=== PATIENT | female | born 2000 | race Caucasian/White ===

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

== ENCOUNTER 2020-07-05 21:58 | Outpatient (REF) | payer MEDICAID, SELFPAY ==
[2020-07-07 15:51] LABS: Chlamydia Result Negative (Negative); GC Result Negative (Negative)
== END 2020-07-05 22:18 ==
LOC: NCHCN 21:58
PROVIDERS: PCP Internal Medicine; Visit Provider Nurse Practitioner Family
DX: Z11.3 Encounter for screening for infections with a predominantly sexual mode of transmission (principal)
CPT/HCPCS: 87491; 87591

== ENCOUNTER 2021-10-17 09:52 | Outpatient (REF) | payer MEDICAID, SELFPAY ==
--- NOTE | 2021-10-17 09:00 | PAPFT_PTH ---
PATIENT: Liudmila Kiser LOC: [facility] U#:[id number] AGE/SX: 21/F ROOM: RE10/17/[address]: Grace Mendoza : 2000 BED: DIS: 10/17/2021 SPEC #: [id number] RECD: 10/18/21 12:53 STATUS: LUZ KENT #: [id number] PRESLEY: 10/17/21 09:[address]: Grace Raya [facility] Cytology RECD BY: Gail Ingram Tissues: 1 - CX/ENDOCX FOR PAP SMEARS Procedures: PAP THIN PREP/UVM Screening Comments: [id number]
[2021-10-17 15:00] LABS: Hemoglobin A1C 5.2 % (<5.7)
[2021-10-17 15:24] LABS: Calculated LDL 97 mg/dL (<100); Cholesterol 187 mg/dL (<200); HDL Cholesterol 76 mg/dL (40-60); TSH 1.97 uIU/mL (0.36-3.74); Triglyceride 71 mg/dL (<150)
== END 2021-10-17 09:53 | disposition home or self-care (01) ==
LOC: NCHCN 09:52
PROVIDERS: PCP Nurse Practitioner Family; Visit Provider Nurse Practitioner Family
DX: Z13.220 Encounter for screening for lipoid disorders (principal); E66.3 Overweight; Z13.1 Encounter for screening for diabetes mellitus; Z00.00 Encounter for general adult medical examination without abnormal findings; Z12.4 Encounter for screening for malignant neoplasm of cervix
CPT/HCPCS: 80061; 88142; 83036; 84443

== ENCOUNTER 2022-07-04 15:42 | Outpatient (REF) | payer MEDICAID, SELFPAY ==
[2022-07-06 15:25] LABS: Chlamydia Result Negative (Negative); GC Result Negative (Negative)
== END 2022-07-04 15:43 | disposition home or self-care (01) ==
LOC: NCHCN 15:42
PROVIDERS: PCP Nurse Practitioner Family; Visit Provider Nurse Practitioner Family
DX: R10.2 Pelvic and perineal pain (principal); R30.0 Dysuria
CPT/HCPCS: 87491; 87591

== ENCOUNTER 2024-10-26 18:51 | Outpatient (REF) | payer MEDICAID, SELFPAY ==
--- NOTE | 2024-10-26 14:30 | PAPFT_PTH ---
PATIENT: Liudmila Kiser LOC: [facility] U#:[id number] AGE/SX: 24/F ROOM: RE10/26/[address]: Grace Mendoza : 2000 BED: DIS: 10/26/2024 SPEC #: [id number] RECD: 10/27/24 12:47 STATUS: LUZ REQ #: [id number] PRESLEY: 10/26/24 14:[address]: Grace Raya DEPT: [facility] Cytology RECD BY: Gail Ingram Tissues: 1 - CX/ENDOCX FOR PAP SMEARS Procedures: PAP THIN PREP/UVM Screening HPV DNA PROBE Comments: [id number] (HPV 16 & 18/45)
--- OUTSIDE RECORDS SUMMARY | 2024-10-26 18:53 | XMS_ITS | Encounter Summary ---
Author Organization [facility] Address [address] [place] [address] Care Team Providers Care Teenage Babysitter Name Role Phone Grace Raya EARTHMOVING LABOURER Primary Care Provider [phone] Reason for Visit * Reason Onset Date Comments Medications Refill 10/14/2024 Encounter Details Date Type Department Care Team ([facility] Contact Info) Description 10/14/2024 Refill [facility] Rheumatology [address], [place] [id number] Dena Stephenson MD [address] [facility] [address] [place] [address] Medications Refill Social History Tobacco Use Types Packs/Day Years Used Date Smoking Tobacco: Never Smokeless Tobacco: Current Comments:Vape Alcohol Use Standard Drinks/Week Comments Yes 0 (1 standard drink = 0.6 oz pur e alcohol) rarely Humiliation, Afraid, Rape, and Kick questionnair e Answer Date Recorded Within the last year, have y ou been afraid of your partner or ex-partner? No 09/05/2020 Within the last year, have y ou been humiliated or emotionally abused in other ways by your partner or ex-partner? No Within the last year, have y ou been kicked, hit, slapped, or otherwise physically hurt by your partner or ex-partner? No 09/05/2020 Within the last year, have y ou been raped or forced to have any kind of sexual activity by your partner or ex-partner? No 09/05/2020 PHQ-2 Answer Date Recorded PHQ-2 SUBTOTAL 2 04/29/2024 Interpersonal Safety Answer Date Record ed Physically Hurt Never 06/12/2020 Verbally Threaten Not on file 06/12/2020 Comments Unknown Sex and Gender Information Value Date Recorded Sex Assigned at Not on file Legal Sex Female 18:34 EST Gender Identity Female 02/07/2020 8:04 EDT Sexual Orientation Not on file documented as of this encounter Functional Status * Are you deaf or do you have serious difficulty hearing? Answer Date of Assessment Author No 09/21/2022 9:26 EST Marlene Matson RN * Because of a physical, mental, or emotional condition, does this person have difficulty doing errands alone such as visiting a doctor's office or shopping? Answer Date of Assessment Author No 04/21/2024 10:55 EDT documented as of this encounter Mental Status * Because of a physical, mental, or emotional condition, does this person have serious difficulty concentrating, remembering, or making decisions? 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
--- OUTSIDE RECORDS SUMMARY | 2024-10-26 18:53 | XMS_ITS | Encounter Summary ---
Author Organization [facility] Address [address] [place] [address] Care Team Providers Care Electronic Warfare Officer Name Role Phone Grace Raya MUSICAL INSTRUMENT MECHANIC Primary Care Provider [phone] Reason for Referral * Radiology Services (Routine/Next Available) - Authorization Not Required Specialty Diagnoses / Procedures [facility] Referred To Contact Radiology Diagnoses Chronic right-sided low back pain with right-sided sciatica Procedures MR SI JOINTS WO CONTRAST MR PELVIS WO CONTRAST Dena Stephenson MD Phone: tel: fax: [facility] Referral ID Status Reason Start Date Expiration Date Visits Requested Visits Authorized [id number] Authorization Not Required 3 1 1 Reason for Visit * Reason Comments Follow-up Review test results Encounter Details Date Type Department Care Team (Late st Contact Info) Description 08/14/2023 14:30 EDT Telemedicine [facility] Rheumatology [address] [place] [address] Dena Stephenson MD [address] [facility] [place] [address] Chronic right-sided low back pain with right-sided sciatica (Primary Dx); Hypermobility arthralgia Social History Tobacco Use Types Packs/Day Years Used Date Smoking Tobacco: Never Smokeless Tobacco: Never Alcohol Use Standard Drinks/Week Comments Yes 0 (1 standard drink = 0.6 oz pur e alcohol) 5 drinks on weekends Humiliation, Afraid, Rape, and Kick questionnair e [...] by your partner or ex-partner? No 09/05/2020 Interpersonal Safety Answer Date Record ed Physically [...] or shopping? Answer Date of Assessment Author Yes 02/21/2021 9:47 EDT documented as of this encounter Mental Status * Because of a physical, mental, or emotional condition, does this person have serious difficulty concentrating, remembering, or making decisions? Answer Entry Date Author No 09/05/2020 15:32 EDT documented in this encounter Patient Instructions * Patient Instructions* Dena Stephenson MD - 08/14/2023 14:30 EDT Ordered blood test (HLA-B27 antigen test) Order non-contrast MRI pelvis Will be in touch with results and discuss next steps documented in this encounter Progress Notes * Dena Stephenson MD - 08/14/2023 1430 EDT [facility] Video Visit Today's visit was provided through telemedicine video conferencing: The location of the patient: Home The location of the provider: Home office Verbal consent: The concept of ???Telemedicine?? has been described to the patient.Patient has been informed of the anticipated benefits and possible risks. Patient understands the information provided regarding telemedicine, has had the opportunity to ask questions about this information, and all questions have been answered to patient???s satisfaction. Patient consents for the use of telemedicine in his/her medical care and authorizes the transmission of any relevant medical information to providers and their staff involved in patient???s medical or mental health care. Verbal consent obtained by myself or auxiliary staff: yes. Subjective: Chief Complaint(s): Follow-up (Review test results) HPI: Chronic right-sided low back pain with radicular features. Not classically responsive to NSAIDS. Equivocal inflammatory features. Hypermobility. Past xrays of the lumbar spine read as unremarkable interms of the spine itself and question of sclerotic changes involving the LEFT SI joint -- Iris is symptomatic on the right, moreso than left. Iris has a h/o vitiligo, alopecia areata, and eczema -- these autoimmune conditions are commonly associated. MRI in 2019 with asymmetric sacroiliitis on theright, predominantly iliac side of SI joint. EL 160, homogeneous pattern; specific antibodies for SLE, Sjogren's, etc are negative. No response to right SI joint injection in mid-2019, done at [facility] (in fact, steroid injection increased pain). INTERVAL HISTORY: Liudmila returns for follow up to review recent tests. Xrays of the SI joints from 08/02/23, were read as having mild degenerative changes and question of mild erosions of both joints. In my review, the erosions are not a definitive finding. Today, Liudmila reports no changes since the prior visit about two weeks ago. Liudmila is taking gabapentin, up to 300 mg per day, and occasional APAP. Has a stomach ulcer, so had to stop meloxicam, which had questionable benefit. I have reviewed patient's tobacco history: reports that she has never smoked. She has never used smokeless tobacco. I have reviewed current problem list and current medications. ROS: No new issues since visit two weeks ago. Objective: Examination: Home Vitals: There were no vitals taken for this visit. Pertinent exam findings: appears well, non-labored breathing and mood and affect appropriate Data reviewed with patient: most recent labs reviewed: see HPI and most recent imaging reviewed: see HPI Phlebotomy Only on 07/30/2023 Component Date Value Ref Range Status ? ? C-Reactive Protein 07/30/2023 <7.0 <10.0 mg/L Final ??? WBC 07/30/2023 9.16 4.00 - 12.40 K/cmm Final ??? RBC 07/30/2023 4.23 3.86 - 5.04 M/cmm Final ??? Hemoglobin 07/30/2023 12.6 11.6 - 15.2 g/dL Final ??? HCT 07/30/2023 37.1 34.9 - 44.4 % Final ??? MCV 07/30/2023 88 81 - 98 fL Final ??? MCH 07/30/2023 29.8 26.7 - 33.3 pg Final ??? MCHC 07/30/2023 34.0 32.1 - 35.9 g/dL Final ? ? RDW-CV 07/30/2023 12.2 <14.7 % Final ? ? RDW-SD 07/30/2023 39.3 <50.4 fl Final ??? PLT 07/30/2023 340 141 - 377 K/cmm Final ??? MPV 07/30/2023 10.2 9.5 - 12.7 fL Final ??? % Neutrophils 07/30/2023 60.4 % Final ??? % Lymphocytes 07/30/2023 26.5 % Final ??? % Monocytes 07/30/2023 7.6 % Final ??? % Eosinophils 07/30/2023 3.7 % Final ??? % Basophils 07/30/2023 0.9 % Final ??? % Immature Grans 07/30/2023 0.9 % Final ??? Absolute Neutrophils 07/30/2023 5.53 2.20 - 8.85 K/cmm Final ??? Absolute Lymphocytes 07/30/2023 2.43 1.09 - 3.30 K/cmm Final ??? Absolute Monocytes 07/30/2023 0.70 0.10 - 0.80 K/cmm Final ??? Absolute Eosinophils 07/30/2023 0.34 0.03 - 0.61 K/cmm Final ??? ABS Basophils 07/30/2023 0.08 0.01 - 0.11 K/cmm Final ??? Absolute Immature Grans 07/30/2023 0.08 (H) 0.00 - 0.06 K/cmm Final ??? Type of Differential: 07/30/2023 Auto Final ??? Sodium 07/30/2023 138 136 - 145 mmol/L Final ??? Potassium 07/30/2023 4.1 3.5 - 5.0 mmol/L Final ??? Chloride 07/30/2023 102 96 - 110 mmol/L Final ??? CO2 Total 07/30/2023 25 22 - 32 mmol/L Final ??? Glucose 07/30/2023 92 70 - 99 mg/dl Final ??? BUN 07/30/2023 10 10 - 26 mg/dL Final ??? Creatinine 07/30/2023 0.53 0.52 - 1.04 mg/dL Final ? ? eGFR 07/30/2023 133 >60 mL/min/1.73m2 Final ??? Total Protein 07/30/2023 8.4 (H) 6.3 - 8.2 g/dL Final ??? Albumin 07/30/2023 4.4 3.4 - 4.9 g/dL Final ??? Alkaline Phosphatase 07/30/2023 54 38 - 126 U/L Final ??? AST 07/30/2023 25 15 - 46 U/L Final ? ? ALT 07/30/2023 19 <35 U/L Final ? ? Bilirubin, Total 07/30/2023 0.5 <1.4 mg/dL Final ??? Calcium 07/30/2023 9.5 8.5 - 10.5 mg/dL Final ??? Albumin/Globulin Ratio 07/30/2023 1.1 1.0 - 2.5 g/dL Final ??? Anion Gap 07/30/2023 11 5 - 14 mmol/L Final Assessment & Plan: 1. Chronic right-sided low back pain with right-sided sciatica History of mostly unilateral (right sided) low back pain with equivocal inflammatory symptoms and equivocal response to NSAIDs; no response to steroid SI joint injection. Recent XR SI joints indicating mild erosions and more pronounced finding left side. Discussed with Iris that I need more information before confirming a diagnosis of autoimmune sacroiliitis vs. Hypermobility myalgia/arthralgiawith fibromyalgia features. Unilateral symptoms and normal C- reactive protein, as well as no definitive response to NSAIDs or SI joint injection favors the latter diagnosis. However, prior to concluding this, additional testing is warranted. - HLA B27 SCREEN, DNA; Future - MR PELVIS WO CONTRAST; Future 2. Hypermobility arthralgia As above. Follow up pending results. The following individuals and their role did participate in today's encounter visit: Provider: Dena Stephenson MD Patient Dena Stephenson MD 08/14/2023 15:12 documented in this encounter Plan of Treatment Upcoming Encounters Date Type Department Care Team (Late st Contact Info) Description 01/28/2025 8:30 EDT Office Visit [facility] Rheumatology [address] [place] [address] Dena Stephenson MD [address] [facility] [place] [address] documented as of this encounter Results * MR SI JOINTS WO CONTRAST (04/13/2024 17:08 EDT) Anatomical Region Laterality Modality Spine Magnetic Resonan ce 04/14/2024 14:0 9 EDT Impressions 04/14/2024 14:09 EDT * ??Bilateral SI joint changes as described above suggestive of prior sacroiliitis. * ??There are few foci of edema as described above which could suggest an active component, more conspicuous on the right. [id number] Narrative 04/14/2024 14:09 EDT Exam: MR SI JOINTS WO CONTRAST ??04/13/2024 4:28 PM Technique: MR SI JOINTS WO CONTRAST ?? Signs and Symptoms/Comments: Chronic SI joint pain, primarily right-sided, with mention of erosions seen on XR; clinically not definitive for autoimmune sacroiliitis; need more information to guide treatment; Chronic SI joint pain, primarily right-sided, with mention of erosions seen on XR; clinically not definitive for autoimmune sacroiliitis; need more information to guide treatment;M54.41:Chronic right-sided low back pain ?? Comparison: None. FINDINGS: BONE MARROW: No concerning lesions or significant signal abnormality. SACROILIAC JOINTS: Sacral and Iliac Bone: Subchondral sclerosis is present bilaterally within the mid, superior, and inferior SI joints. Scattered regions of subchondral edema within the right iliac side of the SI joint along its mid and superior levels. A few foci of subchondral edema within the left iliac side of the SI joint are also present along its mid aspect. Joint Effusion: None. Erosive Changes: Bilateral osseous irregularity along the subchondral iliac side of the mid SI joints consistent with osseous erosions. Osteophytes: None. VISIBLE LUMBAR SPINE: Unremarkable. VISIBLE EXTRASPINAL SOFT TISSUES: Unremarkable. Resulting Agency Comment [id number] Procedure Note Jese Turcios MD - 04/14/2024 Exam: MR SI JOINTS WO CONTRAST 04/13/2024 4:28 PM Technique: MR SI JOINTS WO CONTRAST Signs and Symptoms/Comments: Chronic SI joint pain, primarily right-sided,with mention of erosions seen on XR; clinically not definitive forautoimmune sacroiliitis; need more information to guide treatment; ChronicSI joint pain, primarily right-sided, with mention of erosions seen on XR;clinically not definitive for autoimmune sacroiliitis; need moreinformation to guide treatment;M54.41:Chronic right-sided low back pain Comparison: None. FINDINGS: BONE MARROW: No concerning lesions or significant signal abnormality. SACROILIAC JOINTS: Sacral and Iliac Bone: Subchondral sclerosis is present bilaterally withinthe mid, superior, and inferior SI joints. Scattered regions ofsubchondral edema within the right iliac side of the SI joint along itsmid and superior levels. A few foci of subchondral edema within the leftiliac side of the SI joint are also present along its mid aspect. Joint Effusion: None. Erosive Changes: Bilateral osseous irregularity along the subchondraliliac side of the mid SI joints consistent with osseous erosions. Osteophytes: None. VISIBLE LUMBAR SPINE: Unremarkable. VISIBLE EXTRASPINAL SOFT TISSUES: Unremarkable. IMPRESSION * Bilateral SI joint changes as described above suggestive of priorsacroiliitis. * There are few foci of edema as described above which could suggest anactive component, more conspicuous on the right. [id number] Dena Stephenson MD IMG MRI ORDERABLES Final Result * HLA B27 SCREEN, DNA (08/17/2023 11:21 EDT) HLAB-B27 Result Positive Not Applicable 08/22/2023 15:12 EDT [facility] Interpretation SEE NOTE 08/22/2023 15:12 EDT [facility] Comment: HLA-B27 antigen was detected. Approximately 8% of the normal population carries the HLA-B27 antigen. HLA-B27 is present in approximately 89% of patients with ankylosing spondylitis, 79% of patients with Catherine's syndrome and 42% of patients with juvenile rheumatoid arthritis. However, lacking other data, it is not diagnostic for these disorders. This test does not differentiate B27 alleles. i.e. B*27:05, B*27:06, etc. ADDITIONAL INFORMATION Method: Flow Cytometry CLIA: [id number] ??CLIA Filer Repairer: ABDULKADIR MCPHERSON MD,PhD Test Performed by: [address] [address] Filer Repairer: Abdulkadir Mcpherson M.D. Ph.D.; CLIA# [id number] Blood VENOUS BLOOD / Unknown Venipuncture / Unknown 08/17/2023 11:21 EDT 08/17/2023 11:40 EDT Dena Stephenson MD TISSUE TYPING ORDERABLES Final Result [address] [address] documented in this encounter Visit Diagnoses Diagnosis Chronic right-sided low back pain with right-sided sciatica- Primary Hypermobility arthralgia Pain in joint, site unspecified Chronic right-sided low back pain with right-sided sciatica documented in this encounter Discontinued Medications Medication Sig Discontinue Reason Start Date End Da te triamcinolone (KENALOG) 0.1 % cream Apply topically 2 times daily. Alternate therapy 08/14/2023 documented as of this encounter Care Teams Electronic Warfare Officer Relationship Specialty Start Date End Date Grace Raya, MUSICAL INSTRUMENT MECHANIC [address] [place] [address] PCP - General 05/19/20 documented as of this encounter
--- OUTSIDE RECORDS SUMMARY | 2024-10-26 18:53 | XMS_ITS | Encounter Summary ---
Author Organization [facility] Address [address] [place] [address] Care Team Providers Care Armature Winder Name Role Phone Grace Raya SCIENTIFIC LINGUIST Primary Care Provider [phone] Reason for Referral * Radiology Services (Routine/Next Available) - Authorization Not Required Specialty Diagnoses / Procedures Referred By Contac t Referred To Contact Radiology Diagnoses Chronic right-sided low back pain with right-sided sciatica Procedures MR SI JOINTS WO CONTRAST MR PELVIS WO CONTRAST Dena Stephenson MD Phone: tel: fax: [facility] Referral ID Status Reason Start Date Expiration Date Visits Requested Visits Authorized [id number] Authorization Not Required 3 1 1 Reason for Visit * Radiology Services (Routine/Next Available) - Authorization Not Required Specialty Diagnoses / Procedures Referred By Contac t Referred To Contact Radiology Diagnoses Chronic right-sided low back pain with right-sided sciatica Procedures MR SI JOINTS WO CONTRAST MR PELVIS WO CONTRAST Dena Stephenson MD Phone: tel: fax: [facility] Referral ID Status Reason Start Date Expiration Date Visits Requested Visits Authorized [id number] Authorization Not Required 3 1 1 Encounter Details Date Type Department Care Team (Latest Contact Info) Description 04/13/2024 16:15 EDT - 04/13/2024 23:59 EDT Hospital Encounter [facility] [address] [place] [id number] Chronic right-sided low back pain with right-sided sciatica Discharge Disposition: Home or Self Care Social History Tobacco Use Types Packs/Day Years [...] 09/05/2020 15:32 EDT documented in this encounter Medications at Time of Discharge albuterol 90 mcg/actuation inhaler busPIRone (BUSPAR) 5 mg tablet Take 1 Tablet by mouth 2 times daily. 07/09/2023 citalopram (CELEXA) 20 mg tablet TAKE 1.5 TABLETS BY MOUTH EVERY DAY 12/17/2019 ondansetron (ZOFRAN) 4 mg tablet Take 1 Tablet by mouth every 8 hours as needed for Nausea. 10 Tablet 09/21/2022 rizatriptan benzoate (RIZATRIPTAN ORAL) Take by mouth if needed (PRN for migraine). triamcinolone (ARISTOCORT) 0.5 % cream Apply topically 2 times daily. use thin layer, as needed gabapentin (NEURONTIN) 100 mg capsule Take 3 Capsules by mouth daily. 3-4 times weekly 12/17/2019 prochlorperazine (COMPAZINE) 10 mg tablet Take 1 Tablet by mouth every 6 hours as needed for Nausea. 10 Tablet 09/19/2022 4 documented as of this encounter Discharge Disposition Disposition Code Departure Means Destination Home or Self Care documented in this encounter Plan of Treatment Upcoming Encounters Date Type Department Care Team (Late st Contact Info) Description 01/28/2025 8:30 EDT Office Visit [facility] Rheumatology [address] [place] [address] Dena Stephenson MD [address] [facility] [place] [phone] documented as of this encounter Procedures Procedure Name Priority Date/Time Associated Diagnosis Comments MR SI JOINTS WO CONTRAST Routine 04/13/2024 17:08 EDT Chronic right-sided low back pain with right-sided sciatica documented in this encounter Results * MR SI JOINTS WO CONTRAST (04/13/2024 17:08 EDT) Anatomical Region Laterality Modality Spine Magnetic Resonan ce 04/14/2024 14:0 9 EDT Impressions 04/14/2024 14:09 EDT * ??Bilateral SI joint changes as described above suggestive of prior sacroiliitis. * ??There are few foci of edema as described above which could suggest an active component, more conspicuous on the right. [id number] Narrative 04/14/2024 14:09 EDT Exam: MR SI [...] EXTRASPINAL SOFT TISSUES: Unremarkable. Resulting Agency Comment [id number] Procedure Note Jese Turcios MD - 04/14/2024 [...] anactive component, more conspicuous on the right. [id number] us Dena Stephenson MD IMG MRI ORDERABLES Final Result documented in this encounter Visit Diagnoses Diagnosis Chronic right-sided low back pain with right-sided sciatica documented in this encounter Care Teams Armature Winder Relationship Specialty Start Date End Date Grace Raya, BRUCE [address] [place] [address] PCP - General 05/19/20 documented as of this encounter
--- OUTSIDE RECORDS SUMMARY | 2024-10-26 18:53 | XMS_ITS | Encounter Summary ---
Author Organization [facility] Address [address] [place] [address] Care Team Providers Care Aquatics Director Name Role Phone Grace Raya SPIN TABLE OPERATOR Primary Care Provider [phone] Encounter Details Date Type Department Care Team ([facility] Contact Info) Description 11/29/2022 Orders Only [facility] Radiology - [facility] [address] [place] [address] Alex Parrish MD [address] [place] [address] Social History Tobacco Use Types Packs/Day Years [...] Info) Description 01/28/2025 8:30 EDT Office Visit [facility] Rheumatology [address] [place] [id number] Dena Stephenson MD [address] [facility] [address] [place] [phone] documented as of this encounter Visit Diagnoses Not on filedocumented in this encounter Care Teams Aquatics Director Relationship Specialty Start Date End Date Grace Raya NP [address] [place] [address] PCP - General 05/19/20 documented as of this encounter
--- OUTSIDE RECORDS SUMMARY | 2024-10-26 18:53 | XMS_ITS | Encounter Summary ---
Author Organization [facility] Address [address] [place] [address] Care Team Providers Care Mechanical Reliability Engineer Name Role Phone Grace Raya DEVELOPMENT REPRESENTATIVE Primary Care Provider Reason for Referral * Radiology Services (Routine/Next Available) - Authorization Not Required Specialty Diagnoses / Procedures Referred By Navdeep olvera Referred To Contact Diagnoses Chronic right-sided low back pain with right-sided sciatica Procedures XR SACROILIAC JOINTS 3 OR MORE VIEWS Dena Stephenson MD Phone: tel: fax: [facility] Referral ID Status Reason Start Date Expiration Date Visits Requested Visits Authorized [id number] Authorization Not Required 07/30/2023 1 1 Reason for Visit * Reason Comments Follow-up Chronic right-sided low back pain: Past 2 weeks she has been having a lot of pain and can't get out of bed. The pain has been radiating from the right to the left. Pain in neck and shoulder as well. Encounter Details Date Type Department Care Team (Late Contact Info) Description 07/30/2023 11:30 EDT Office Visit [facility] Rheumatology [address] [place] [address] Dena Stephenson MD [address] [place] [address] [address] [place] [address] Chronic right-sided low back pain with right-sided sciatica (Primary Dx); Myalgia; Hypermobility arthralgia Social History Tobacco Use Types [...] on file documented as of this encounter Last Filed Vital Signs Vital Sign Reading Time Taken Comments Blood Pressure 118/76 07/30/2023 1126 EDT Pulse 76 07/30/2023 1126 EDT Temperature 36.3 ??C (97.4 ??F) 07/30/2023 1126 EDT Respiratory Rate - - Oxygen Saturation - - Inhaled Oxygen Concentration - - Weight 71.7 kg (158 lb) 07/30/2023 1126 EDT Height - - Body Mass Index 28.9 07/01/2022 2254 EDT documented in this encounter Functional Status * Are you [...] * Patient Instructions* Dena Stephenson MD - 07/30/2023 11:30 EDT Labs and xrays today Will send you results on [facility] [place] [facility] documented in this encounter Progress Notes * Dena Stephenson MD - 07/30/2023 1130 EDT [facility] Rheumatology Chief Complaint Patient presents with ??? Follow-up Chronic right-sided low back pain: Past 2 weeks she has been having a lot of pain and can't get outof bed. The pain has been radiating from the right to the left. Pain in neck and shoulder as well. HPI: Chronic right-sided low back pain with radicular features. Past xrays of the lumbar spine read as unremarkable in terms of the spine itself and question of sclerotic changes involving the LEFT SI joint -- Iris is symptomatic on the right. Iris has a h/o vitiligo, alopecia areata, and eczema -- these autoimmune conditions are commonly associated. MRI with asymmetric sacroiliitis on the right, predominantly iliac side of SI joint. EL 160, homogeneous pattern; specific antibodies for SLE, Sjogren's, etc are negative. No response to right SI joint injection in mid-2019, done at [facility] (in fact, increased pain). INTERVAL HISTORY: Liudmila returns for follow up. Last follow up was almost 3 years ago. Liudmila has a h/o chronic right sided low back pain, involving the SI joint. Not classically responsive to NSAIDS. Equivocal inflammatory features. Hypermobility. 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 I ordered a right SI joint cortisone injection at the last visit. Per review of the chart, Liudmila also had an evaluation at [facility] in 02/2021, and no definitive diagnosis was given; another rheumatology consult was recommended. Today, Liudmila says she has had difficulty over the past two weeks with a lot of pain and not wanting to get out of bed due to pain. Says lying still helps. Regarding the right SI joint injection that she had in 2019, she says the injection hurt a lot and says she passed out on the table as well. Liudmila says the injection didn't help as well. Says she gave up on going to appointments for her back because nothing was helping. Says pain is still on the right side, but she has occasional similar symptoms on the left as well. Liudmila also mentions that the right side of her neck hurts, into the rightshoulder blade. Says sternum pops when she actively pushes her chest forward. Low back hurts more in the morning, but says it's hard to say if pain improves with movement. Liudmila says she is using tiger balm, massage, exercising, stretching. She is taking gabapentin, up to300 mg per day, and occasional APAP. Has a stomach ulcer, so had to stop meloxicam, which had questionable benefit. Outpatient Encounter Medications as of 07/30/2023 Medication Sig ??? albuterol 90 mcg/actuation inhaler 2 puff(s) inhaled every 6 hours prn ??? citalopram (CELEXA) 20 mg tablet TAKE 1.5 TABLETS BY MOUTH EVERY DAY ??? gabapentin (NEURONTIN) 100 mg capsule Take 3 Capsules by mouth daily. ??? inhalational spacing device (AEROCHAMBER MV) Inhale as directed. (Patient not taking: Reported on 06/12/2021) ??? levonorgestrel (MARIAN INTRAUTERINE) by intrauterine route. Put in 3 days ago. (Patient not taking: Reported on 07/30/2023) ??? ondansetron (ZOFRAN) 4 mg tablet Take 1 Tablet by mouth every 8 hours as needed for Nausea. ??? prochlorperazine (COMPAZINE) 10 mg tablet Take 1 Tablet by mouth every 6 hours as needed for Nausea. ??? rizatriptan benzoate (RIZATRIPTAN ORAL) Take by mouth if needed (PRN for migraine). ??? triamcinolone (ARISTOCORT) 0.5 % cream Apply topically 2 times daily. use thin layer ??? triamcinolone (KENALOG) 0.1 % cream Apply topically 2 times daily. (Patient not taking: Reported on 06/12/2021) No facility-administered encounter medications on file as of 07/30/2023. Allergies include: Fluconazole and Prednisone Patient Active Problem List Diagnosis ??? Exercise-induced asthma ??? Chronic right-sided low back pain with right-sided sciatica ??? Chronic gingivitis ??? Alcohol abuse ??? Alopecia ??? Sacroiliitis (HCC-CMS) ??? Lichen simplex chronicus ??? Bacterial vaginosis ??? Vaginal candidiasis ??? Right lumbar radiculopathy ??? Perianal dermatitis ??? Depression with anxiety ??? Fear of flying ??? History of varicella ??? Learning difficulty ??? Mild intermittent asthma ??? Classical migraine ??? IUD contraception ??? Pes planus ??? Overweight ??? Eczema ??? 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 Lives in [place]. Review of Systems: No reports of shortness of breath. Has eczema, treated with topical steroid. Physical Examination: BP 118/76 (BP Cuff Location: Right arm, BP Patient Position: Sitting) Pulse 76 Temp 36.3 ??C (97.4 ??F) (Temporal) Wt 71.7 kg (158 lb) BMI 28.90 kg/m?? EYES: Conjunctivae not injected. NECK: Normal extension and lateral rotation without pain, with discomfort right trap muscles, radiating to right shoulder blade, rhomboid muscle group, which is tender. JOINT EXAM: No synovitis of the joints of the hands, wrists. Full painless ROM of shoulders, elbows, wrists, hips, knees and ankles. Elbows and knees are hypermobile. Tender points in all 4 quadrants. Pes planus. BACK: Tender at right and left SI joint and across lower back. Negative JOHNNA bilaterally. Can flexforward and touch floor. SKIN: No rash on arms, legs. No nail pitting. Hypopigmentation on forehead. Labs: Phlebotomy Only on 07/30/2023 Component Date Value [...] 07/30/2023 11 5 - 14 mmol/L Final Xrays lumbar spine, 08/12/19, Josefina, indicated increased sclerosis of the left SI joint, and unremarkable lumbar spine. Xrays reviewed. I agree with this assesment. MRI pelvis, 07/01/20: Findings of asymmetric sacroiliitis, right greater than left, most concerning for inflammatory arthropathy. Of note, sclerosis is predominantly iliac side of the SI joint. Assessment and Plan: 1. Chronic right-sided low back pain with right-sided sciatica Chronic right sided low back pain, involving the SI joint. Not classically responsive to NSAIDS. Equivocal inflammatory features. Did not improve with cortisone injection. Liudmila has hypermobility and fibromyalgia features. Labs with C-reactive protein are within normal limits. At this time, I have astrong suspicious that her symptoms are due to fibromyalgia and hypermobility. I'm not convinced that this is early ankylosing spondylitis or other inflammatory spondyloarthropathy. Another consideration is osteitis condensans ilii due to mechanical cause. Will update image to assess for any progression. - XR SACROILIAC JOINTS 3 OR MORE VIEWS; Future 2. Myalgia - C REACTIVE PROTEIN; Future - COMPLETE BLOOD COUNT AND DIFFERENTIAL; Future - COMPREHENSIVE METABOLIC PANEL (CMP); Future 3. Hypermobility arthralgia I discussed with Liudmila that if test results are indicative of non-inflammatory cause, then treatmentshould be focused on chronic pain and fibromyalgia, following up with her PCP. Follow up pending results. I spent a total of 45 minutes on the date of this encounter meeting with the patient and reviewing documentation/coordinating care as described in the above note. No procedures were performed at the time of the visit. Dena Stephenson MD 07/30/2023 11:36 documented in this encounter Plan of Treatment Upcoming Encounters Date Type Department Care Team (Late st Contact Info) Description 01/28/2025 8:30 EDT Office Visit [facility] Rheumatology [address] [place] [address] Dena Stephenson MD [address] [place] [address] [place] [phone] documented as of this encounter Results * XR SACROILIAC JOINTS 3 OR MORE VIEWS (08/02/2023 16:15 EDT) Anatomical Region Laterality Modality Spine Computed Radiogr aphy 08/02/2023 15:5 1 EDT Impressions 08/03/2023 14:22 EDT Mild degenerative changes of the sacroiliac joints with evidence of mild erosions which is suggestive of a sacroiliitis. THIS DOCUMENT HAS BEEN ELECTRONICALLY SIGNED BY WENDY LOVING MD FOR ANY QUESTIONS OR CONCERNS REGARDING THIS REPORT PLEASE CALL [facility] AT [phone] Narrative 08/03/2023 14:22 EDT PROCEDURE INFORMATION: Exam: XR Bilateral Sacroiliac Joints Exam date and time: 08/02/2023 3:51 PM Age: 23 years old Clinical indication: Other chronic pain; Lumbago with sciatica, right side; Other: Progressive low back pain; Assess for sacroiliitis TECHNIQUE: Imaging protocol: XR bilateral XR of the sacroiliac joints. Views: 3 or more views. COMPARISON: MR PELVIS WITHOUT CONTRAST 06/30/2020 5:31 PM FINDINGS: Bones/joints: There are mild degenerative changes of the sacroiliac joints, left greater than right. There is a nonspecific sclerotic lesion within the left femoral neck which likely represents a bone island. Small erosions are seen about the sacroiliac joints. ??No acute fracture. ??No dislocation. Soft tissues: ??No radiopaque foreign body. Procedure Note Wendy Loving MD - 08/03/2023 PROCEDURE INFORMATION: Exam: XR Bilateral Sacroiliac Joints Exam date and time: 08/02/2023 3:51 PM Age: 23 years old Clinical indication: Other chronic pain; Lumbago with sciatica, right side; Other: Progressive low back pain; Assess for sacroiliitis TECHNIQUE: Imaging protocol: XR bilateral XR of the sacroiliac joints. Views: 3 or more views. COMPARISON: MR PELVIS WITHOUT CONTRAST 06/30/2020 5:31 PM FINDINGS: Bones/joints: There are mild degenerative changes of the sacroiliac joints, left greater than right. There is a nonspecific sclerotic lesion within the left femoral neck which likely represents a bone island. Small erosions are seen about the sacroiliac joints. No acute fracture. No dislocation. Soft tissues: No radiopaque foreign body. IMPRESSION Mild degenerative changes of the sacroiliac joints with evidence of mild erosions which is suggestive of a sacroiliitis. THIS DOCUMENT HAS BEEN ELECTRONICALLY SIGNED BY WENDY LOVING MD FOR ANY QUESTIONS OR CONCERNS REGARDING THIS REPORT PLEASE CALL [facility] [phone] us Dena Stephenson MD IMG DIAGNOSTIC IMAGING ORDERABL ES Final Result * (ABNORMAL) COMPREHENSIVE METABOLIC PANEL (CMP) (07/30/2023 12:22 EDT) Sodium 138 136 - 145 mmol/L 07/30/2023 13:08 [facility] Potassium 4.1 3.5 - 5.0 mmol/L 07/30/2023 13:08 [facility] Chloride 102 96 - 110 mmol/L 07/30/2023 13:08 [facility] CO2 Total 25 22 - 32 mmol/L 07/30/2023 13:08 [facility] Glucose 92 70 - 99 mg/dl 07/30/2023 13:08 [facility] BUN 10 10 - 26 mg/dL 07/30/2023 13:08 [facility] Creatinine 0.53 0.52 - 1.04 mg/dL 07/30/2023 13:08 [facility] eGFR 133 >60 mL/min/1.7 3m2 07/30/2023 13:08 [facility] Total Protein 8.4(H) 6.3 - 8.2 g/dL 07/30/2023 13:08 [facility] Albumin 4.4 3.4 - 4.9 g/dL 07/30/2023 13:08 [facility] Alkaline Phosphatase 54 38 - 126 U/L 07/30/2023 13:08 [facility] AST 25 15 - 46 U/L 07/30/2023 13:08 [facility] ALT 19 <35 U/L 07/30/2023 13:08 [facility] Bilirubin, Total 0.5 <1.4 mg/dL 07/30/20 13:08 [facility] Calcium 9.5 8.5 - 10.5 mg/dL 07/30/2023 13:08 [facility] Albumin/Globulin Ratio 1.1 1.0 - 2.5 g/dL 07/30/2023 13:08 [facility] Anion Gap 11 5 - 14 mmol/L 07/30/2023 13:08 [facility] Blood VENOUS BLOOD / Unknown Venipuncture / Unknown 07/30/2023 12:22 EDT 07/30/2023 12:34 EDT us Dena Stephenson MD CHEMISTRY & BLOOD GAS ORDERABLE S Final Result [facility] [address] [place] [address] * (ABNORMAL) COMPLETE BLOOD COUNT AND DIFFERENTIAL (07/30/2023 12:22 EDT) WBC 9.16 4.00 - 12.40 K/cmm 07/30/2023 12:46 [facility] RBC 4.23 3.86 - 5.04 M/cmm 07/30/2023 12:46 [facility] Hemoglobin 12.6 11.6 - 15.2 g/dL 07/30/2023 12:46 [facility] HCT 37.1 34.9 - 44.4 % 07/30/2023 12:46 [facility] MCV 88 81 - 98 fL 07/30/2023 12:46 [facility] MCH 29.8 26.7 - 33.3 pg 07/30/2023 12:46 [facility] MCHC 34.0 32.1 - 35.9 g/dL 07/30/2023 12:46 [facility] RDW-CV 12.2 <14.7 % 07/30/2023 12:46 [facility] RDW-SD 39.3 <50.4 fl 07/30/2023 12:46 [facility] PLT 340 141 - 377 K/cmm 07/30/2023 12:46 [facility] MPV 10.2 9.5 - 12.7 fL 07/30/2023 12:46 [facility] % Neutrophils 60.4 % 07/30/2023 12:46 [facility] % Lymphocytes 26.5 % 07/30/2023 12:46 [facility] % Monocytes 7.6 % 07/30/2023 12:46 [facility] % Eosinophils 3.7 % 07/30/2023 12:46 [facility] % Basophils 0.9 % 07/30/2023 12:46 [facility] % Immature Grans 0.9 % 07/30/20 12:46 [facility] Absolute Neutrophils 5.53 2.20 - 8.85 K/cmm 07/30/2023 12:46 [facility] Absolute Lymphocytes 2.43 1.09 - 3.30 K/cmm 07/30/2023 12:46 [facility] Absolute Monocytes 0.70 0.10 - 0.80 K/cmm 07/30/2023 12:46 [facility] Absolute Eosinophils 0.34 0.03 - 0.61 K/cmm 07/30/2023 12:46 [facility] ABS Basophils 0.08 0.01 - 0.11 K/cmm 07/30/2023 12:46 [facility] Absolute Immature Grans 0.08(H) 0.00 - 0.06 K/cmm 07/30/2023 12:46 [facility] Type of Differential: Auto 07/30/2023 12:46 [facility] Blood VENOUS BLOOD / Unknown Venipuncture / Unknown 07/30/2023 12:22 EDT 07/30/2023 12:33 EDT us Dena Stephenson MD PACKAGES & DNA PROBE ORDERABLES Final Result [facility] [address] [place] [address] * C REACTIVE PROTEIN (07/30/2023 12:22 EDT) C-Reactive Protein <7.0 <10.0 mg/L 07/30/2023 13:08 EDT [facility] Blood VENOUS BLOOD / Unknown Venipuncture / Unknown 07/30/2023 12:22 EDT 07/30/2023 12:34 EDT us Dena Stephenson MD CHEMISTRY & BLOOD GAS ORDERABLE S Final Result [facility] [address] [place] [address] documented in this encounter Visit Diagnoses Diagnosis Chronic right-sided low back pain with right-sided sciatica- Primary Myalgia Mylagia and myositis, unspecified Hypermobility arthralgia Pain in joint, site unspecified Chronic right-sided low back pain with right-sided sciatica documented in this encounter Discontinued Medications Medication Sig Discontinue Reason Start Date End Da te levonorgestrel (MARIAN INTRAUTERINE) by intrauterine route. Put in 3 days ago. Therapy completed 07/30/2023 inhalational spacing device (AEROCHAMBER MV)Indications:use with proaire HFA Inhale as directed. Therapy completed 3 documented as of this encounter Historical Medications * This list may reflect changes made after this encounter. busPIRone (BUSPAR) 5 mg tablet Take 1 Tablet by mouth 2 times daily. 07/09/2023 added in this encounter Care Teams Mechanical Reliability Engineer Relationship Specialty Start Date End Date Grace Raya DEVELOPMENT REPRESENTATIVE [address] [place] [address] PCP - General 05/19/20 documented as of this encounter
--- OUTSIDE RECORDS SUMMARY | 2024-10-26 18:53 | XMS_ITS | Encounter Summary ---
Author Organization [facility] Address [address] [place] [address] Care Team Providers Care Brake Shoe Rebuilder Name Role Phone Grace Raya PROCEDURES TECH Primary Care Provider [phone] Encounter Details Date Type Department Care Team (Latest Contact Info) Description 09/09/2024 13:10 EDT Phlebotomy Only [facility] Laboratory Services - [address] [address] Need for hepatitis B screening test; Need for hepatitis C screening test; Screening for tuberculosis Social History Tobacco Use Types Packs/Day Years [...] 09/05/2020 15:32 EDT documented in this encounter Miscellaneous Notes * Result Encounter Note - Dena Stephenson MD - 09/09/2024 1310 EDT Proceeding with approval of [facility] documented in this encounter Plan of Treatment Upcoming Encounters Date Type Department Care Team (Late st Contact Info) Description 01/28/2025 8:30 EDT Office Visit [facility] Rheumatology [address] [place] [address] Dena Stephenson MD [address] [place] [address] [place] [phone] documented as of this encounter Procedures Procedure Name Priority Date/Time Associated Diagnosis Comments QUANTIFERON MITOGEN (PERFORMABLE) Routine 09/09/2024 13:08 EDT Screening for tuberculosis QUANTIFERON TB2 (PERFORMABLE) Routine 09/09/2024 13:08 EDT Screening for tuberculosis QUANTIFERON TB1 (PERFORMABLE) Routine 09/09/2024 13:08 EDT Screening for tuberculosis QUANTIFERON NIL (PERFORMABLE) Routine 09/09/2024 13:08 EDT Screening for tuberculosis QUANTIFERON INTERPRETATION (PERFORMABLE) Today 09/09/2024 13:08 EDT Screening for tuberculosis QUANTIFERON TB GOLD PLUS Routine 09/09/2024 13:08 EDT Screening for tuberculosis HEPATITIS C AB W REFLEX TO HCV RNA BY PCR Routine 09/09/2024 13:08 EDT Need for hepatitis C screening test HEPATITIS B SURFACE ANTIGEN Routine 09/09/2024 13:08 EDT Need for hepatitis B screening test documented in this encounter Results * QUANTIFERON INTERPRETATION (PERFORMABLE) (09/09/2024 13:08 EDT) Pathologist [facility] Quantiferon Interpretation Negative Negative 09/10/2024 13:00 EDT [facility] Comment:No interferon-gamma response to M. tuberculosis antigens was detected. ??Infection with M. tuberculosis is unlikely. A single negative result does not exclude infection with M. tuberculosis. ??In patients at high risk for M. tuberculosis infection, a second test should be considered. TB1 Ag minus Nil 0.00 IU/mL 09/10/20 13:00 EDT [facility] TB2 Ag minus Nil 0.00 IU/mL 09/10/20 13:00 EDT [facility] Blood VENOUS BLOOD / Unknown Venipuncture / Unknown 09/09/2024 13:08 EDT 09/10/2024 12:47 EDT us Dena Stephenson MD IMMUNOLOGY AND SEROLOGY ORDERAB LES Final Result [facility] [address] [place] [address] * QUANTIFERON MITOGEN (PERFORMABLE) (09/09/2024 13:08 EDT) Blood VENOUS BLOOD / Unknown Venipuncture / Unknown 09/09/2024 13:08 EDT 09/09/2024 13:10 EDT us Dena Stephenson MD IMMUNOLOGY AND SEROLOGY ORDERAB LES Final Result Performing Organization Address [facility] Co de Phone Number [facility] [address] [place] [address] * QUANTIFERON TB2 (PERFORMABLE) (09/09/2024 13:08 EDT) Blood VENOUS BLOOD / Unknown Venipuncture / Unknown 09/09/2024 13:08 EDT 09/09/2024 13:10 EDT us Denastef Stephenson MD IMMUNOLOGY AND SEROLOGY ORDERAB LES Final Result Performing Organization Address [facility] Co de Phone Number [facility] [address] [place] [address] * QUANTIFERON TB1 (PERFORMABLE) (09/09/2024 13:08 EDT) Blood VENOUS BLOOD / Unknown Venipuncture / Unknown 09/09/2024 13:08 EDT 09/09/2024 13:10 EDT us Denastef Stephenson MD IMMUNOLOGY AND SEROLOGY ORDERAB LES Final Result Performing Organization Address [facility] Co de Phone Number [facility] [address] [place] [id number] * QUANTIFERON NIL (PERFORMABLE) (09/09/2024 13:08 EDT) Blood VENOUS BLOOD / Unknown Venipuncture / Unknown 09/09/2024 13:08 EDT 09/09/2024 13:10 EDT us Denastef Stephenson MD IMMUNOLOGY AND SEROLOGY ORDERAB LES Final Result Performing Organization Address [facility]/ZIP Co de Phone Number [facility] [address] [place] [phone] * HEPATITIS C AB W REFLEX TO HCV RNA BY PCR (09/09/2024 13:08 EDT) Hep C Antibody Negative Negative 09/10/2024 15:36 EDT [facility] Blood VENOUS BLOOD / Unknown Venipuncture / Unknown 09/09/2024 13:08 EDT 09/09/2024 13:10 EDT Dena Stephenson MD CHEMISTRY & BLOOD GAS ORDERABLE S Final Result [facility] [address] [place], [place] [phone] * HEPATITIS B SURFACE ANTIGEN (09/09/2024 13:08 EDT) Hep B Surface Ag Negative Negative 09/10/2024 14:42 EDT [facility] Blood VENOUS BLOOD / Unknown Venipuncture / Unknown 09/09/2024 13:08 EDT 09/09/2024 13:10 EDT Dena Stephenson MD CHEMISTRY & BLOOD GAS ORDERABLE S Final Result [facility] [address] [place], [place] [address] documented in this encounter Visit Diagnoses Diagnosis Need for hepatitis B screening test Need for hepatitis C screening test Special screening examination for other specified viral diseases Screening for tuberculosis Screening examination for pulmonary tuberculosis documented in this encounter Care Teams Brake Shoe Rebuilder Relationship Specialty Start Date End Date Grace Raya NP [address] [place] [address] PCP - General 05/19/20 documented as of this encounter
--- OUTSIDE RECORDS SUMMARY | 2024-10-26 18:53 | XMS_ITS | Encounter Summary ---
Author Organization [facility] Address [address] [place] [address] Care Team Providers Care Steel Division Supervisor Name Role Phone Elver Grace Still SALES CONTRACT ADMINISTRATOR Primary Care Provider [phone] Reason for Visit * Reason Comments Back Pain Ankylosing spondylit is flare up since Saturday, unable to control pain with home remedies. Followed by trust and estates attorney. Encounter Details Date Type Department Care Team (Latest Contact Info) Description 04/29/2024 16:47 EDT - 04/29/2024 16:48 EDT Hospital Encounter [facility] - [address] [address] Discharge Disposition: Left without being seen Social History Tobacco Use Types Packs/Day Years [...] Sign Reading Time Taken Comments Blood Pressure 145/80 04/29/2024 1617 EDT Pulse 87 04/29/2024 1617 EDT Temperature 37.2 ??C (99 ??F) 04/29/2024 1617 EDT Respiratory Rate 24 04/29/2024 1617 EDT Oxygen Saturation 98% 04/29/2024 1617 EDT Inhaled Oxygen Concentration - - Weight - - Height - - Body Mass Index - - documented in this encounter Functional Status * [...] 1.5 TABLETS BY MOUTH EVERY DAY 12/17/2019 clobetasoL (TEMOVATE) 0.05 % external solutionIndicati ons:Psoriasis Apply topically 2 times daily. 50 mL 2 04/21/2024 ondansetron (ZOFRAN) 4 mg tablet Take 1 Tablet by mouth every 8 hours as needed for Nausea. 10 Tablet 09/21/2022 rizatriptan benzoate (RIZATRIPTAN ORAL) Take by mouth if needed (PRN for migraine). triamcinolone (ARISTOCORT) 0.5 % cream Apply topically 2 times daily. use thin layer, as needed UNKNOWN TO PATIENT control gabapentin (NEURONTIN) 100 mg capsule Take 3 Capsules by mouth daily. 3-4 times weekly 12/17/2019 4 documented as of this encounter Discharge Disposition Disposition Code Departure Means Destination Comment s Left without being seen documented in this encounter Plan of Treatment Upcoming Encounters Date Type Department Care Team (Late st Contact Info) Description 01/28/2025 8:30 EDT Office Visit [facility] Rheumatology [address] [place] [address] Dena Stephenson MD [address] [facility] [address] [place] [phone] documented as of this encounter Visit Diagnoses Not on filedocumented in this encounter Historical Medications * This list may reflect changes made after this encounter. UNKNOWN TO PATIENT control added in this encounter Care Teams Steel Division Supervisor Relationship Specialty Start Date End Date Grace Raya NP [address] [place] [address] PCP - General 05/19/20 documented as of this encounter
--- OUTSIDE RECORDS SUMMARY | 2024-10-26 18:53 | XMS_ITS | Encounter Summary ---
Author Organization [facility] Address [address] [place] [address] Care Team Providers Care Utility Manager Name Role Phone Grace Raya CORNER CUTTER Primary Care Provider [phone] Encounter Details Date Type Department Care Team ([facility] Contact Info) Description 07/30/2023 12:[address] [facility] - Outpatient Phlebotomy Drawing [address] [place] [address] Lab, [facility] Phlebotomy Myalgia Social History Tobacco Use Types Packs/Day Years [...] Info) Description 01/28/2025 8:30 EDT Office Visit [facility] Rheumatology [address] [place] [address] Dena Stephenson MD [address] [facility] [address] [place] [address] documented as of this encounter Procedures Procedure Name Priority Date/Time Associated Diagnosis Comments COMPLETE BLOOD COUNT AND DIFFERENTIAL Routine 07/30/2023 12:22 EDT Myalgia C REACTIVE PROTEIN Routine 07/30/2023 12 :22 EDT Myalgia COMPREHENSIVE METABOLIC PANEL (CMP) Routine 07/30/2023 12:22 EDT Myalgia documented in this encounter Results * (ABNORMAL) COMPREHENSIVE METABOLIC PANEL (CMP) (07/30/2023 12:22 EDT) Sodium 138 136 - 145 mmol/L 07/30/2023 13:08 EDT [facility] Potassium 4.1 3.5 - 5.0 mmol/L 07/30/2023 13:08 EDT [facility] Chloride 102 96 - 110 mmol/L 07/30/2023 13:08 [facility] CO2 Total 25 22 - 32 mmol/L 07/30/2023 13:08 [facility] Glucose 92 70 - 99 mg/dl 07/30/2023 13:08 [facility] BUN 10 10 - 26 mg/dL 07/30/2023 13:08 [facility] Creatinine 0.53 0.52 - 1.04 mg/dL 07/30/2023 13:08 [facility] eGFR 133 >60 mL/min/1.7 3m2 07/30/2023 13:08 [facility] Total Protein 8.4(H) 6.3 - 8.2 g/dL 07/30/2023 13:08 [facility] Albumin 4.4 3.4 - 4.9 g/dL 07/30/2023 13:08 [facility] Alkaline Phosphatase 54 38 - 126 U/L 07/30/2023 13:08 [facility] AST 25 15 - 46 U/L 07/30/2023 13:08 [facility] ALT 19 <35 U/L 07/30/2023 13:08 [facility] Bilirubin, Total 0.5 <1.4 mg/dL 07/30/20 13:08 [facility] Calcium 9.5 8.5 - 10.5 mg/dL 07/30/2023 13:08 [facility] Albumin/Globulin Ratio 1.1 1.0 - 2.5 g/dL 07/30/2023 13:08 [facility] Anion Gap 11 5 - 14 mmol/L 07/30/2023 13:08 [facility] Blood VENOUS BLOOD / Unknown Venipuncture / Unknown 07/30/2023 12:22 EDT 07/30/2023 12:34 EDT us Dena Stephenson MD CHEMISTRY & BLOOD GAS ORDERABLE S Final Result [facility] [address] [place] [address] * (ABNORMAL) COMPLETE BLOOD COUNT AND DIFFERENTIAL (07/30/2023 12:22 EDT) WBC 9.16 4.00 - 12.40 K/cmm 07/30/2023 12:46 [facility] RBC 4.23 3.86 - 5.04 M/cmm 07/30/2023 12:46 [facility] Hemoglobin 12.6 11.6 - 15.2 g/dL 07/30/2023 12:46 [facility] HCT 37.1 34.9 - 44.4 % 07/30/2023 12:46 [facility] MCV 88 81 - 98 fL 07/30/2023 12:46 [facility] MCH 29.8 26.7 - 33.3 pg 07/30/2023 12:46 [facility] MCHC 34.0 32.1 - 35.9 g/dL 07/30/2023 12:46 [facility] RDW-CV 12.2 <14.7 % 07/30/2023 12:46 [facility] RDW-SD 39.3 <50.4 fl 07/30/2023 12:46 [facility] PLT 340 141 - 377 K/cmm 07/30/2023 12:46 [facility] MPV 10.2 9.5 - 12.7 fL 07/30/2023 12:46 [facility] % Neutrophils 60.4 % 07/30/2023 12:46 [facility] % Lymphocytes 26.5 % 07/30/2023 12:46 [facility] % Monocytes 7.6 % 07/30/2023 12:46 [facility] % Eosinophils 3.7 % 07/30/2023 12:46 [facility] % Basophils 0.9 % 07/30/2023 12:46 [facility] % Immature Grans 0.9 % 07/30/20 12:46 [facility] Absolute Neutrophils 5.53 2.20 - 8.85 K/cmm 07/30/2023 12:46 [facility] Absolute Lymphocytes 2.43 1.09 - 3.30 K/cmm 07/30/2023 12:46 [facility] Absolute Monocytes 0.70 0.10 - 0.80 K/cmm 07/30/2023 12:46 [facility] Absolute Eosinophils 0.34 0.03 - 0.61 K/cmm 07/30/2023 12:46 [facility] ABS Basophils 0.08 0.01 - 0.11 K/cmm 07/30/2023 12:46 [facility] Absolute Immature Grans 0.08(H) 0.00 - 0.06 K/cmm 07/30/2023 12:46 [facility] Type of Differential: Auto 07/30/2023 12:46 [facility] Blood VENOUS BLOOD / Unknown Venipuncture / Unknown 07/30/2023 12:22 EDT 07/30/2023 12:33 EDT us Dena Stephenson MD PACKAGES & DNA PROBE ORDERABLES Final Result Performing Organization Address [facility] Co de Phone Number [facility] [address] [place] [address] * C REACTIVE PROTEIN (07/30/2023 12:22 EDT) C-Reactive Protein <7.0 <10.0 mg/L 07/30/2023 13:08 EDT [facility] Blood VENOUS BLOOD / Unknown Venipuncture / Unknown 07/30/2023 12:22 EDT 07/30/2023 12:34 EDT us Dena Stephenson MD CHEMISTRY & BLOOD GAS ORDERABLE S Final Result Performing Organization Address City/[facility]/ZIP Co de Phone Number [facility] [address] [place] [phone] documented in this encounter Visit Diagnoses Diagnosis Myalgia Mylagia and myositis, unspecified documented in this encounter Care Teams Utility Manager Relationship Specialty Start Date End Date Grace Raya NP [address] [place] [address] PCP - General 05/19/20 documented as of this encounter
--- OUTSIDE RECORDS SUMMARY | 2024-10-26 18:53 | XMS_ITS | Encounter Summary ---
Author Organization [facility] Address [address] [place] [address] Care Team Providers Care Pipe Machine Operator Name Role Phone Grace Raya ASSEMBLER KNIFE Primary Care Provider [phone] Encounter Details Date Type Department Care Team (Latest Contact Info) Description 09/22/[address] [facility] [address] [place], [place] [phone] Jese Becker [facility] Set up initial fill for Spondyloarthritis, Patient Education for Spondyloarthritis, Prospective Review for Spondyloarthritis Social History Tobacco Use Types Packs/Day Years [...] 09/05/2020 15:32 EDT documented in this encounter Progress Notes * Claudia Diaz - 09/22/2024 0829 EST New Start Outreach 09/22/2024 Medication Name: Humira Pen 40mg/0.4ml Copay/Day Supply: 0/28ds Copay Assistance: No Copay Assistance Type: N/A Notes: [facility] Training: Transfer to [facility] for Med Ed (new starts, therapy changes & dose changes) PCC Initials: CLS * Jese Becker [facility] - 09/22/2024 0829 EST [facility] Telephone Encounter 09/23/24 Contact: Outgoing Spoke with: Patient Reason: NS Humira Patient declining injection training. [facility] contacting patient to attempt to provide med ed for NS Nehalria. Assessment & Plan: LM - can call back to clinic or [facility] to ask to speak with [facility] for med ed. Method of Communication: Telephonic Jese Becker PharmD (he/him) Ambulatory Pharmacist Clinician Rheumatology 09/23/2024 * Sheila Reza [facility] - 09/22/2024 0829 EST [facility] Telephone Encounter 09/24/24 Method of Communication: Telephonic Spoke with: Left message for patient Reason: Med education for Humira Patient declined injection training. [facility] contacting patient to attempt to provide med ed for NS Humria. Assessment & Plan: LM - patient can call back to clinic or [facility] to speak with [facility] for med ed. Also sent op5t message. Sheila Reza, PharmD OP Ambulatory Pharmacist Clinician Penny 09/24/2024 * Sheila Reza [facility] - 09/22/2024 0829 EST [facility] Rheumatology/Immunology Clinic Clinical Pharmacist Note Medication Therapy Initiation Liudmila Kiser is a 24 y.o. female being started on Humira (adalimumab) for SpA. I performed a complete review of the patient???s medical record, including medications, immunizations, and allergies. Dose & Frequency: Humira (adalimumab) 40mg/0.4mL PEN 40 mg SQ every 14 days Planned Start Date: 09/25/24 Pharmacy: [facility] Potential barriers to therapy: None Method of Education: Telephone Prior Therapies: ibuprofen, meloxicam - minimal benefit Pre-Screening Labs: Lab Results Component Value Date WBC 9.16 07/30/2023 RBC 4.23 07/30/2023 HGB 12.6 07/30/2023 HCT 37.1 07/30/2023 MCV 88 07/30/2023 MCHC 34.0 07/30/2023 RDW 12.5 05/19/2020 PLT 340 07/30/2023 Lab Results Component Value Date NA 138 07/30/2023 K 4.1 07/30/2023 CL 102 07/30/2023 CO2 25 07/30/2023 BUN 10 07/30/2023 CREATININE 0.53 07/30/2023 Lab Results Component Value Date AST 25 07/30/2023 ALT 19 07/30/2023 ALKPHOS 54 07/30/2023 TBIL 0.5 07/30/2023 LABALBU 4.4 07/30/2023 TP 8.4 (H) 07/30/2023 No results found for: HIVRAPID, HIVP, [id number] Hep B Screening: no evidence of past or current infection Lab Results Component Value Date HBSAG Negative 09/09/2024 Lab Results Component Value Date Hep B Surface Ab, Qualitative Negative 05/12/2020 Lab Results Component Value Date Hepatitis B Core Ab, Total Negative 05/12/2020 TB Screening: Lab Results Component Value Date Quantiferon Interpretation Negative 09/09/2024 Hep C Screening: Lab Results Component Value Date XHCSCR2 Negative 09/09/2024 Medications: Outpatient Encounter Medications as of 09/22/2024 Medication Sig adalimumab (HUMIRA,CF, PEN) 40 mg/0.4 mL pen Inject 0.4 mL into the skin every 14 days. albuterol 90 mcg/actuation inhaler (Patient not taking: Reported on 04/29/2024) busPIRone (BUSPAR) 5 mg tablet Take 1 Tablet by mouth 2 times daily. citalopram (CELEXA) 20 mg tablet TAKE 1.5 TABLETS BY MOUTH EVERY DAY clobetasoL (TEMOVATE) 0.05 % external solution Apply topically 2 times daily. cyclobenzaprine (FLEXERIL) 5 mg tablet Take 1 Tablet by mouth at bedtime. gabapentin (NEURONTIN) 300 mg capsule Take 1 Capsule by mouth 3 times daily. ondansetron (ZOFRAN) 4 mg tablet Take 1 Tablet by mouth every 8 hours as needed for Nausea. (Patient not taking: Reported on 04/29/2024) rizatriptan benzoate (RIZATRIPTAN ORAL) Take by mouth if needed (PRN for migraine). (Patient not taking: Reported on 04/29/2024) triamcinolone (ARISTOCORT) 0.5 % cream Apply topically 2 times daily. use thin layer, as needed UNKNOWN TO PATIENT control No facility-administered encounter medications on file as of 09/22/2024. Drug Interactions: none Allergies Allergen Reactions Fluconazole Anaphylaxis Prednisone Hives and Palpitations Assessment & Plan Indication, effectiveness, safety and adherence of specialty medications were reviewed today. Patient was educated on the Humira labeled black box warnings regarding the risk of serious infections including tuberculosis and malignancies. Discussed other precautions with Humira including anaphylaxis/hypersensitivity and hepatitis B reactivation. Patient denies personal history of demyelinating disease or heart failure and was made aware of these precautions as well. Patient was educated on the importance of infection prevention including best practices for hand hygiene and the annual fluvaccine. Discussed the need to avoid live vaccines during treatment. Dose hold parameters were reviewed including suspected/known infection, prescribed antibiotic therapy, or scheduled surgery. Patient agrees to contact the clinic to review dose hold in these settings. Educated patient on the potential side effects of Humira including injection site reaction, headache, rash, and infections such as URTI/sinusitis. Discussed with patient that it may take 3-4 months to experience the full benefit of Humira. A review of dosing, storage, and administration was completed. Patient was educated on the dosing schedule, 40 mg subcutaneous every 14 days. Patient was made aware that Humira must be stored in the refrigerator and remains stable at room temperature for 14 days. Patient was advised on proper site rotation, site sterilization, and allowing the medication to reach room temperature prior to injection. Patient was encouraged to schedule an injection teaching appointment if they prefer to have first injection completed with medical oversight and was directed to view additional online video resources if needed. Patient will be provided with a sharps container or patient will purchase one and disposal of Humira was discussed. Patient questions/concerns: none reported Recommended immunizations: COVID-19. ok to get whenever she is ready and does not need to be timed with humira Counseled the patient on the following: -Therapeutic rationale / Goals of therapy discussed - reduce inflammation and joint pain -Onset of action: 4-12 weeks -Dosage and administration discussed - 40mg subQ once every other week -Safe handling, storage, and disposal - reviewed one time use and sharp container -Therapy contraindications discussed - none -Possible adverse effects and management - infection, headache, inj site rxn as well as black boxedwarning -Possible drug and prescription drug interactions - none -Adherence and missed doses discussed -Adherence tools reviewed: Calendar, Cell phone Outcomes of Education: Independent Follow up: - Phone call: 6 week follow up with pharmacist at next fill - Follow-up Labs: CBC/CMP every 3-4 months - Clinic Appointment: Follow up with Dena Stephenson. SHEILA REZA RPH Ambulatory Pharmacist Clinician - Rheumatology 09/25/2024 documented in this encounter Plan of Treatment Upcoming Encounters Date Type Department Care Team (Late st Contact Info) Description 01/28/2025 8:30 EDT Office Visit [facility] Rheumatology [address] [place] [address] Dena Stephenson MD [address] [facility] [address] [place] [address] documented as of this encounter Visit Diagnoses Not on filedocumented in this encounter Care Teams Pipe Machine Operator Relationship Specialty Start Date End Date Grace Raya NP [address] [place] [address] PCP - General 05/19/20 documented as of this encounter
--- OUTSIDE RECORDS SUMMARY | 2024-10-26 18:53 | XMS_ITS | Encounter Summary ---
Author Organization [facility] Address [address] [place] [address] Care Team Providers Care Lease Administration Analyst Name Role Phone Grace Raya WEB PAGE DEVELOPER Primary Care Provider [phone] Reason for Visit * Reason Onset Date Comments Medications Refill 09/22/2024 Encounter Details Date Type Department Care Team ([facility] Contact Info) Description 09/22/2024 Refill [facility] Rheumatology [address] [place], [place] [phone] Dena Stephenson MD [address] [facility] [address] [place] [address] Medications Refill Social History Tobacco [...] Info) Description 01/28/2025 8:30 EDT Office Visit [facility] Rheumatology [address] [place], [place] [phone] Dena Stephenson MD [address] [facility] [address] [place] [phone] documented as of this encounter Visit Diagnoses Diagnosis 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
--- OUTSIDE RECORDS SUMMARY | 2024-10-26 18:53 | XMS_ITS | Referral Summary ---
Author Organization [facility] Address [address] [place] [address] Care Team Providers Care Sql Server Architect Name Role Phone ElverGrace Tessy PUPPET MAKER Primary Care Provider [phone] Encounters Date Type Department Care Team Description 10/15/2024 Specialty Pharmacy [facility] [address] [place] [address] [phone] Jese Becker RPH Initial Clinical Follow-up (by 6 weeks) for Spondyloarthritis, Refill Coordination Outreach for Spondyloarthritis 10/14/2024 Refill [facility] Rheumatology [address] [place] [address] Dena Stephenson MD Medications Refill 10/11/2024 Refill [facility] Rheumatology [address] [place], [place] [address] Dena Stephenson MD Medications Refill 09/22/2024 Refill [facility] Rheumatology [address] [place] [address] [phone] Dena Stephenson MD Medications Refill 09/22/2024 Specialty Pharmacy [facility] [address] [place] [phone] Jese Becker RPH Set up initial fill for Spondyloarthritis, Patient Education for Spondyloarthritis, Prospective Review for Spondyloarthritis 09/18/2024 Telephone [facility] Rheumatology [address] [place] [address] Dena Stephenson MD Prior Auth, Medication (Humira) 09/09/2024 Telephone [facility] Rhe[facility] [address] [place], [place] [address] Dena Stephenson MD Appointment Related 09/09/2024 13:10 EDT Phlebotomy Only [facility] Services - [facility] ([facility] [address] [place] [address] [phone] Need for hepatitis B screening test; Need for hepatitis C screening test; Screening for tuberculosis from Last 3 Months Allergies Active Allergy Reactions Criticality Noted Date Comments Fluconazole Anaphylaxis High 07/01/2022 Prednisone Hives,Palpitations 02/07/2020 Medications citalopram (CELEXA) 20 mg tablet TAKE 1.5 TABLETS BY MOUTH EVERY DAY Active albuterol 90 mcg/actuation inhaler Active rizatriptan benzoate (RIZATRIPTAN ORAL) Take by mouth if needed (PRN for migraine). Active triamcinolone (ARISTOCORT) 0.5 % cream Apply topically 2 times daily. use thin layer, as needed Active ondansetron (ZOFRAN) 4 mg tablet Take 1 Tablet by mouth every 8 hours as needed for Nausea. 10 Tablet 022 Active Additional Information Patient not taking.Reported on 04/29/2024 busPIRone (BUSPAR) 5 mg tablet Take 1 Tablet by mouth 2 times daily. 023 Active clobetasoL (TEMOVATE) 0.05 % external solutionIndications:Ps oriasis Apply topically 2 times daily. 50 mL 2 Active UNKNOWN TO PATIENT control Active gabapentin (NEURONTIN) 300 mg capsule Take 1 Capsule by mouth 3 times daily. 90 Capsule 1 Active adalimumab (HUMIRA,CF, PEN) 40 mg/0.4 mL penIndications:Seroneg ative spondyloarthropathy Inject 0.4 mL into the skin every 14 days. 2 Each 5 Active cyclobenzaprine (FLEXERIL) 5 mg tablet Take 1 Tablet by mouth at bedtime. 30 Tablet 024 Active cyclobenzaprine (FLEXERIL) 5 mg tablet Take 1 Tablet by mouth at bedtime. 30 Tablet 024 2023 Disconti nued(August galvan) Active Problems Patient Care Coordination No te Formatting of this note migh t be different from the original. 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 Bacterial vaginosis 03/22/2021 Vaginal candidiasis 03/22/2021 Perianal dermatitis 03/22/2021 Depression with anxiety 03/22/2021 Fear of flying 03/22/2021 History of varicella 03/22/2021 Learning difficulty 03/22/2021 Mild intermittent asthma 03/22/2021 Classical migraine 03/22/2021 IUD contraception 03/22/2021 Pes planus 03/22/2021 Overweight 03/22/2021 Eczema 03/22/2021 Vitiligo 03/22/2021 Chronic gingivitis 07/21/2020 Alcohol abuse 07/21/2020 Chronic right-sided low back pain with right-slade ed sciatica 05/19/2020 Immunizations Name Administration Dates Next Due Covid-19 mRNA Vaccine (MODER NA COVID-19) PF 0.5 ml IM (12 yrs+) 12/08/2020,11/09/2020 Hepatitis A 02/25/2018,07/18/2017 Hepatitis A Vaccine Adult (HAVRIX/VAQTA) IM 07/18/2017 Hepatitis A Vaccine Ped-Adol (HAVRIX/VAQTA) 2 Dose IM 02/25/2018 Hepatitis B 08/15/2010,02/15/2010,11/01/2009 Hib 10/14/2010,08/21/2001,05/13/2001 Historical DTaP Vaccine, Unspecified ,08/21/2001,05/13/2001,12/09,2000 Historical H Influenzae Type B Conj Vaccine, Unspecified 2000 Historical HPV Vaccine, Unspecified 02/26/2014,1 ,06/25/2013 Historical Influenza Vaccine , Unspecified 09/17/2012 Historical Meningococcal ACW Y Vaccine, Unspecified 07/12/2011 Historical Pneumococcal Conj ugate Vaccine, Unspecified 08/21/2001,05/13/2001,2000,10/14 Historical Polio Vaccine, Unspecified ,07/25/2005,05/13/2001,12/09 Influenza Vaccine Quad (AFLU JOHNNY) PF 0.5 ml IM (3 yrs+) 08/12/2019,10/10/2018,08/20/2017 MMR Vaccine SQ 07/18/2004,08/21/2001 Meningococcal Conjugate (MCV 4) Vaccine (MENACTRA) 4-Valent IM 07/18/2017 Tdap Vaccine =>7YO IM 07/12/2011 Social History Tobacco Use Types Packs/Day Years Used Date Smoking Tobacco: Never Smokeless Tobacco: Current Tobacco Cessation:Ready to Q uit: Not Asked; Counseling Given: Not Answered Comments:Vape Alcohol Use Standard Drinks/Week Comments Yes [...] 8:04 EDT Sexual Orientation Not on file Last Filed Vital Signs Vital Sign Reading Time Taken Comments Blood Pressure 134/82 05/20/2024 0808 EDT Pulse 70 05/20/2024 0808 EDT Temperature 36.7 ??C (98.1 ??F) 05/20/2024 0808 EDT Respiratory Rate 18 05/20/2024 0808 EDT Oxygen Saturation 99% 05/20/2024 0808 EDT Inhaled Oxygen Concentration - - Weight 74.8 kg (165 lb) 04/21/2024 1051 EDT Height 157.5 cm (5' 2) 07/01/2022 2254 EDT Body Mass Index 30.18 07/01/2022 2254 EDT Functional Status * Are you deaf or do you have serious difficulty hearing? Answer Date of Assessment Author No 09/21/2022 9:26 Marlene Laura RN * Because of a physical, mental, or emotional condition, does this person have difficulty doing errands alone such as visiting a doctor's office or shopping? Answer Date of Assessment Author No 04/21/2024 10:55 EDT Mental Status * Because of a physical, mental, or emotional condition, does this person have serious difficulty concentrating, remembering, or making decisions? Answer Entry Date Author No 09/05/2020 15:32 EDT Plan of Treatment Upcoming Encounters Date Type Department Care Team (Late st Contact Info) Description 01/28/2025 8:30 EDT Office Visit [facility] Rheumatology [address] [place] [address] [id number] Dena Stephenson MD [address] [place] [address] [address] [place] [phone] Procedures Procedure Name Priority Date/Time Associated Diagnosis Comments QUANTIFERON INTERPRETATION (PERFORMABLE) Today 09/09/2024 13:08 EDT Screening for tuberculosis QUANTIFERON MITOGEN (PERFORMABLE) Routine 09/09/2024 13:08 EDT [...] EDT Need for hepatitis B screening test from Last 3 Months Results * QUANTIFERON MITOGEN (PERFORMABLE) (09/09/2024 13:08 EDT) Blood VENOUS BLOOD / Unknown Venipuncture / Unknown 09/09/2024 13:08 EDT 09/09/2024 13:10 EDT Dena Stephenson MD IMMUNOLOGY AND SEROLOGY ORDERAB LES Final Result Performing Organization Address City/[facility]/ZIP Co de Phone Number [facility] [address] [place] [address] * QUANTIFERON TB2 (PERFORMABLE) (09/09/2024 13:08 EDT) Blood VENOUS BLOOD / Unknown Venipuncture / Unknown 09/09/2024 13:08 EDT 09/09/2024 13:10 EDT Dena Stephenson MD IMMUNOLOGY AND SEROLOGY ORDERAB LES Final Result Performing Organization Address City/[facility] Co de Phone Number [facility] [address] [place] [address] * QUANTIFERON TB1 (PERFORMABLE) (09/09/2024 13:08 EDT) Blood VENOUS BLOOD / Unknown Venipuncture / Unknown 09/09/2024 13:08 EDT 09/09/2024 13:10 EDT Dena Stephenson MD IMMUNOLOGY AND SEROLOGY ORDERAB LES Final Result [facility] [address] [place] [address] * QUANTIFERON NIL (PERFORMABLE) (09/09/2024 13:08 EDT) Blood VENOUS BLOOD / Unknown Venipuncture / Unknown 09/09/2024 13:08 EDT 09/09/2024 13:10 EDT us Dena Stephenson MD IMMUNOLOGY AND SEROLOGY ORDERAB LES Final Result Performing Organization Address City/[facility] Co de Phone Number [facility] [address] [place] [address] * QUANTIFERON INTERPRETATION (PERFORMABLE) (09/09/2024 13:08 EDT) [facility] Quantiferon Interpretation Negative Negative 09/10/2024 13:00 EDT [facility] Comment:No interferon-gamma response to M. tuberculosis antigens was detected. ??Infection with M. tuberculosis is unlikely. A single negative result does not exclude infection with M. tuberculosis. ??In patients at high risk for M. tuberculosis infection, a second test should be considered. TB1 Ag minus Nil 0.00 IU/mL 09/10/20 13:00 EDT [facility] TB2 Ag minus Nil 0.00 IU/mL 09/10/20 13:00 EDT [facility] Blood VENOUS BLOOD / Unknown Venipuncture / Unknown 09/09/2024 13:08 EDT 09/10/2024 12:47 EDT Dena Stephenson MD IMMUNOLOGY AND SEROLOGY ORDERAB LES Final Result Performing Organization Address City/[facility]/ZIP Co de Phone Number [facility] [address] [place], [place] [phone] * HEPATITIS C AB W REFLEX TO HCV RNA BY PCR (09/09/2024 13:08 EDT) Hep C Antibody Negative Negative 09/10/2024 15:36 EDT [facility] Blood VENOUS BLOOD / Unknown Venipuncture / Unknown 09/09/2024 13:08 EDT 09/09/2024 13:10 EDT Dena Stephenson MD CHEMISTRY & BLOOD GAS ORDERABLE S Final Result [facility] [address] [place] [address] * HEPATITIS B SURFACE ANTIGEN (09/09/2024 13:08 EDT) Hep B Surface Ag Negative Negative 09/10/2024 14:42 EDT [facility] Blood VENOUS BLOOD / Unknown Venipuncture / Unknown 09/09/2024 13:08 EDT 09/09/2024 13:10 EDT Dena Stephenson MD CHEMISTRY & BLOOD GAS ORDERABLE S Final Result [facility] [address] [place] [address] from Last 3 Months Insurance MEDICAID [facility] MEDICAID [place] Care Teams Sql Server Architect Relationship Specialty Start Date End Date Grace Raya NP [address] [place] [address] PCP - General 05/19/20
--- OUTSIDE RECORDS SUMMARY | 2024-10-26 18:53 | XMS_ITS | Encounter Summary ---
Author Organization [facility] Address [address] [place] [address] Care Team Providers Care Loader Malt House Name Role Phone Grace Raya .NET ARCHITECT Primary Care Provider [phone] Reason for Visit * Reason Onset Date Comments Medication Problem 05/20/2024 Encounter Details Date Type Department Care Team ([facility] Contact Info) Description 05/20/2024 Telephone [facility] Ur[facility] Care - [address] [address] Gill Blake MD [address] [place] [address] Medication Problem Social History Tobacco Use Types Packs/Day Years [...] documented in this encounter Miscellaneous Notes * Telephone Encounter - Mayra Wells RN - 05/20/2024 0902 EDT Insurance won't cover ciprodex per pharmacy they will cover Cipro HC ear drops 3 drops BID. Please advise. documented in this encounter Plan of Treatment Upcoming Encounters Date Type Department Care Team (Late st Contact Info) Description 01/28/2025 8:30 EDT Office Visit [facility] Rheumatology [address] [place], [place] [phone] Dena Stephenson MD [address] [facility] [address] [place] [address] documented as of this encounter Visit Diagnoses Not on filedocumented in this encounter Care Teams Loader Malt House Relationship Specialty Start Date End Date Grace Raya, .NET ARCHITECT [address] [place] [address] PCP - General 05/19/20 documented as of this encounter
--- OUTSIDE RECORDS SUMMARY | 2024-10-26 18:53 | XMS_ITS | Encounter Summary ---
Author Organization [facility] Address [address] [place] [address] Care Team Providers Care Tax Examining Technician Name Role Phone Julian Rayai Tessy PIPE CLEANER Primary Care Provider [phone] Encounter Details Date Type Department Care Team (Latest Contact Info) Description 09/19/2022 Travel Social History Tobacco Use Types Packs/Day Years [...] 8:04 EDT Sexual Orientation Not on file COVID-19 Exposure Response Date Recorded In the last 10 days, have kenneth gunter been in contact with someone who was confirmed or suspected to have Coronavirus/COVID-19? No / Unsure 09/19/2022 8:33 EST documented as of this encounter Functional Status * Are you deaf or do you have serious difficulty hearing? Answer Date of Assessment Author No 09/19/2022 8:30 EST Son Santana RN * Because of a physical, mental, [...] Info) Description 01/28/2025 8:30 EDT Office Visit [facility] Rheumatology [address] [place] [address] [phone] Dena Stephenson MD [address] [facility] [address] [place] [address] documented as of this encounter Visit Diagnoses Not on filedocumented in this encounter Care Teams Tax Examining Technician Relationship Specialty Start Date End Date Grace Raya NP [address] [place], [place] [address] PCP - General 05/19/20 documented as of this encounter
--- OUTSIDE RECORDS SUMMARY | 2024-10-26 18:53 | XMS_ITS | Encounter Summary ---
Author Organization [facility] Address [address] [place] [address] Care Team Providers Care Corrosion Prevention Metal Sprayer Name Role Phone ElverGrace Tessy ORBITREAD OPERATOR Primary Care Provider [phone] Reason for Visit * Reason Comments Otalgia Left ear pain and lo ss of hearing w/ discharge x 1 month. Reccurent ear infections. Denies fever. Encounter Details Date Type Department Care Team (Latest Contact Info) Description 05/20/2024 8:11 EDT - 05/20/2024 9:07 EDT Hospital Encounter [facility] - [address] [address] Newton Aguirre MD [address] [place] [address] Otitis externa of left ear, unspecified chronicity, unspecified type (Primary Dx) Discharge Disposition: Home or Self Care Social [...] 09/05/2020 15:32 EDT documented in this encounter Discharge Instructions * Discharge Instructions* Newton Aguirre MD - 05/20/2024 9:03 EDT Ibuprofen up to 400-600 mg every 6 hours as needed. Better tolerated with food. Tylenol up to 1000 mg every 8 hours as needed. * Attachments The following attachments cannot be sent through Care Everywhere. * Otitis Externa (Vietnamese) documented in this encounter Medications at Time of Discharge albuterol 90 mcg/actuation inhaler busPIRone (BUSPAR) 5 mg tablet Take 1 Tablet by mouth 2 times daily. 07/09/2023 citalopram (CELEXA) 20 mg tablet TAKE 1.5 TABLETS BY MOUTH EVERY DAY 12/17/2019 clobetasoL (TEMOVATE) 0.05 % external solutionIndicati ons:Psoriasis Apply topically 2 times daily. 50 mL 2 04/21/2024 gabapentin (NEURONTIN) 300 mg capsule Take 1 Capsule by mouth 3 times daily. 90 Capsule 1 04/30/2024 ondansetron (ZOFRAN) 4 mg tablet Take 1 Tablet by mouth every 8 hours as needed for Nausea. 10 Tablet 09/21/2022 rizatriptan benzoate (RIZATRIPTAN ORAL) Take by mouth if needed (PRN for migraine). triamcinolone (ARISTOCORT) 0.5 % cream Apply topically 2 times daily. use thin layer, as needed UNKNOWN TO PATIENT control cyclobenzaprine (FLEXERIL) 5 mg tablet Take 1 Tablet by mouth at bedtime. 30 Tablet 04/30/2024 documented as of this encounter Ordered Prescriptions Prescription Sig Dispense Quantity Refills Last Filled Start Date End Date ciprofloxacin-hydro cortisone (CIPRO HC OTIC) otic suspension Place 3 Drops into both ears every 12 hours for 7 days. 10 mL 05/20/2024 05/27/2024 ciprofloxacin-dexam ethasone (CIPRODEX) otic suspension Place 4 Drops into the left ear 2 times daily for 7 days. 7.5 mL 05/20/2024 05/20/2024 documented in this encounter Discharge Disposition Disposition Code Departure Means Destination Comment s Home or Self Correction documented in this encounter ED Notes * Aldo Del Cid, RN - 05/20/2024 0907 EDT Pt discharged to Home, Reviewed AVS with pt, verbalized understanding of antibiotic use and side effects to monitor for, pain management, follow up with pcp, and s/sx to return to ED for. Left unit ambulatory without issue. * Newton Aguirre MD - 05/20/2024 0746 EDT DOS: 05/20/2024 Chief Complaint: Chief Complaint Patient presents with Otalgia Left ear pain and loss of hearing w/ discharge x 1 month. Reccurent ear infections. Denies fever. Assessment and Plan OE left acute on chronic, ciprodex for acute issue, she will be starting Humira for the underlying issue of psoriasis F/u acutely if any worsening Reviewed symptomatic treatment and indications for follow up. See discharge instructions. Final diagnoses: Otitis externa of left ear, unspecified chronicity, unspecified type Procedures No results found for this visit on 05/20/24. Radiology orders: None Consult orders: None Imaging Results None No orders to display The patient is a 23 y.o. female who presents today with Otalgia (Left ear pain and loss of hearing w/ discharge x 1 month. Reccurent ear infections. Denies fever. ) Chief complaint left ear pain and drainage The patient has a history of recurrent otitis externa on the left side with underlying psoriasis. When she has had flares she has been treated with antibiotics. She was last treated in January with Ciprodex and had good response to the treatment. She has seen rheumatology and there is a plan to start Humira.. Her current symptoms of pain and increased discharge, greenish began 3 to 4 days ago. Review of Systems Constitutional: Negative for chills and fever. HENT: Negative for congestion, rhinorrhea, sinus pressure and sinus pain. Respiratory: Negative for cough. Gastrointestinal: Negative for nausea and vomiting. No current facility-administered medications for this encounter. Current Outpatient Medications Medication Sig Dispense Refill albuterol 90 mcg/actuation inhaler (Patient not taking: Reported on 04/29/2024) busPIRone (BUSPAR) 5 mg tablet Take 1 Tablet by mouth 2 times daily. ciprofloxacin-dexamethasone (CIPRODEX) otic suspension Place 4 Drops into the left ear 2 times daily for 7 days. 7.5 mL 0 citalopram (CELEXA) 20 mg tablet TAKE 1.5 TABLETS BY MOUTH EVERY DAY clobetasoL (TEMOVATE) 0.05 % external solution Apply topically 2 times daily. 50 mL 2 cyclobenzaprine (FLEXERIL) 5 mg tablet Take 1 Tablet by mouth at bedtime. 30 Tablet 0 gabapentin (NEURONTIN) 300 mg capsule Take 1 Capsule by mouth 3 times daily. 90 Capsule 1 ondansetron (ZOFRAN) 4 mg tablet Take 1 Tablet by mouth every 8 hours as needed for Nausea. (Patient not taking: Reported on 04/29/2024) 10 Tablet 0 rizatriptan benzoate (RIZATRIPTAN ORAL) Take by mouth if needed (PRN for migraine). (Patient not taking: Reported on 04/29/2024) triamcinolone (ARISTOCORT) 0.5 % cream Apply topically 2 times daily. 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 Bacterial vaginosis 03/22/2021 Vaginal candidiasis 03/22/2021 Perianal dermatitis 03/22/2021 Depression with anxiety 03/22/2021 Fear of flying 03/22/2021 History of varicella 03/22/2021 Learning difficulty 03/22/2021 Mild intermittent asthma 03/22/2021 Classical migraine 03/22/2021 IUD contraception 03/22/2021 Pes planus 03/22/2021 Overweight 03/22/2021 Eczema 03/22/2021 Vitiligo 03/22/2021 Chronic gingivitis 07/21/2020 Alcohol abuse 07/21/2020 Chronic right-sided low back pain with right-sided sciatica 05/19/2020 Past Medical History: Diagnosis Date Alopecia areata Social History Tobacco Use Smoking status: Never Smokeless tobacco: Current Tobacco comments: Vape Substance Use Topics Alcohol use: Yes Comment: rarely Drug use: Yes Types: Marijuana Comment: occ History reviewed. No pertinent family history. BP 134/82 Pulse 70 Temp 98.1 ??F (36.7 ??C) Resp 18 SpO2 99% Physical Exam Vitals and nursing note reviewed. Constitutional: General: She is not in acute distress. Appearance: Normal appearance. She is well-developed. She is not diaphoretic. HENT: Head: Normocephalic and atraumatic. Right Ear: Tympanic membrane, ear canal and external ear normal. Left Ear: External ear normal. Ears: Comments: The left canal has edema and debris in the canal/yellowish. . The canal is open several mm. TM not visible. Mouth/Throat: Mouth: Mucous membranes are moist. Pharynx: Uvula midline. No uvula swelling. Eyes: Conjunctiva/sclera: Conjunctivae normal. Pulmonary: Effort: Pulmonary effort is normal. No respiratory distress. Breath sounds: Normal breath sounds. No stridor. No wheezing, rhonchi or rales. Musculoskeletal: General: No tenderness. Cervical back: Normal range of motion and neck supple. Right lower leg: No edema. Left lower leg: No edema. Lymphadenopathy: Cervical: No cervical adenopathy. Skin: General: Skin is warm and dry. Neurological: Mental Status: She is alert and oriented to person, place, and time. Psychiatric: Behavior: Behavior normal. PCP: [facility] Course A medical screening exam was performed. DISPOSITION: Discharged The patient's pain was managed to an adequate level weighing risk vs. benefit of further medications. Upon departure from [facility], the patient's pain was 8 on a zero to ten scale. Any further pain treatment will be at the discretion of the provider following up with the patient based on their clinical assessment . Condition at departure from the [facility] : Stable MDM 05/20/2024 9:11 documented in this encounter Plan of Treatment Upcoming Encounters Date Type Department Care Team (Late st Contact Info) Description 01/28/2025 8:30 EDT Office Visit [facility] Rheumatology [address] [place], [place] [phone] Dena Stephenson MD [address] [facility] [address] [place] [phone] documented as of this encounter Visit Diagnoses Diagnosis Otitis externa of left ear, unspecified chronicity, unspecified type- Primary documented in this encounter Discontinued Medications Medication Sig Discontinue Reason Start Date End Da te ciprofloxacin-dexamethaso ne (CIPRODEX) otic suspension Place 4 Drops into the left ear 2 times daily for 7 days. 05/20/2024 05/20/2024 documented as of this encounter Care Teams Corrosion Prevention Metal Sprayer Relationship Specialty Start Date End Date Grace Raya, ORBITREAD OPERATOR [address] [place] [address] PCP - General 05/19/20 documented as of this encounter
--- OUTSIDE RECORDS SUMMARY | 2024-10-26 18:53 | XMS_ITS | Encounter Summary ---
Author Organization [facility] Address [address] [place] [address] Care Team Providers Care Flying I Instructor Name Role Phone ElverGrace Tessy NURSE OUTREACH CASE MANAGER Primary Care Provider [phone] Reason for Visit * Reason Comments Rash Approx 7 months of L ear rash at ear opening w/malodorous yellow/green discharge Encounter Details Date Type Department Care Team (Latest Contact Info) Description 01/27/2024 9:12 EDT - 01/27/2024 10:13 EDT Hospital Encounter [facility] - [address] [address] Gina Anne MD [address] [place] [address] [phone] Newton Aguirre MD [address] [place] [address] [phone] Acute otitis externa of left ear, unspecified type (Primary Dx) Discharge Disposition: Home [...] Sign Reading Time Taken Comments Blood Pressure 138/79 01/27/2024 0926 EDT Pulse 88 01/27/2024 0926 EDT Temperature 36.5 ??C (97.7 ??F) 01/27/2024 0926 EDT Respiratory Rate 16 01/27/2024 0926 EDT Oxygen Saturation 98% 01/27/2024 0926 EDT Inhaled Oxygen Concentration - - Weight [...] this encounter Discharge Instructions * Discharge Instructions* Gina Anne MD - 01/27/2024 10:12 EDT Your ear symptoms are most likely due to a bacterial infection of the ear canal. Use the eardrops as directed. You may use them for 7-10 days total (try to use them for a couple days after your symptoms are resolved.) Try to keep the ears dry. Avoid swimming, or use good ear plugs to avoid water getting in ears. You may use ibuprofen and/or acetaminophen, per package instructions for pain. If you develop new or worsening symptoms, including fevers, chills or worsening or new pain you should be seen. * Attachments The following attachments cannot be sent through Care Everywhere. * Otitis Externa (Cymro) * Ears: Keeping Dry Instruction (Cymro) documented in this encounter Medications at Time [...] mouth daily. 3-4 times weekly 12/17/2019 4 prochlorperazine (COMPAZINE) 10 mg tablet Take 1 Tablet by mouth every 6 hours as needed for Nausea. 10 Tablet 09/19/2022 4 documented as of this encounter Ordered Prescriptions Prescription Sig Dispense Quantity Refills Last Filled Start Date End Date ciprofloxacin-dexam ethasone (CIPRODEX) otic suspension Place 4 Drops into the left ear 2 times daily for 10 days. 7.5 mL 01/27/2024 02/06/2024 documented in this encounter Discharge Disposition Disposition Code Departure Means Destination Comment s Home or Self [facility] documented in this encounter ED Notes * Gina Anne MD - 01/27/2024 0901 EDT DOS: 01/27/2024 Chief Complaint: Chief Complaint Patient presents with Rash Approx 7 months of L ear rash at ear opening w/malodorous yellow/green discharge Assessment and Plan The patient is a 23-year-old female here for evaluation of ear pain. She has had a rash of her leftear that has been chronic. More recently she has had pain and green malodorous discharge. She also has itching. Exam is most consistent with otitis externa. This seems more bacterial than fungal. She was given a prescription for Cipro eardrops. 3 drops twice daily for 7 to 10 days. She is to follow-up with her PCP. If symptoms do not improve she should see ENT. Final diagnoses: Acute otitis externa of left ear, unspecified type Procedures No results found for this visit on 01/27/24. Radiology orders: None Consult orders: None Imaging Results None No orders to display The patient is a 23 y.o. female who presents today with Rash (Approx 7 months of L ear rash at ear opening w/malodorous yellow/green discharge ) The patient is a 23-year-old female here for evaluation of ear pain. She has had a rash of her leftear that is likely psoriasis. She has chronic itching. She was treated by her PCP with an antifungal as well as medicines for psoriasis. This is gotten significantly worse in the last week. Rash Review of Systems Skin: Positive for rash. No current facility-administered medications for this encounter. Current Outpatient Medications Medication Sig Dispense Refill albuterol 90 mcg/actuation inhaler 2 puff(s) inhaled every 6 hours prn (Patient not taking: Reported on 01/27/2024) busPIRone (BUSPAR) 5 mg tablet Take 1 Tablet by mouth 2 times daily. ciprofloxacin-dexamethasone (CIPRODEX) otic suspension Place 4 Drops into the left ear 2 times daily for 10 days. 7.5 mL 0 citalopram (CELEXA) 20 mg tablet TAKE 1.5 TABLETS BY MOUTH EVERY DAY gabapentin (NEURONTIN) 100 mg capsule Take 3 Capsules by mouth daily. ondansetron (ZOFRAN) 4 mg tablet Take 1 Tablet by mouth every 8 hours as needed for Nausea. (Patient not taking: Reported on 01/27/2024) 10 Tablet 0 prochlorperazine (COMPAZINE) 10 mg tablet Take 1 Tablet by mouth every 6 hours as needed for Nausea. (Patient not taking: Reported on 01/27/2024) 10 Tablet 0 rizatriptan benzoate (RIZATRIPTAN ORAL) Take by mouth if needed (PRN for migraine). (Patient not taking: Reported on 01/27/2024) triamcinolone (ARISTOCORT) 0.5 % cream Apply topically 2 times daily. use thin layer Allergies Allergen Reactions Fluconazole Anaphylaxis Prednisone Hives and Palpitations Patient Active Problem List Diagnosis Date Noted Alopecia 03/22/2021 Sacroiliitis ([facility]) 03/22/2021 Lichen simplex chronicus 03/22/2021 [...] Substance Use Topics Alcohol use: Yes Comment: 5 drinks on weekends Drug use: Not Currently Types: Marijuana History reviewed. No pertinent family history. BP 138/79 Pulse 88 Temp 97.7 ??F (36.5 ??C) (Temporal) Resp 16 SpO2 98% Physical Exam Vitals and nursing note reviewed. Constitutional: General: She is not in acute distress. HENT: Head: Atraumatic. Left Ear: Tympanic membrane normal. Ears: Comments: There is erythema, swelling, crusting and fissuring of the left canal and opening to the ear. It is tender. Pulmonary: Effort: Pulmonary effort is normal. No respiratory distress. Skin: General: Skin is dry. Neurological: Mental Status: She is alert and oriented to person, place, and time. PCP: [facility] A medical screening exam was performed. DISPOSITION: Discharged The patient's pain was managed to an adequate level weighing risk vs. benefit of further medications. Upon departure from [facility], the patient's pain was 8 on a zero to ten scale. Any further pain treatment will be at the discretion of the provider following up with the patient based on their clinical assessment . Condition at departure from the [facility] : Good MDM 01/27/2024 21:02 documented in this encounter Plan of Treatment Upcoming Encounters Date Type Department Care Team (Late st Contact Info) Description 01/28/2025 8:30 EDT Office Visit [facility] Rheumatology [address] [place], [place] [address] Dena Stephenson MD [address] [facility] [address] [place] [phone] documented as of this encounter Visit Diagnoses Diagnosis Acute otitis externa of left ear, unspecified type- Primary documented in this encounter Care Teams Flying I Instructor Relationship Specialty Start Date End Date Grace Raya, NURSE OUTREACH CASE MANAGER [address] [place] [address] PCP - General 05/19/20 documented as of this encounter
--- OUTSIDE RECORDS SUMMARY | 2024-10-26 18:53 | XMS_ITS | Encounter Summary ---
Author Organization [facility] Address [address] [place] [address] Care Team Providers Care Dry Chain Puller Name Role Phone ElverGrace Tessy CAR RACER Primary Care Provider [phone] Encounter Details Date Type Department Care Team ([facility] Contact Info) Description 09/21/2022 9:14 EST - 09/21/2022 20:22 EST Emergency [facility] Emergency Department - [address] [id number] Malorie Mistry MD [address] [place] [phone] Newton Celis MD [address] [place] [phone] Nausea (Primary Dx) Discharge Disposition: Home or Self [...] Recorded In the last 10 days, have yo u been in contact with someone who was confirmed or suspected to have Coronavirus/COVID-19? No / Unsure 09/19/2022 8:33 EST documented as of this encounter Last Filed Vital Signs Vital Sign Reading Time Taken Comments Blood Pressure 101/53 09/21/20221999 EST Pulse 66 09/21/2022 1836 EST Temperature 36.3 ??C (97.3 ??F) 09/21/20221999 EST Respiratory Rate 18 09/21/20221999 EST Oxygen Saturation 100% 09/21/20221999 EST Inhaled Oxygen Concentration - - Weight 68 kg (150 lb) 09/21/2022 0928 EST Height - - Body Mass Index 27.44 07/01/2022 2254 EDT documented in this encounter [...] encounter Discharge Instructions * Discharge Instructions* Newton Celis MD - 09/21/2022 14:47 EST You were seen today for nausea and vomiting. On CT imaging, an area was seen in your liver that maybe due to fatty infiltration. Follow-up MRI is recommended. Please schedule follow-up with your primary care physician, Grace Raya, who will be able to refer you for MRI. I hope you feel better soon, Iris. Return to the Emergency Department (ED) if your condition worsens, does not improve as expected, orother new concerns arise. Specifically return if you have new or uncontrolled pain, high fever, difficulty breathing, vomiting and unable to keep down fluids or medications, or any other concerns. documented in this encounter Medications at Time of Discharge albuterol 90 mcg/actuation inhaler citalopram (CELEXA) 20 mg tablet TAKE 1.5 [...] mouth daily. 3-4 times weekly 12/17/2019 4 inhalational spacing device (AEROCHAMBER MV)Indications:u se with proaire HFA Inhale as directed. 3 levonorgestrel (MARIAN INTRAUTERINE) by intrauterine route. Put in 3 days ago. 3 prochlorperazine (COMPAZINE) 10 mg tablet Take 1 Tablet by mouth every 6 hours as needed for Nausea. 10 Tablet 09/19/2022 4 triamcinolone (KENALOG) 0.1 % cream Apply topically 2 times daily. 3 documented as of this encounter Ordered Prescriptions Prescription Sig Dispense Quantity Refills Last Filled Start Date End Date ondansetron (ZOFRAN) 4 mg tablet Take 1 Tablet by mouth every 8 hours as needed for Nausea. 10 Tablet 09/21/2022 documented in this encounter Discharge Disposition Disposition Code Departure Means Destination Home or Self Detention documented in this encounter ED Notes * Newton Celis MD - 09/21/2022 2014 EST I, Janes Alarcon, am scribing for Newton Celis MD while he is personally performing the service. Janes Alarcon 09/21/2022 20:14 Andie Lyman is a 22 y.o. female who presents to the ED with emesis. The patient presented to the ED for emesis that began approximately 3 days ago. The patient endorsed RUQ pain. Care and work-up prior to sign out includes haldol, ativan, and droperidol. I assumed care of patient from Dr. Mistry with reevaluation pending. After I assumed care the patient had: 2008: The patient woke and ambulated to the bathroom without difficulty. She is cleared for discharge at this time. The patient was given a trial of ambulation in the Emergency Department. The patient was able to ambulate about the Emergency Department without difficulty at baseline. Prior to discharge usual and customary precautions were reviewed with the patient and/or family including follow-up instructions and reasons to return to the Emergency Department if condition worsens, does not improve as expected, or other new concerns arise. Condition at departure from the Emergency Department: Good Disposition decisions were made weighing risks and benefits of hospitalization vs. outpatient treatment, the risk for further decompensation, and the patient???s wishes. Discharged. The patient was stable, improved, or requested discharge. Prior to discharge my usual and customary return precautions were reviewed with the patient and/or family. This included follow-up instructions and reasons to return to the Emergency Department if condition worsens, does not improve as expected, or other new concerns arise. Final diagnoses: Nausea This documentation is recorded by Janes Alarcon acting as Scribe under the direction and presenceof Newton Celis MD. Newton Celis MD: I personally performed the services recorded by the scribe in my presence. I confirm the scribe's documentation has been reviewed by me to accurately and completely record my work, treatment, procedures, and medical decision making. * Radha Dowling RN - 09/21/2022 1615 EST Patient appears to be sleeping at this time, no apparent distress. Even, unlabored respirations noted. * Fanny Michelle - 09/21/2022 0936 EST Emergency Department Visit Assessment and ED Course Andie Lyman is a 22 y.o. female with a history of cannabinoid hyperemesis who presents to the ED for continued nausea and vomiting. States that nausea has been worsening over past 3 days. Differential diagnosis: cannabinoid hyperemesis syndrome, biliary disease, pancreatitis, UTI, pyelonephritis, appendicitis Benign abdominal exam. CMP: CO2 14, AG 24, total protein 9.2, albumin 5.2, ALT 37. CBC w diff: platelets 380, otherwise unremarkable. EKG nonischemic, QTc 430. Pt received droperidol 1.25 mg, 1 L LR, haloperidol 2 mg, lorazepam 1 mg. RUQ ultrasound demonstrated a 2.8 cm geographic region of increased echogenicity is seen in the left lobe the liver adjacent to the falciform ligament. This most likely represents a region of focal fat, but MR is recommended on a nonurgent outpatient basis for confirmation that this represents focal fat. Pt sleeping at time of shift change. Droperidol, haloperidol, lorazepam are likely contributing to her sedation. Once pt's sedation abates, pt likely appropriate for discharge home. Recommended to follow up with PCP for MRI of liver. Pt signed out to night team. Final diagnoses: Nausea Disposition: No disposition on file Chief complaint: nausea and vomiting HPI Andie Lyman is a 22 y.o. female with a history of cannabinoid hyperemesis who presents to the ED for continued nausea and vomiting. States that nausea has been worsening over past 3 days. Endorses decreased appetite, frequent vomiting, nausea, loose stools. Describes worse pain in right upper quadrant that radiates towards diaphragm. States that food is undigested in emesis 12 hours after last eating. UDS positive for cannabinoids, cocaine. Denies melena, BRBPR, shortness of breath, constipation. History was provided by: pt, pt's sister Patient's pertinent PMH, FH, SH were reviewed and edited as necessary. ROS A 10-point review of systems was performed. The patient answered negative to all questions with theexceptions of those explicitly detailed as positives in the HPI. Pertinent negatives are also explicitly stated. Physical Exam BP (!) 117/102 (BP Cuff Location: Right arm, BP Patient Position: Sitting) Pulse 75 Temp 36.1 ??C (97 ??F) (Axillary) Resp 22 Wt 68 kg (150 lb) SpO2 99% BMI 27.44 kg/m?? A medical screening exam was performed. Physical Exam Constitutional: General: She is in acute distress. Appearance: She is well-developed and well-nourished. She is not diaphoretic. HENT: Nose: Nose normal. Eyes: Extraocular Movements: EOM normal. Conjunctiva/sclera: Conjunctivae normal. Cardiovascular: Rate and Rhythm: Normal rate and regular rhythm. Heart sounds: Normal heart sounds. Pulmonary: Effort: Pulmonary effort is normal. Breath sounds: Normal breath sounds. Abdominal: General: Bowel sounds are normal. Palpations: Abdomen is soft. Musculoskeletal: Cervical back: Normal range of motion. Skin: General: Skin is warm and dry. Neurological: Mental Status: She is alert and oriented to person, place, and time. An EKG was obtained and independently interpreted. Imaging obtained was reviewed and independently interpreted. Laboratory data was reviewed and independently interpreted. Procedures Procedures Cosigned by Malorie Mistry MD at 09/24/2022 17:00 EST Associated attestation - Malorie Mistry MD - 09/24/2022 1700 EST I performed a history and exam of Andie Lyman and discussed the case with the resident. I reviewedthis individual's note and I concur with the documented findings and plan of care. Andie comes in for intractable vomiting with upper abdominal pain. She does use cannabis and has hadsimilar visits in the past. Given her upper abdominal pain and her mild AST elevation she had an ultrasound to check for bilious origin to her pain. Her gallbladder was benign. She was signed our pending re-evaluation after symptomatic treatment. * Rehana Matson, RN - 09/21/2022 0926 EST Pt arrived via ems with retching. She reports not eating for 3 days. States she is having abdominalpain in the lower abdomin. She has been here severely times for the same. Has IUD. documented in this encounter Plan of Treatment Upcoming Encounters Date Type Department Care Team (Late st Contact Info) Description 01/28/2025 8:30 EDT Office Visit [facility] Rheumatology [address], [place] [phone] Dena Stephenson MD [address] [place] [phone] documented as of this encounter Procedures Procedure Name Priority Date/Time Associated Diagnosis Comments ECG REPORT - SCANNED 11/13/2022 7:48 EST US ABDOMEN LIMITED STAT 09/21/2022 12 :38 EST EKG 12-LEAD STAT 09/21/2022 9:48 EST HOLD SST Routine 09/21/2022 9:41 EST HOLD LAVENDER TOP Routine 09/21/2022 9:4 1 EST HOLD GREEN TOP Routine 09/21/2022 9:41 EST COMPLETE BLOOD COUNT AND DIFFERENTIAL STAT Add-on 09/21/2022 9:41 EST HEPATIC FUNCTION PANEL (ALB,ALK PHOS,ALT,AST,DBIL,TO T SHADY,TOT PROT) STAT Add-on 09/21/2022 9:41 EST BASIC METABOLIC PANEL (BMP) STAT Add-on 09/21/2022 9:41 EST documented in this encounter Results * ECG REPORT - SCANNED (11/13/2022 7:48 EST) 11/13/2022 7:48 EST us Scan 2 Resource Protection Specialist PROCEDURE/MINOR SURGICAL OR DERABLES Final Result * US ABDOMEN LIMITED (09/21/2022 12:38 EST) Anatomical Region Laterality Modality Abdomen, Body Ultrasound 09/21/2022 12:5 2 EST Impressions 09/21/2022 12:52 EST 1. No evidence of cholelithiasis 2. A 2.8 cm geographic region of increased echogenicity is seen in the left lobe the liver adjacent to the falciform ligament. This most likely represents a region of focal fat, but MR is recommended on a nonurgent outpatient basis for confirmation that this represents focal fat. Narrative 09/21/2022 12:52 EST US ABDOMEN LIMITED ??09/21/2022 12:05 PM SIGNS AND SYMPTOMS/COMMENTS: hyperemesis, pain in RUQ TECHNIQUE: Grayscale and Doppler ultrasound evaluation of the right upper quadrant of the abdomen was performed. Comparison: None Findings: Pancreas: The visible portions of the pancreatic head and proximal body are unremarkable. Liver: ?? Normal echogenicity. There is a geographic region of increased echogenicity within the left lobe of the liver, adjacent to the falciform ligament measuring approximately 2.8 cm. Bile Ducts: No ductal dilatation. Gallbladder: ??Normal. Right Kidney: The right kidney is normal in size and demonstrates no evidence of hydronephrosis or stones. Vessels: The visualized portions of the proximal abdominal aorta and IVC are unremarkable. Procedure Note Linsey Otero MD - 09/21/2022 US ABDOMEN LIMITED 09/21/2022 12:05 PM SIGNS AND SYMPTOMS/COMMENTS: hyperemesis, pain in RUQ TECHNIQUE: Grayscale and Doppler ultrasound evaluation of the right upperquadrant of the abdomen was performed. Comparison: None Findings: Pancreas: The visible portions of the pancreatic head and proximal bodyare unremarkable. Liver: Normal echogenicity. There is a geographic region of increasedechogenicity within the left lobe of the liver, adjacent to the falciformligament measuring approximately 2.8 cm. Bile Ducts: No ductal dilatation. Gallbladder: Normal. Right Kidney: The right kidney is normal in size and demonstrates noevidence of hydronephrosis or stones. Vessels: The visualized portions of the proximal abdominal aorta and IVCare unremarkable. IMPRESSION 1. No evidence of cholelithiasis 2. A 2.8 cm geographic region of increased echogenicity is seen in theleft lobe the liver adjacent to the falciform ligament. This most likelyrepresents a region of focal fat, but MR is recommended on a nonurgentoutpatient basis for confirmation that this represents focal fat. Fanny Michelle [facility] Final Result * EKG 12-LEAD (09/21/2022 9:48 EST) 09/21/2022 9:48 EST Narrative [facility] EKG - 11/13/2022 7:45 EST ?[facility] Emergency ? Test Date: ?2022-09-21 Pat Name: ? ANDIE LYMAN ? Department: ?? ED ? Room: ? GT35 Gender: ? Female ? Respiratory Technician: ?? [id number] : ?2000 ? Requested By: NANCIE FRANCES Order Number: [id number] ? Reading MD: ?? JOSE ALBERTO GOLDMANATING MD ? Measurements Intervals ?Commodore ? Rate: ? 74 ? P: ?47 AZ: ? 100 ?QRS: ?80 QRSD: ? 83 ? T: ?10 QT: ? 402 ? QTc: ?449 ? Interpretive Statements SINUS RHYTHM WITH SINUS ARRHYTHMIA WITH SHORT AZ INTERVAL Compared to ECG 09/19/2022 09:40:56 No significant changes I reviewed the tracing and have either agreed or edited the findings in this report. Electronically Signed On 11-13-2022 7:45:07 EST by JOSE ALBERTO DONALDSON MD. Procedure Note Jose Alberto Donaldson MD - 11/13/2022 [facility] Emergency Test Date: 2022-09-21 Pat Name: ANDIE LYMAN Department: ED Room: [facility] Gender: Female Respiratory Technician: [id number] : 2000 Requested By: NANCIE FRANCES Order Number: [id number] Reading MD: JOSE ALBERTO FORMAN Measurements Intervals Commodore Rate: 74 P: 47 AZ: 100 QRS: 80 QRSD: 83 T: 10 QT: 402 QTc: 449 Interpretive Statements SINUS RHYTHM WITH SINUS ARRHYTHMIA WITH SHORT AZ INTERVAL Compared to ECG 09/19/2022 09:40:56 No significant changes I reviewed the tracing and have either agreed or edited the findings inthis report. Electronically Signed On 11-13-2022 7:45:07 EST by CHELI LINCOLN. Desmond Verma MD CARDIAC ECG ORDERABLES Final Res ult [facility] EKG * (ABNORMAL) HEPATIC FUNCTION PANEL (ALB,ALK PHOS,ALT,AST,DBIL,TOT SHADY,TOT PROT) (09/21/2022 9:41 EST) Total Protein 9.2(H) 6.3 - 8.2 g/dL 09/21/2022 10:51 [facility] Comment:Slight hemolysis alec ntified, interpret with caution as results may be affected due to hemolysis. Albumin 5.2(H) 3.4 - 4.9 g/dL 09/21/2022 10:51 [facility] Comment:Slight hemolysis alec ntified, interpret with caution as results may be affected due to hemolysis. Bilirubin, Total 0.7 <1.4 mg/dL 09/21/20 10:51 [facility] Conjugated Bilirubin 0.0 <=0.3 mg/dL 09/21/2022 10:51 [facility] Unconjugated Bilirubin 0.3 <=1.1 mg/dL 09/21/2022 10:51 [facility] Alkaline Phosphatase 61 38 - 126 U/L 09/21/2022 10:51 [facility] Comment:Slight hemolysis alec ntified, hemolysis will decrease ALKP result. Interpret with caution as results may be affected due to hemolysis. ALT 37(H) <35 U/L 09/21/2022 10:51 [facility] AST 35 15 - 46 U/L 09/21/2022 10:51 [facility] Comment:Slight hemolysis alec ntified, interpret with caution as results may be affected due to hemolysis. Calculated Total Bilirubin 0.3 <1.4 mg/dL 09/21/2022 10:51 [facility] Blood VENOUS BLOOD / Unknown Venipuncture / Unknown 09/21/2022 9:41 EST 09/21/2022 9:46 EST Fanny Michelle CHEMISTRY & BLOOD GAS ORDERABLES Final Result Performing Organization Address City/State/[facility] Co de Phone Number [facility] [address] [place] [address] * (ABNORMAL) BASIC METABOLIC PANEL (BMP) (09/21/2022 9:41 EST) Sodium 140 136 - 145 mmol/L 09/21/2022 10:21 [facility] Potassium 3.7 3.5 - 5.0 mmol/L 09/21/2022 10:21 [facility] Comment:Slight hemolysis alec ntified, interpret with caution as hemolysis will elevate potassium result. Chloride 102 96 - 110 mmol/L 09/21/2022 10:21 [facility] CO2 Total 14(L) 22 - 32 mmol/L 09/21/2022 10:21 [facility] Anion Gap 24(H) 5 - 14 09/21/2022 10:21 [facility] Glucose 124(H) 70 - 100 mg/dL 09/21/2022 10:21 [facility] Calcium 10.2 8.5 - 10.5 mg/dL 09/21/2022 10:21 [facility] BUN 9(L) 10 - 26 mg/dL 09/21/2022 10:21 [facility] Comment: Slight hemolysis identified, interpret with caution as results may be affected due to hemolysis. Creatinine 0.62 0.52 - 1.04 mg/dL 09/21/2022 10:21 [facility] eGFR 129 >60 mL/min/1.7 3m2 09/21/2022 10:21 [facility] Blood VENOUS BLOOD / Unknown Venipuncture / Unknown 09/21/2022 9:41 EST 09/21/2022 9:46 EST us Desmond Verma MD CHEMISTRY & BLOOD GAS ORDERABLES Final Result Performing Organization Address City/State/[facility] Co de Phone Number [facility] [address] [place] [address] * (ABNORMAL) COMPLETE BLOOD COUNT AND DIFFERENTIAL (09/21/2022 9:41 EST) WBC 11.40 4.00 - 12.40 K/cmm 09/21/2022 10:05 [facility] RBC 5.08(H) 3.86 - 5.04 M/cmm 09/21/2022 10:05 [facility] Hemoglobin 15.3(H) 11.6 - 15.2 gm/dL 09/21/2022 10:05 [facility] HCT 44.0 34.9 - 44.4 % 09/21/2022 10:05 [facility] MCV 87 81 - 98 fl 09/21/2022 10:05 [facility] MCH 30.1 26.7 - 33.3 pg 09/21/2022 10:05 [facility] MCHC 34.8 32.1 - 35.9 gm/dL 09/21/2022 10:05 [facility] RDW-CV 13.0 <14.7 % 09/21/2022 10:05 [facility] RDW-SD 40.3 <50.4 fl 09/21/2022 10:05 [facility] PLT 380(H) 141 - 377 K/cmm 09/21/2022 10:05 [facility] MPV 10.9 9.5 - 12.7 fl 09/21/2022 10:05 [facility] % Neutrophils 62.2 % 09/21/2022 10:05 [facility] % Lymphocytes 28.2 % 09/21/2022 10:05 [facility] % Monocytes 7.1 % 09/21/2022 10:05 [facility] % Eosinophils 0.9 % 09/21/2022 10:05 [facility] % Basophils 0.9 % 09/21/2022 10:05 [facility] % Immature Grans 0.7 % 09/21/20 10:05 [facility] Absolute Neutrophils 7.10 2.20 - 8.85 K/cmm 09/21/2022 10:05 [facility] Absolute Lymphocytes 3.21 1.09 - 3.30 K/cmm 09/21/2022 10:05 [facility] Absolute Monocytes 0.81(H) 0.10 - 0.80 K/cmm 09/21/2022 10:05 [facility] Absolute Eosinophils 0.10 0.03 - 0.61 K/cmm 09/21/2022 10:05 [facility] ABS Basophils 0.10 0.01 - 0.11 K/cmm 09/21/2022 10:05 [facility] Absolute Immature Grans 0.08(H) 0.00 - 0.06 K/cmm 09/21/2022 10:05 [facility] Type of Differential: Auto 09/21/2022 10:05 [facility] Blood VENOUS BLOOD / Unknown Venipuncture / Unknown 09/21/2022 9:41 EST 09/21/2022 9:46 EST us Desmond Verma MD PACKAGES & DNA PROBE ORDERABLES Final Result [facility] [address] [place] [address] * HOLD LAVENDER TOP (09/21/2022 9:41 EST) Hold Hold 09/21/2022 11:01 EST [facility] Blood VENOUS BLOOD / Unknown Venipuncture / Unknown 09/21/2022 9:41 EST 09/21/2022 9:46 EST us Desmond Verma MD LAB INFO SERVICE AND SUPPORT & P MAYA RESULT Final Result [facility] [address] [place] [address] * HOLD GREEN TOP (09/21/2022 9:41 EST) Hold Hold 09/21/2022 11:01 EST [facility] Blood VENOUS BLOOD / Unknown Venipuncture / Unknown 09/21/2022 9:41 EST 09/21/2022 9:46 EST us Desmond Verma MD LAB INFO SERVICE AND SUPPORT & P MAYA RESULT Final Result Performing Organization Address City/[facility]/ZIP Co de Phone Number [facility] [address] [place] [address] * HOLD [facility] (09/21/2022 9:41 EST) Hold Hold 09/21/2022 11:01 EST [facility] Blood VENOUS BLOOD / Unknown Venipuncture / Unknown 09/21/2022 9:41 EST 09/21/2022 9:46 EST us Desmond Verma MD LAB INFO SERVICE AND SUPPORT & P MAYA RESULT Final Result Performing Organization Address City/[facility] Co de Phone Number [facility] [address] [place] [address] documented in this encounter Visit Diagnoses Diagnosis Nausea- Primary Nausea alone documented in this encounter Administered Medications Inactive Administered Medications - up to 3 most recent administrations Medication Order MAR Action Action Date Dose Rate Site droperidoL (INAPSINE) injection 1.25 mg 1.25 mg, intravenous, NOW X1, 1 dose, On Sat09/21/22 at 0945, STAT Given 09/21/2022 9:53 EST 1.25 mg haloperidol lactate (HALDOL) injection 2 mg 2 mg, intravenous, NOW X1, 1 dose, On Sat09/21/22 at 1215, STAT Given 09/21/2022 12:10 EST 2 mg lactated ringers BOLUS 1,000 mL 1,000 mL, intravenous, NOW X1, 1 dose, On Sat09/21/22 at 1000, STAT New Bag 09/21/2022 9:55 EST 1,000 mL LORazepam (ATIVAN) injection 1 mg 1 mg, intravenous, NOW X1, 1 dose, On Sat09/21/22 at 1215, STAT Given 09/21/2022 12:10 EST 1 mg ondansetron (ZOFRAN-ODT) disintegrating tablet 4 mg 4 mg, oral, NOW X1, 1 dose, On Sat09/21/22 at 1200, STAT Given 09/21/2022 11:58 EST 4 mg documented in this encounter Active and Recently Administered Medications Times are shown in EST. Scheduled Medication Order 09/19/2022 09/20/2022 09/21/2022 droperidoL (INAPSINE) injection 1.25 mg (COMPLETED) 1.25 mg, intravenous, NOW X1, 1 dose, On Sat09/21/22 at 0945, STAT 0953 (Given - Provid er: Rehana Matson RN) haloperidol lactate (HALDOL) injection 2 mg (COMPLETED) 2 mg, intravenous, NOW X1, 1 dose, On Sat09/21/22 at 1215, STAT 1210 (Given - Provid er: Rehana Matson RN) lactated ringers BOLUS 1,000 mL (COMPLETED) 1,000 mL, intravenous, NOW X1, 1 dose, On Sat09/21/22 at 1000, STAT 0955 (New Bag - Prov ider: Rehana Matson RN)1102 (Completed - Provider: Rehana Matson RN) LORazepam (ATIVAN) injection 1 mg (COMPLETED) 1 mg, intravenous, NOW X1, 1 dose, On Sat09/21/22 at 1215, STAT 1210 (Given - Provid er: Rehana Matson RN) ondansetron (ZOFRAN-ODT) disintegrating tablet 4 mg (COMPLETED) 4 mg, oral, NOW X1, 1 dose, On Sat09/21/22 at 1200, STAT 1158 (Given - Provid er: Rehana Matson RN) documented in this encounter Orders Medications Ordered That Speedy ht Not Have Been Administered Count Last Ordered Date First Ordered Date droperidoL (INAPSINE) injection 1.25 mg 1 1 11/21/2021 haloperidoL (HALDOL) tablet 2 mg 1 09/21/20 documented in this encounter Care Teams Dry Chain Puller Relationship Specialty Start Date End Date Grace Raya, CAR RACER [address] [place] [address] PCP - General 05/19/20 documented as of this encounter
--- OUTSIDE RECORDS SUMMARY | 2024-10-26 18:53 | XMS_ITS | Encounter Summary ---
Author Organization [facility] Address [address] [place] [address] Care Team Providers Care Die Keeper Name Role Phone Grace Raya SYSTEM TRAINER Primary Care Provider [phone] Reason for Visit * Reason Onset Date Comments Prior Auth, Medication 09/18/2024 Humira Encounter Details Date Type Department Care Team ([facility] Contact Info) Description 09/18/2024 Telephone [facility] Rheumatology [address] [place] [address] Dena Stephenson MD [address] [facility] [address] [place] [address] Prior Auth, Medication (Humira) Social History Tobacco Use Types Packs/Day Years [...] 09/05/2020 15:32 EDT documented in this encounter Ordered Prescriptions Prescription Sig Dispense Quantity Refills Last Filled Start Date End Date adalimumab (HUMIRA,CF, PEN) 40 mg/0.4 mL penIndications:Seronegat eron spondyloarthropathy Inject 0.4 mL into the skin every 14 days. 2 Each 5 09/21/2024 documented in this encounter Progress Notes * Larisa Reza RPH - 09/18/2024 1356 EST Okay to submit for Medication: Humira (adalimumab) 40mg/0.4mL pen 40 mg subcutaneous every 14 days Diagnosis: Seronegative spondyloarthropathy Labs: HepB negative, TB negative Hep B Screening: Lab Results Component Value Date HBSAG Negative 09/09/2024 Lab Results Component Value Date Hep B Surface Ab, Qualitative Negative 05/12/2020 Lab Results Component Value Date Hepatitis B Core Ab, Total Negative 05/12/2020 TB Screening: Lab Results Component Value Date Quantiferon Interpretation Negative 09/09/2024 Larisa Reza PharmD OP Ambulatory Pharmacist Clinician Penny 09/18/2024 documented in this encounter Miscellaneous Notes * Telephone Encounter - Claudia Diaz - 09/18/2024 1056 EST Prior Authorization Approval Medication: Humira 40 mg every 14 days Insurance Name:VTM Insurance Type: [place] Medicaid Approval Dates: 09/18/2024-12/19/2024 Authorization Number: [id number] Required Pharmacy: No requirement [facility] able to fill?: YES Route to [facility] (if applicable): Yes NS Additional Info/Other Notes: Approval uploaded in scans. Prior Authorization Submission Process - Routine New Medication: Humira 40mg every 14 days Insurance: VTM Insurance Type: [place] Medicaid [place] Request Received: 09/11/2024 PA Submission Date: 09/11/2024 Faxed: [phone] Fax @[phone] Notes: - Submitted by: AMBER Phone: [phone] documented in this encounter Plan of Treatment Upcoming Encounters Date Type Department Care Team (Late st Contact Info) Description 01/28/2025 8:30 EDT Office Visit [facility] Rheumatology [address] [place] [phone] Dena Stephenson MD [address] [facility] [address] [place] [phone] documented as of this encounter Visit Diagnoses Diagnosis Seronegative spondyloarthropathy- Primary Spondylosis of unspecified site without mention of myelopathy documented in this encounter Care Teams Die Keeper Relationship Specialty Start Date End Date Grace Raya NP [address] [place] [address] PCP - General 05/19/20 documented as of this encounter
--- OUTSIDE RECORDS SUMMARY | 2024-10-26 18:53 | XMS_ITS | Encounter Summary ---
Author Organization [facility] Address [address] [place] [address] Care Team Providers Care Forklift Driver Name Role Phone Grace Raya GLASS INSTALLER TECHNICIAN Primary Care Provider [phone] Encounter Details Date Type Department Care Team ([facility] Contact Info) Description 08/17/2023 11:30 EDT Phlebotomy Only [facility] ED Center 2 Phlebotomy [address] [place] [address] Lunch Counter Manager, Acc Phlebotomy Chronic right-sided low back pain with right-sided sciatica Social History Tobacco Use Types Packs/Day Years [...] Encounter Note - Dena Stephenson MD - 08/17/2023 1130 EDT I've reached out to Iris a few times regarding need to schedule MRI so that we may continue the work up for seroneg spondyloarthropathy and MRI not done as of 01/2024. documented in this encounter Plan of Treatment Upcoming Encounters Date Type Department Care Team (Late st Contact Info) Description 01/28/2025 8:[address] [facility] [place] [address] [place] [address] Dena Stephenson MD [address] [place] [address] [address] [place] [phone] documented as of this encounter Procedures Procedure Name Priority Date/Time Associated Diagnosis Comments HLA B27 SCREEN, DNA Routine 08/17/2023 1 1:21 EDT Chronic right-sided low back pain with right-sided sciatica documented in this encounter Results * HLA B27 SCREEN, DNA (08/17/2023 11:21 EDT) HLAB-B27 Result Positive Not Applicable 08/22/2023 15:12 EDT [facility] [employer] Interpretation SEE NOTE 08/22/2023 15:12 EDT [facility] Comment: HLA-B27 antigen was detected. Approximately 8% [...] etc. ADDITIONAL INFORMATION Method: Flow Cytometry CLIA: [id number] ??CLIA Mother Baby Rn: ABDULKADIR MCPHERSON MD,PhD Test Performed by: [address] [address] Mother Baby Rn: Abdulkadir Mcpherson M.D. Ph.D.; CLIA# [id number] Blood VENOUS BLOOD / Unknown Venipuncture / Unknown 08/17/2023 11:21 EDT 08/17/2023 11:40 EDT us Dena Stephenson MD TISSUE TYPING ORDERABLES Final Result [address] [address] documented in this encounter Visit Diagnoses Diagnosis Chronic right-sided low back pain with right-sided sciatica documented in this encounter Care Teams Forklift Driver Relationship Specialty Start Date End Date Grace Raya, BR[address] [place] [address] PCP - General 05/19/20 documented as of this encounter
--- OUTSIDE RECORDS SUMMARY | 2024-10-26 18:53 | XMS_ITS | Clinical Summary ---
Author Organization [facility] Address [address] [place] [address] Care Team Providers Care Offbearer Sewer Pipe Name Role Phone Elver Grace Still CASH OFFICE WORKER Primary Care Provider [phone] Allergies Active Allergy Reactions Criticality Noted Date Comments Fluconazole Anaphylaxis High 07/01/2022 Prednisone Hives,Palpitations 02/07/2020 Medications citalopram (CELEXA) 20 mg tablet TAKE 1.5 TABLETS BY MOUTH EVERY DAY 020 Active albuterol 90 mcg/actuation inhaler Active rizatriptan [...] topically 2 times daily. 50 mL 2 024 Active UNKNOWN TO PATIENT control Active gabapentin (NEURONTIN) 300 mg capsule Take 1 Capsule by mouth 3 times daily. 90 Capsule 1 024 Active adalimumab (HUMIRA,CF, PEN) 40 mg/0.4 mL penIndications:Seroneg ative spondyloarthropathy Inject 0.4 mL into the skin every 14 days. 2 Each 5 Active cyclobenzaprine (FLEXERIL) 5 mg tablet Take 1 Tablet by mouth at bedtime. 30 Tablet Active cyclobenzaprine (FLEXERIL) 5 mg tablet Take 1 Tablet by mouth at bedtime. 30 Tablet 024 2023 Disconti nued(Reo rder) Active Problems Patient Care Coordination No te Formatting of this note migh t be different from the original. 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 Bacterial vaginosis [...] back pain with right-slade ed sciatica 05/19/2020 Encounters Date Type Department Care Team Description 10/15/2024 Specialty Pharmacy [facility] [address] [place] [address] Jese Becker [facility] Initial Clinical Follow-up (by 6 weeks) for Spondyloarthritis, Refill Coordination Outreach for Spondyloarthritis 10/14/2024 Refill [facility] Rheumatology [address] [place] [address] Dena Stephenson MD Medications Refill 10/11/2024 Refill [facility] Rheumatology [address] [place] [address] Dena Stephenson MD Medications Refill 09/22/2024 Refill [facility] Rheumatology [address] [place], [place] [address] Dena Stephenson MD Medications Refill 09/22/2024 Specialty Pharmacy [facility] [address] [place], [place] [phone] Jese Becker, [facility] Set up initial fill for Spondyloarthritis, Patient Education for Spondyloarthritis, Prospective Review for Spondyloarthritis 09/18/2024 Telephone [facility] Rheumatology [address] [place], [place] [address] Dena Stephenson MD Prior Auth, Medication (Humira) 09/09/2024 13:10 EDT Phlebotomy Only [facility] - [facility] [address] [place] [address] Need for hepatitis B screening test; Need for hepatitis C screening test; Screening for tuberculosis 09/09/2024 Telephone [facility] Rheumatology [address] [place], [place] [address] Dena Stephenson MD Appointment Related from Last 3 Months Immunizations Name Administration Dates Next Due Covid-19 [...] IM 07/18/2017 Tdap Vaccine =>7YO IM 07/12/2011 Medical History Medical History Date Comments Alopecia areata Social History Tobacco Use Types Packs/Day Years [...] 8:04 EDT Sexual Orientation Not on file Obstetrics History Para Term AB IAB SAB Ectopic Multiple Livin g Live Births 0 Last Filed Vital Signs Vital Sign Reading [...] Body Mass Index 30.18 07/01/2022 2254 EDT Plan of Treatment Upcoming Encounters Date Type Department Care Team (Late st Contact Info) Description 01/28/2025 8:30 EDT Office Visit [facility] Rheumatology [address] [place] [address] Dena Stephenson MD [address] [place] [address] [address] [place] [address] Health Maintenance Due Date Last Done Comments Asthma Action Plan 2000 Lung Function Test (Spirometry) 2000 COVID-19 Vaccine (2023-2 5 season) 2024 12/08/2020, 11/09/2020 Hepatitis B Vaccine Completed 08/15/2010, 02/15/2010, 11/01/2009 Hepatitis C Screen Completed 09/09/2024 Procedures Procedure Name Priority Date/Time Associated Diagnosis [...] ORDERAB LES Final Result Performing Organization Address City/[facility]/ZIP Co de Phone Number [facility] [address] [place] [address] * QUANTIFERON TB2 (PERFORMABLE) (09/09/2024 13:08 EDT) Blood VENOUS BLOOD / Unknown Venipuncture / Unknown 09/09/2024 13:08 EDT 09/09/2024 13:10 EDT Dena Stephenson MD IMMUNOLOGY AND SEROLOGY ORDERAB LES Final Result Performing Organization Address City/[facility]/ZIP Co de Phone Number [facility] [address] [place] [address] * QUANTIFERON TB1 (PERFORMABLE) (09/09/2024 13:08 EDT) Blood VENOUS BLOOD / Unknown Venipuncture / Unknown 09/09/2024 13:08 EDT 09/09/2024 13:10 EDT Dena Stephenson MD IMMUNOLOGY AND SEROLOGY ORDERAB LES Final Result Performing Organization Address City/[facility]/ZIP Co de Phone Number [facility] [address] [place], [place] [phone] * QUANTIFERON NIL (PERFORMABLE) (09/09/2024 13:08 EDT) Blood VENOUS BLOOD / Unknown Venipuncture / Unknown 09/09/2024 13:08 EDT 09/09/2024 13:10 EDT us Dena Stephenson MD IMMUNOLOGY AND SEROLOGY ORDERAB LES Final Result Performing Organization Address [facility] Co de Phone Number [facility] [address] [place], [place] [phone] * QUANTIFERON INTERPRETATION (PERFORMABLE) (09/09/2024 13:08 EDT) Pathologist [facility] Quantiferon Interpretation Negative Negative 09/10/2024 13:00 EDT [facility] Comment:No interferon-gamma response to M. tuberculosis antigens was detected. ??Infection with M. tuberculosis is unlikely. A single negative result does not exclude infection with M. tuberculosis. ??In patients at high risk for M. tuberculosis infection, a second test should be considered. TB1 Ag minus Nil 0.00 IU/mL 09/10/20 24 13:00 EDT [facility] TB2 Ag minus Nil 0.00 IU/mL 09/10/20 13:00 EDT [facility] Blood VENOUS BLOOD / Unknown Venipuncture / Unknown 09/09/2024 13:08 EDT 09/10/2024 12:47 EDT Dena Stephenson MD IMMUNOLOGY AND SEROLOGY ORDERAB LES Final Result Performing Organization Address City/[facility] Co de Phone Number [facility] [address] [place], [place] [phone] * HEPATITIS C AB W REFLEX TO HCV RNA BY PCR (09/09/2024 13:08 EDT) Hep C Antibody Negative Negative 09/10/2024 15:36 EDT [facility] Blood VENOUS BLOOD / Unknown Venipuncture / Unknown 09/09/2024 13:08 EDT 09/09/2024 13:10 EDT us Dena Stephenson MD CHEMISTRY & BLOOD GAS ORDERABLE S Final Result [facility] [address] [place], [place] [phone] * HEPATITIS B SURFACE ANTIGEN (09/09/2024 13:08 EDT) Hep B Surface Ag Negative Negative 09/10/2024 14:42 EDT [facility] Blood VENOUS BLOOD / Unknown Venipuncture / Unknown 09/09/2024 13:08 EDT 09/09/2024 13:10 EDT us Dena Stephenson MD CHEMISTRY & BLOOD GAS ORDERABLE S Final Result [facility] [address] [place], [place] [phone] from Last 3 Months Insurance MEDICAID [facility] MEDICAID [place] Care Teams Offbearer Sewer Pipe Relationship Specialty Start Date End Date Grace Raya, [address] [place] [address] PCP - General 05/19/20
--- OUTSIDE RECORDS SUMMARY | 2024-10-26 18:53 | XMS_ITS | Encounter Summary ---
Author Organization [facility] Address [address] [place] [address] Care Team Providers Care Wall Scraper Name Role Phone Grace Raya DIESEL ENGINE MECHANIC Primary Care Provider [phone] Reason for Referral * Consult (Routine/Next Available) - Authorized Specialty Diagnoses / Procedures Referred By Navdeep olvera Referred To Contact Pharmacy Diagnoses Seronegative spondyloarthropathy Dena Stephenson MD [address] [facility] [address] [place] [address] Phone: tel: fax: [facility] [address] [place] [address] Phone: tel: fax: Referral ID Status Reason Start Date Expiration Date Visits Requested Visits Authorized [id number] Authorized Specialty Services Required 09/11/2024 1 1 Question Answer PA Type: New Medication to be Prior Authorized: Humira 40mg SQ every other week Comments The purpose of this request is to inform precertification staff that the requested service needs to be reviewed for prior-authorization. Reason for Visit * Reason Onset Date Comments Appointment Related 09/09/2024 Encounter Details Date Type Department Care Team ([facility] Contact Info) Description 09/09/2024 Telephone [facility] Rheumatology [address] [place] [address] Dena Stephenson MD [address] [place] [address] [address] [place] [phone] Appointment Related Social History Tobacco Use Types Packs/Day Years [...] encounter Miscellaneous Notes * Telephone Encounter - Kathi Weiner RN - 09/11/2024 1550 EDT Prior auth ordered for Humira. Labs are negative. Message left for patient that we are going to seeif her insurance will cover the Humira. We will be in touch with her regarding next steps. * Telephone Encounter - Kathi Weiner RN - 09/11/2024 1544 EDT Images from the original note were not included. Dena Stephenson MD P [facility] Rheumatology Nurse Yes, thank you. Let's proceed with prior auth for adalimumab (Humira) for seronegative spondyloarthritis, failed trials of NSAIDs. (Sacroiliitis on MR, inflammatory back pain, +HLA-B27) Patient will need teaching if approved. Thanks. * Telephone Encounter - Rosalee Mello RN - 09/11/2024 0944 EDT 09/09/2024 labs resulted. Quantiferon=Neg, hepatitis C AB=neg, hepatitis B surface antigen=Neg. To Dr Stephenson for review. Okay to continue with humira authorization? Please provide medication details. * Telephone Encounter - Zaina Antonio - 09/09/2024 1435 EDT Iris called to reschedule appt that she cancelled in August. She stated that she had her blood work done today 09/09 and is still interested in possibly starting Humira. Scheduled first available appt on January 28/2025, added to cancellation list. Please review to get in sooner if needed. documented in this encounter Plan of Treatment Upcoming Encounters Date Type Department Care Team (Late st Contact Info) Description 01/28/2025 8:30 EDT Office Visit [facility] Rheumatology [address] [place] [address] Dena Stephenson MD [address] [facility] [address] [place] [address] Scheduled Referrals Name Type Priority Associated Diagnoses Orde r Schedule AMB CONS/FOLLOW UP SPECIALTY PHARMACY Outpatient Referral Routine/Next Available Seronegative spondyloarthropathy Expected: 09/18/2024 (Approximate), Expires: 09/11/2025 documented as of this encounter Visit Diagnoses Diagnosis Seronegative spondyloarthropathy- Primary Spondylosis of unspecified site without mention of myelopathy documented in this encounter Care Teams Wall Scraper Relationship Specialty Start Date End Date Grace Raya, DIESEL ENGINE MECHANIC [address] [place] [address] PCP - General 05/19/20 documented as of this encounter
--- OUTSIDE RECORDS SUMMARY | 2024-10-26 18:53 | XMS_ITS | Encounter Summary ---
Author Organization [facility] Address [address] [place] [address] Care Team Providers Care Medicaid Specialist Name Role Phone Grace Raya IMPORT COORDINATOR Primary Care Provider [phone] Reason for Visit * Reason Onset Date Comments Medications Refill 10/11/2024 Encounter Details Date Type Department Care Team ([facility] Contact Info) Description 10/11/2024 Refill [facility] Rheumatology [address] [place], [place] [phone] Dena Stephenson MD [address] [facility] [address] [place] [address] Medications Refill Social History Tobacco [...] Refills Last Filled Start Date End Date cyclobenzaprine (FLEXERIL) 5 mg tablet Take 1 Tablet by mouth at bedtime. 30 Tablet 10/12/2024 documented in this encounter Plan of Treatment Upcoming Encounters Date Type Department Care Team (Late st Contact Info) Description 01/28/2025 8:30 EDT Office Visit [facility] Rheumatology [address] [place] [phone] Dena Stephenson MD [address] [place] [address] [place] [address] documented as of this encounter Visit Diagnoses Diagnosis Seronegative spondyloarthropathy- Primary Spondylosis of unspecified site without mention of myelopathy documented in this encounter Discontinued Medications Medication Sig Discontinue Reason Start Date End Da te cyclobenzaprine (FLEXERIL) 5 mg tablet Take 1 Tablet by mouth at bedtime. Reorder 04/30/2024 10/11/2024 documented as of this encounter Care Teams Medicaid Specialist Relationship Specialty Start Date End Date Grace Raya NP [address] [place] [address] PCP - General 05/19/20 documented as of this encounter
--- OUTSIDE RECORDS SUMMARY | 2024-10-26 18:53 | XMS_ITS | Encounter Summary ---
Author Organization [facility] Address [address] [place] [address] Care Team Providers Care Basin Finish Operator Tig Welder Name Role Phone Grace Raya TRAINING SYSTEMS OFFICER Primary Care Provider [phone] Encounter Details Date Type Department Care Team (Late Contact Info) Description 01/02/2023 Transcribe Orders OUTSIDE PROVIDER Grace Raya, TRAINING SYSTEMS OFFICER [address] [place] [phone] Abdominal pain, unspecified abdominal location (Primary Dx) Social History Tobacco Use Types Packs/Day Years [...] Info) Description 01/28/2025 8:30 EDT Office Visit [facility] Rheumatology [address] [place] [address] Dena Stephenson MD [address] [facility] [address] [place] [phone] Scheduled Orders Name Type Priority Associated Diagnoses Orde r Schedule H. PYLORI ANTIGEN Microbiology Routine Abdominal pain, unspecified abdominal location Expected: 01/02/2023 (Approximate), Expires: 04/01/2023 documented as of this encounter Visit Diagnoses Diagnosis Abdominal pain, unspecified abdominal location- Primary documented in this encounter Care Teams Basin Finish Operator Tig Welder Relationship Specialty Start Date End Date Grace Raya NP [address] [place] [address] PCP - General 05/19/20 documented as of this encounter
--- OUTSIDE RECORDS SUMMARY | 2024-10-26 18:53 | XMS_ITS | Encounter Summary ---
Author Organization [facility] Address [address] [place] [address] Care Team Providers Care Cupola Liner Helper Name Role Phone Grace Raya CASH MANAGEMENT OFFICER Primary Care Provider [phone] Encounter Details Date Type Department Care Team (Latest Contact Info) Description 10/15/2024 Specialty Pharmacy [facility] [address] [place], [place] [phone] Jese Becker RPH Initial Clinical Follow-up (by 6 weeks) for Spondyloarthritis, Refill Coordination Outreach for Spondyloarthritis Social History Tobacco Use Types [...] documented in this encounter Progress Notes * Vero Angelo RPH - 10/15/2024 1642 EST Called patient for 6 week Rust follow-up. Left a message asking for a callback. Method of Communication: telephone, amost Vero Angelo PharmD, BCPS Pharmacist Ambulatory Clinician 10/19/2024 documented in this encounter Plan of Treatment Upcoming Encounters Date Type Department Care Team (Late st Contact Info) Description 01/28/2025 8:30 EDT Office Visit [facility] Rheumatology [address] [place], [place] [address] Dena Stephenson MD 130 [facility] [address] [place] [address] documented as of this encounter Visit Diagnoses Not on filedocumented in this encounter Care Teams Cupola Liner Helper Relationship Specialty Start Date End Date Grace Raya NP [address] [place] [address] PCP - General 05/19/20 documented as of this encounter
--- OUTSIDE RECORDS SUMMARY | 2024-10-26 18:53 | XMS_ITS | Encounter Summary ---
Author Organization [facility] Address [address] [place] [address] Care Team Providers Care Production Corrugator Name Role Phone Grace Raya BOTTOM BRUSHER Primary Care Provider [phone] Encounter Details Date Type Department Care Team ([facility] Contact Info) Description 11/29/[address] [facility] Radiology - [facility] [address] [place] [address] Alex Parrish MD [address] [place] [address] Social History Tobacco Use Types [...] Info) Description 01/28/2025 8:30 EDT Office Visit [facility] Rheumatology [address] [place] [id number] Dena Stephenson MD [address] [facility] [address] [place] [phone] documented as of this encounter Visit Diagnoses Not on filedocumented in this encounter Care Teams Production Corrugator Relationship Specialty Start Date End Date Grace Raya NP [address] [place] [address] PCP - General 05/19/20 documented as of this encounter
--- OUTSIDE RECORDS SUMMARY | 2024-10-26 18:53 | XMS_ITS | Encounter Summary ---
Author Organization [facility] Address [address] [place] [address] Care Team Providers Care Zoo Keeper Name Role Phone Elver Grace Tessy PROSTHETIC ASSISTANT Primary Care Provider [phone] Reason for Visit * Reason Comments Hypermobility Follow-up Continuous right nec k pain, needs to crack neck frequently Encounter Details Date Type Department Care Team (Latest Contact Info) Description 04/21/2024 11:30 EDT Telemedicine [facility] Rheumatology [address] [place] [address] Dena Stephenson MD [address] [address] [place] [address] Seronegative spondyloarthropathy (Primary Dx); Other eczema; Need for hepatitis B screening test; Need for hepatitis C screening test; Screening for tuberculosis; Psoriasis Social History Tobacco Use Types Packs/Day Years [...] Sign Reading Time Taken Comments Blood Pressure - - Pulse - - Temperature - - Respiratory Rate - - Oxygen Saturation - - Inhaled Oxygen Concentration - - Weight 74.8 kg (165 lb) 04/21/2024 1051 EDT Height - - Body Mass Index 30.18 07/01/2022 2254 EDT documented in this encounter [...] * Patient Instructions* Dena Stephenson MD - 04/21/2024 11:30 EDT Check hepatitis B, C and TB screening labs Clobetasol solution for scalp and may use just inside ear canals Will pursue Humira pending screening labs documented in this encounter Ordered Prescriptions Prescription Sig Dispense Quantity Refills Last Filled Start Date End Date clobetasoL (TEMOVATE) 0.05 % external solutionIndication s:Psoriasis Apply topically 2 times daily. 50 mL 2 04/21/2024 documented in this encounter Progress Notes * Dena Stephenson MD - 04/21/2024 1130 EDT [facility] Video Visit Today's visit was provided through [...] or auxiliary staff: yes. Subjective: Chief Complaint(s): Hypermobility and Follow-up (Continuous right neck pain, needs to crack neck frequently) HPI: Chronic right-sided low back pain with radicular features. Not classically responsive to NSAIDS. Equivocal inflammatory features. Hypermobility. Past xrays of the lumbar spine read as unremarkable interms of the spine itself and question of sclerotic changes involving the LEFT SI joint -- Iris is symptomatic on the right, moreso than left. Iris has a h/o vitiligo, alopecia areata, and eczema (possibly psoriasis; father has psoriasis) -- these autoimmune conditions are commonly associated. MRI in 2019 with asymmetric sacroiliitis on the right, predominantly iliac side of SI joint. EL 160, homogeneous pattern; specific antibodies for SLE, Sjogren's, etc are negative. No response to right SIjoint injection in mid-2019, done at [facility] (in fact, steroid injection increased pain). Repeat MRI pelvis 04/13/24, indicated prior sacroiliitis, osseous erosions and a few foci of edema. HLA-B27 positive. INTERVAL HISTORY: Iris returns for follow up to review recent MRI results. Xrays of the SI joints from 08/02/23, were read as having mild degenerative changes and question of mild erosions of both joints. In my review,the erosions are not a definitive finding. MRI pelvis was done last week, and these indicated: * Bilateral SI joint changes as described above suggestive of prior sacroiliitis. * There are few foci of edema as described above which could suggest an active component, more conspicuous on the right. Today, Liudmila reports she has been more active, and has notices a reduction in lower back pain; stillhaving some hip pain (lateral hip) and pain in the butt cheek but not to the point of being immobile. Has reduced work to part-time and finds this has been helpful in terms of managing pain. Tryingto stay active through flare ups. Feels pretty stiff in the morning. Sometimes gets better when she gets going, sometimes not. At times wakes up at 1-3 am due back pain. Having neck pain, right side -- tightness feeling; can cause cramp when moves shoulder. Liudmila is taking gabapentin, when working due to radiating pain in her legs after being on her feet through a shift. Has a h/o stomach ulcer, so had to stop meloxicam/NSAIDs, which had questionable benefit. I have reviewed patient's tobacco history: reports that she has never smoked. She uses smokeless tobacco. I have reviewed current problem list and current medications. ROS: Biologic father with psoriasis. Liudmila says she was diagnosed with eczema, but thinks she may have psoriasis. Says she has an area of scaling and chunks of flakes/skin come off, behind the right ear,as well as in the left ear and labia area. Doesn't like to use topical triamcinolone due to greasiness and plugs her ear so difficult to hear. Objective: Examination: Home Vitals: Wt 74.8 kg (165 lb) BMI 30.18 kg/m?? Pertinent exam findings: appears well, non-labored breathing, mood and affect appropriate, and behind right ear are areas of erythematous plaques; also erythema in left ear canal Data reviewed with patient: most recent labs reviewed: see HPI and most recent imaging reviewed: see HPI No visits with results within 1 Month(s) from this visit. Latest known visit with results is: Phlebotomy Only on 08/17/2023 Component Date Value Ref Range Status HLAB-B27 Result 08/17/2023 Positive Not Applicable Final Interpretation 08/17/2023 SEE NOTE Final HLA-B27 antigen was detected. Approximately 8% of [...] etc. ADDITIONAL INFORMATION Method: Flow Cytometry CLIA: [id number] CLIA Ic Design Engineer: ABDULKADIR MCPHERSON MD,PhD Test Performed by: [place] [address] Ic Design Engineer: Abdulkadir Mcpherson M.D. Ph.D.; CLIA# [id number] Assessment & Plan: 1. Seronegative spondyloarthropathy 07/30/2023 11:31 08/14/2023 14:01 08/14/2023 14:39 RAPID3 SCORES AND INTERPRETATION Functional Status 4 2 3.3 Pain Tolerance 8.5 4 4 Global Estimate 8.5 4 4 RAPID3 21 10 11.3 Interpretation High Moderate Moderate History of mostly low back pain, right more than left, with equivocal inflammatory symptoms and equivocal response to NSAIDs; no response to steroid SI joint injection. Recent XR SI joints indicatingmild erosions and more pronounced finding left side. Repeat MRI 04/13/24, with findings of erosions, and focal areas of edema. HLA-B27 positive. Also, probably new diagnosis of psoriasis. All of these features support diagnosis of seroneg spondyloarthropathy. Discussed 6 month trial of biologic, likely adalimumab (Humira). Will screen for hep B (Iris is vaccinated), as well as repeat TB testing (last done in 2021, and negative, but has since traveled to [facility]). Once screening tests are done, and if negative, will request prior auth for Humira. 2. Other eczema Versus psoriasis. Presence on the scalp, behind the ears, is highly suspicious for psoriasis. Will treat with clobetasol solution. 3. Need for hepatitis B screening test - HEPATITIS B SURFACE ANTIGEN; Future 4. Need for hepatitis C screening test - HEPATITIS C AB W REFLEX TO HCV RNA BY PCR; Future 5. Screening for tuberculosis - QUANTIFERON TB GOLD PLUS; Future 6. Psoriasis See #2 above. - clobetasoL (TEMOVATE) 0.05 % external solution; Apply topically 2 times daily. Dispense: 50 mL; Refill: 2 Follow up 4 months. I spent a total of 50 minutes on the date of this encounter meeting with the patient and reviewing documentation/coordinating care as described in the above note. No procedures were performed at the time of the visit. The following individuals and their role did participate in today's encounter visit: Provider: Dena Stephenson MD Patient Dena Stephenson MD 04/21/2024 11:38 documented in this encounter Plan of Treatment Upcoming Encounters Date Type Department Care Team (Late st Contact Info) Description 01/28/2025 8:30 EDT Office Visit [facility] Rheumatology [address] [place] [address] Dena Stephenson MD [address] [place] [address] [place] [address] documented as of this encounter Results * HEPATITIS C AB W REFLEX TO HCV RNA BY PCR (09/09/2024 13:08 EDT) Hep C Antibody Negative Negative 09/10/2024 15:36 EDT [facility] Blood VENOUS BLOOD / Unknown Venipuncture / Unknown 09/09/2024 13:08 EDT 09/09/2024 13:10 EDT us Dena Stephenson MD CHEMISTRY & BLOOD GAS ORDERABLE S Final Result [facility] [address] [place] [address] * HEPATITIS B SURFACE ANTIGEN (09/09/2024 13:08 EDT) Hep B Surface Ag Negative Negative 09/10/2024 14:42 EDT [facility] Blood VENOUS BLOOD / Unknown Venipuncture / Unknown 09/09/2024 13:08 EDT 09/09/2024 13:10 EDT us Dena Stephenson MD CHEMISTRY & BLOOD GAS ORDERABLE S Final Result [facility] [address] [place] [address] documented in this encounter Visit Diagnoses Diagnosis Seronegative spondyloarthropathy- Primary Spondylosis of unspecified site without mention of myelopathy Other eczema Need for hepatitis B screening test Need for hepatitis C screening test Special screening examination for other specified viral diseases Screening for tuberculosis Screening examination for pulmonary tuberculosis Psoriasis Other psoriasis documented in this encounter Discontinued Medications Medication Sig Discontinue Reason Start Date End Da te prochlorperazine (COMPAZINE) 10 mg tablet Take 1 Tablet by mouth every 6 hours as needed for Nausea. 09/19/2022 04/21/2024 documented as of this encounter Care Teams Zoo Keeper Relationship Specialty Start Date End Date Grace Raya, PROSTHETIC ASSISTANT [address] [place] [address] PCP - General 05/19/20 documented as of this encounter
--- OUTSIDE RECORDS SUMMARY | 2024-10-26 18:53 | XMS_ITS | Encounter Summary ---
Author Organization [facility] Address [address] [place] [address] Care Team Providers Care Pharmacy Delivery Driver Name Role Phone Grace Raya LINK TRAINER OPERATOR Primary Care Provider [phone] Reason for Referral * Radiology Services (Routine/Next Available) - Authorization Not Required Specialty Diagnoses / Procedures Referred By Contac t Referred To Contact Diagnoses Chronic right-sided low back pain with right-sided sciatica Procedures XR SACROILIAC JOINTS 3 OR MORE VIEWS Dena Stephenson MD Phone: tel: fax: [facility] Referral ID Status Reason Start Date Expiration Date Visits Requested Visits Authorized [id number] Authorization Not Required 07/30/2023 1 1 Reason for Visit * Radiology Services (Routine/Next Available) - Authorization Not Required Specialty Diagnoses / Procedures Referred By Contac t Referred To Contact Diagnoses Chronic right-sided low back pain with right-sided sciatica Procedures XR SACROILIAC JOINTS 3 OR MORE VIEWS Dena Stephenson MD Phone: tel: fax: [facility] Referral ID Status Reason Start Date Expiration Date Visits Requested Visits Authorized [id number] Authorization Not Required 07/30/2023 1 1 Encounter Details Date Type Department Care Team (Latest Contact Info) Description 08/02/2023 15:58 EDT - 08/02/2023 23:59 EDT Hospital Encounter [facility] Xray [address] [place] [address] Chronic right-sided low back pain with right-sided [...] daily. 3 documented as of this encounter Discharge Disposition Disposition Code Departure Means Destination Home or Self Care documented in this encounter Plan of Treatment Upcoming Encounters Date Type Department Care Team (Late st Contact Info) Description 01/28/2025 8:30 EDT Office Visit [facility] Rheumatology [address] [place], [place] [address] eDna Stephenson MD [address] [facility] [address] [place] [phone] documented as of this encounter Procedures Procedure Name Priority Date/Time Associated Diagnosis Comments XR SACROILIAC JOINTS 3 OR MORE VIEWS Routine 08/02/2023 16:15 EDT Chronic right-sided low back pain with right-sided sciatica documented in this encounter Results * XR SACROILIAC JOINTS [...] REGARDING THIS REPORT PLEASE CALL [facility] AT [phone] Narrative 08/03/2023 14:22 EDT PROCEDURE INFORMATION: Exam: [...] CONCERNS REGARDING THIS REPORT PLEASE CALL [facility] [phone] us Dena Stephenson MD IMG DIAGNOSTIC IMAGING ORDERABL ES Final Result documented in this encounter Visit Diagnoses Diagnosis Chronic right-sided low back pain with right-sided sciatica documented in this encounter Care Teams Pharmacy Delivery Driver Relationship Specialty Start Date End Date Grace Raya, LINK TRAINER OPERATOR [address] [place] [address] PCP - General 05/19/20 documented as of this encounter
--- OUTSIDE RECORDS SUMMARY | 2024-10-26 18:54 | XMS_ITS | Encounter Summary ---
Author Organization [facility] Address [address] [place] [address] Care Team Providers Care Pe Teacher Name Role Phone Grace Raya BELT MOLDER Primary Care Provider [phone] Encounter Details Date Type Department Care Team (Latest Contact Info) Description 07/21/2020 Travel Social History Tobacco Use Types Packs/Day Years Used Date Smoking Tobacco: Never Smokeless Tobacco: Never Interpersonal Safety Answer Date Record ed Physically Hurt Never 06/12/2020 Verbally Threaten Not on file 06/12/2020 Comments Unknown Sex and Gender Information Value Date Recorded Sex Assigned at Not on file Legal Sex Female 18:34 EST Gender Identity Female 02/07/2020 8:04 EDT Sexual Orientation Not on file COVID-19 Exposure Response Date Recorded In the last month, have you been in contact with someone who was confirmed or suspected to have Coronavirus / COVID-19? No / Unsure 07/21/2020 8:37 EDT documented as of this encounter Plan of Treatment Upcoming Encounters Date Type Department Care Team (Late st Contact Info) Description 01/28/2025 8:30 EDT Office Visit [facility] Rheumatology [address] [place] [address] Dena Stephenson MD 130 [facility] [address] [place] [address] documented as of this encounter Visit Diagnoses Not on filedocumented in this encounter Care Teams Pe Teacher Relationship Specialty Start Date End Date Grace Raya NP [address] [place] [address] PCP - General 05/19/20 documented as of this encounter
--- OUTSIDE RECORDS SUMMARY | 2024-10-26 18:54 | XMS_ITS | Encounter Summary ---
Author Organization [facility] Address [address] [place] [address] Care Team Providers Care Mangle Roller Name Role Phone Grace Raya EVENT COORDINATOR MARKETING AND SALES Primary Care Provider [phone] Reason for Visit * Reason Onset Date Comments Appointment Related 10/24/2021 Encounter Details Date Type Department Care Team ([facility] Contact Info) Description 10/24/2021 Telephone [facility] Breast Imaging Mammography - [facility] [address] [place], [place] [id number] Jessie Almonte Appointment Related Social History Tobacco Use Types [...] as of this encounter Functional Status * Because of a physical, mental, [...] encounter Miscellaneous Notes * Telephone Encounter - Jessie Almonte - 10/24/2021 1513 EST Patient called in and rescheduled her breast imaging from 10/24/21 to 10/30/21 documented in this encounter Plan of Treatment Upcoming Encounters Date Type Department Care Team (Late st Contact Info) Description 01/28/2025 8:30 EDT Office Visit [facility] Rheumatology [address] [place], [place] [address] Dena Stephenson MD 130 [facility] [address] [place] [phone] documented as of this encounter Visit Diagnoses Not on filedocumented in this encounter Care Teams Mangle Roller Relationship Specialty Start Date End Date Grace Raya NP [address] [place], [place] [phone] PCP - General 05/19/20 documented as of this encounter
--- OUTSIDE RECORDS SUMMARY | 2024-10-26 18:54 | XMS_ITS | Encounter Summary ---
Author Organization [facility] Address [address] [place] [address] Care Team Providers Care Floor Coverings Installer Name Role Phone Grace Raya HANDLE AND VENT MACHINE OPERATOR Primary Care Provider [phone] Encounter Details Date Type Department Care Team (Late Contact Info) Description 10/20/2021 Lab Requisition [facility] Pathology & Laboratory Medicine - [facility] [address] [place] [address] Grace Raya, HANDLE AND VENT MACHINE OPERATOR [address] [place], [place] [phone] Encounter for general adult medical examination without abnormal findings; Encounter for screening for malignant neoplasm of cervix Social History Tobacco Use Types Packs/Day Years [...] Info) Description 01/28/2025 8:30 EDT Office Visit [facility] Rheumatology [address] [place] [address] Dena Stephenson MD 130 [facility] [address] [place] [address] documented as of this encounter Procedures Procedure Name Priority Date/Time Associated Diagnosis Comments PAP TEST Today 10/17/2021 9:00 EST Encounter for general adult medical examination without abnormal findings Encounter for screening for malignant neoplasm of cervix documented in this encounter Results * PAP TEST (10/17/2021 9:00 EST) Specimens A. Cervix and/or Endocervix , ThinPrep Imaging System with Manual Evaluation 10/26/2021 13:37 EST [facility] Specimen Adequacy Satisfactory for Evaluation - transformation zone component present 10/26/2021 13:37 EST [facility] General Categorization Negative for intraepithelial lesion or malignancy 10/26/2021 13:37 EST [facility] Descriptive Diagnosis Reactive cellular changes associated with inflammation present (includes repair). Shift in giulia present suggestive of bacterial vaginosis. 10/26/2021 13:37 [facility] Attestation By the signature below, the attending physician certifies that they have personally conducted a gross and/or microscopic examination of the described specimens and rendered or confirmed the above diagnosis. 10/26/2021 13:37 [facility] at [address]7 Clinical History See below 10/26/20 13:37 [facility] Performing Lab [facility] 10/26/2021 13:37 [facility] Scanned Images 10/26/2021 13:37 [facility] Papanicolaou smear specimen (specimen) CERVIX UTERI STRUCTURE / Unknown 10/17/2021 9:00 EST 10/20/2021 11:03 EST Grace Raya NP PATHOLOGY ORDERABLES Final Re sult [facility] [address] [place] [address] documented in this encounter Visit Diagnoses Diagnosis Encounter for general adult medical examination without abnormal findings Unspecified general medical examination Encounter for screening for malignant neoplasm of cervix Screening for malignant neoplasm of the cervix documented in this encounter Care Teams Floor Coverings Installer Relationship Specialty Start Date End Date Grace Raya, HANDLE AND VENT MACHINE OPERATOR [address] [place] [address] PCP - General 05/19/20 documented as of this encounter
--- OUTSIDE RECORDS SUMMARY | 2024-10-26 18:54 | XMS_ITS | Encounter Summary ---
Author Organization [facility] Address [address] [place] [address] Care Team Providers Care Talent Management Specialist Name Role Phone Grace Raya SLITTER SCORER Primary Care Provider [phone] Encounter Details Date Type Department Care Team ([facility] st Contact Info) Description 05/26/2021 14:45 EDT Phlebotomy Only [facility] Services - [address] [address] [facility] Screening examination for pulmonary tuberculosis Social History Tobacco Use Types Packs/Day Years Used Date Smoking Tobacco: Never Smokeless Tobacco: Never Humiliation, Afraid, Rape, and Kick questionnair e [...] Description 01/28/2025 8:[address] [facility] Rheumatology [address] [place] [address] Dena Stephenson MD [address] [place], [place] [address] [address] [phone] documented as of this encounter Procedures Procedure Name Priority Date/Time Associated Diagnosis Comments QUANTIFERON TB GOLD PLUS Routine 05/26/2021 14:53 EDT Screening examination for pulmonary tuberculosis documented in this encounter Results * QUANTIFERON TB GOLD PLUS (05/26/2021 14:53 EDT) [facility] Quantiferon Interpretation Negative Negative 05/29/2021 14:09 EDT [facility] Comment: No interferon-gamma response to M. tuberculosis antigens was detected. ??Infection with M. tuberculosis is unlikely. A single negative result does not exclude infection with M. tuberculosis. ??In patients at high risk for M. tuberculosis infection, a second test should be considered in accordance with the 2017 ATS/IDSA/CDC Clinical Practice Guidelines for Diagnosis of Tuberculosis in Adults and Children. [Sharifa SOUZA et. al. Clin. Infect. Dis. 2017:64 (2) ??: 111-115]. Results were obtained with the [employer] QuantiFERON TB Gold Plus ZI. TB1 Ag minus Nil 0.00 IU/ml 05/29/20 14:09 EDT [facility] TB2 Ag minus Nil 0.00 IU/mL 05/29/20 21 14:09 EDT [facility] Blood VENOUS BLOOD / Unknown Venipuncture / Unknown 05/26/2021 14:53 EDT 05/26/2021 14:53 EDT Narrative [facility] - 05/29/2021 14:09 EDT Results were obtained with the [employer] QuantiFERON-TB Gold Plus ZI. Jordan Ramsey MD CHEMISTRY & BLOOD GAS O RDERABLES Final Result [facility] [address] [place] [address] documented in this encounter Visit Diagnoses Diagnosis Screening examination for pulmonary tuberculosis documented in this encounter Care Teams Talent Management Specialist Relationship Specialty Start Date End Date Grace Raya NP [address] [place] [address] PCP - General 05/19/20 documented as of this encounter
--- OUTSIDE RECORDS SUMMARY | 2024-10-26 18:54 | XMS_ITS | Encounter Summary ---
Author Organization [facility] Address [address] [place] [address] Care Team Providers Care Public Relations Sales Marketing Name Role Phone Grace Raya [employer] Primary Care Provider [phone] Encounter Details Date Type Department Care Team ([facility] st Contact Info) Description 05/24/2021 Orders Only [address] [phone] Oriana Cedillo, RN Screening examination for pulmonary tuberculosis (Primary Dx); Immunity status testing Social History Tobacco Use Types Packs/Day Years [...] Info) Description 01/28/2025 8:30 EDT Office Visit [facility] Rheumatology [address] [place] [address] Dena Stephenson MD [address] [place] [address] [address] documented as of this encounter Results * QUANTIFERON TB GOLD PLUS (05/26/2021 14:53 EDT) [facility] Quantiferon Interpretation Negative Negative 05/29/2021 14:09 EDT [facility] Comment: No interferon-gamma response to M. tuberculosis antigens was detected. ??Infection with M. tuberculosis is unlikely. A single negative result does not exclude infection with M. tuberculosis. ??In patients at high risk for M. tuberculosis infection, a second test should be considered in accordance with the 2017 ATS/IDSA/CDC Clinical Practice Guidelines for Diagnosis of Tuberculosis in Adults and Children. [Sharifa SOZUA et. al. Clin. Infect. Dis. 2017:64 (2) ??: 111-115]. Results were obtained with the Qiagen QuantiFERON TB Gold Plus ZI. TB1 Ag minus Nil 0.00 IU/ml 05/29/20 21 14:09 [facility] TB2 Ag minus Nil 0.00 IU/mL 05/29/20 14:09 [facility] Blood VENOUS BLOOD / Unknown Venipuncture / Unknown 05/26/2021 14:53 EDT 05/26/2021 14:53 EDT Narrative [facility] - 05/29/2021 14:09 EDT Results were obtained with the [employer]agen QuantiFERON-TB Gold Plus ZI. us Jordan Ramsey MD CHEMISTRY & BLOOD GAS O RDERABLES Final Result [facility] [address] [place] [address] documented in this encounter Visit Diagnoses Diagnosis Screening examination for pulmonary tuberculosis- Primary Immunity status testing Antibody response examination documented in this encounter Care Teams Public Relations Sales Marketing Relationship Specialty Start Date End Date Grace Raya NP [address] [place] [address] PCP - General 05/19/20 documented as of this encounter
--- OUTSIDE RECORDS SUMMARY | 2024-10-26 18:54 | XMS_ITS | Encounter Summary ---
Author Organization [facility] Address [address] [place] [address] Care Team Providers Care Supplier Quality Engineer Name Role Phone Grace Raya Tessy ELEPHANT TAMER Primary Care Provider [phone] Reason for Visit * Reason Comments Follow-up LBP with sciatica; b faith wright is a level 3 at present. Stopped Nabumetone because it made her sick. Encounter Details Date Type Department Care Team (Late Contact Info) Description 09/05/2020 15:30 EDT Office Visit [facility] Rheumatology [address] [place] [address] D[facility] [address] [facility] [address] [place] [address] Chronic right-sided low back pain with right-sided sciatica (Primary Dx) Social History Tobacco Use Types [...] Sign Reading Time Taken Comments Blood Pressure 118/74 09/05/2020 152 EDT Pulse 64 09/05/2020 152 EDT Temperature 36.6 ??C (97.8 ??F) 09/05/2020 152 EDT Respiratory Rate - - Oxygen Saturation - - Inhaled Oxygen Concentration - - Weight 70.3 kg (155 lb) 09/05/2020 152 EDT Height 157.5 cm (5' 2) 09/05/2020 152 EDT Body Mass Index 28.35 09/05/2020 1527 EDT documented in this encounter Functional Status * Because of a physical, mental, or emotional condition, does this person have difficulty doing errands alone such as visiting a doctor's office or shopping? Answer Date of Assessment Author No 09/05/2020 15:32 EDT documented as of this encounter Mental Status * Because of a physical, mental, or emotional condition, does this person have serious difficulty concentrating, remembering, or making decisions? Answer Entry Date Author No 09/05/2020 15:32 EDT documented in this encounter Patient Instructions * Patient Instructions* Dena Stephenson MD - 09/05/2020 15:30 EDT We will refer you for a SI joint injection. If you're not hearing to schedule, please call us. documented in this encounter Progress Notes * Dena Stephenson MD - 09/05/2020 1530 EDT [facility] Rheumatology Chief Complaint Patient presents with ??? Follow-up LBP with sciatica; back piain is a level 3 at present. Stopped Nabumetone because it made her sick. HPI: Chronic right-sided low back pain with [...] antibodies for SLE, Sjogren's, etc are negative. INTERVAL HISTORY: Liudmila returns for follow up. I had started her on nabumetone at the last visit in Jul. She ended upstopping it because it made her nauseated. I checked specific antibodies for SLE, etc, and these were negative. Repeat liver panel wnl. She is taking gabapentin, up to 300 mg per day, and occasional ibuprofen. Says the gabapentin helps; not sure about the ibuprofen. Pain is still located at the right SI joint area and central low back. Back pain wakes her up at times. Says last flare up was about a week ago, lasting a couple of days. Current Outpatient Medications Medication ??? albuterol 90 mcg/actuation inhaler ??? citalopram (CELEXA) 20 mg tablet ??? gabapentin (NEURONTIN) 100 mg capsule ??? levonorgestrel (MARIAN INTRAUTERINE) No current facility-administered medications for this visit. Allergies include: Prednisone Patient Active Problem List Diagnosis ??? Exercise-induced asthma ??? Chronic right-sided low back pain with right-sided sciatica ??? Chronic gingivitis ??? 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 Lives in [place]. Review of Systems: No reports of shortness of breath, chest pain, rash, weight loss. Had a headache when taking nabumetone, and this resolved when she stopped the nabumetone. Physical Examination: BP 118/74 Pulse 64 Temp 36.6 ??C (97.8 ??F) Ht 157.5 cm (62) Wt 70.3 kg (155 lb) BMI 28.35 kg/m?? EYES: Conjunctivae not injected. ENT: Wearing a mask. NECK: Normal extension and lateral rotation without pain. JOINT EXAM: No synovitis of the joints of the hands, wrists. Full painless ROM of shoulders, elbows, wrists, hips, knees and ankles. Elbows are hypermobile. BACK: Tender at right SI joint. Nontender on contralateral areas. Negative JOHNNA bilaterally. SKIN: No rash on arms, legs, trunk. Hypopigmentation on forehead. Labs: Lab Requisition on 07/28/2020 Component Date Value ? ? Anti-DNA (Double Strande* 07/28/2020 <12.3 Results Only on 07/28/2020 Component Date Value ??? ALBUMIN - [facility] 07/28/2020 4.2 ??? ALKALINE PHOSPHATASE - C* 07/28/2020 66 ??? BILIRUBIN DIRECT CALC - * 07/28/2020 0.0 ??? BILIRUBIN TOTAL - [facility] 07/28/2020 0.3 ??? Unconjugated Bilirubin 07/28/2020 0.3 ??? TOTAL PROTEIN - [facility] 07/28/2020 7.7 ??? SGOT/AST - [facility] 07/28/2020 20 ??? SGPT/ALT - [facility] 07/28/2020 12 ? ? Anti DNA (DS) 07/28/2020 <12.3 ? ? MARIA A 1 AB IGG, S - [facility] 07/28/2020 <0.2 ??? RUG LAYER AB IGG, - [facility] 07/28/2020 0.5 ? ? SCL 70 AB, IGG, - [facility] 07/28/2020 <0.2 ? ? GRAFF AB IGG - [facility] 07/28/2020 <0.2 ? ? SS-A/RO AB, IGG,S - [facility] 07/28/2020 <0.2 ? ? SS-B/LA AB,IGG,S - [facility] 07/28/2020 <0.2 Lab Requisition on 07/05/2020 Component Date Value ??? Gonococcus Result 07/05/2020 Negative ??? Chlamydia Result 07/05/2020 Negative Lab Requisition on 05/19/2020 Component Date Value ??? EL Interpretation 05/19/2020 Positive* ??? EL Titer and Pattern 1 05/19/2020 1:160 Homogeneous Office Visit on 05/19/2020 Component Date Value ??? EL Interpretation 05/19/2020 Positive* ??? EL Titer and Pattern 1 05/19/2020 1:160 Homogeneous ??? ALBUMIN - [facility] 05/19/2020 4.9 ??? ALKALINE PHOSPHATASE - C* 05/19/2020 76 ??? BILIRUBIN TOTAL - [facility] 05/19/2020 0.4 ??? BUN - [facility] 05/19/2020 13 ??? CALCIUM - [facility] 05/19/2020 9.9 ??? Chloride 05/19/2020 100 ??? CO2 Total 05/19/2020 20* ??? CREATININE 05/19/2020 0.57 ? ? eGFR 05/19/2020 >60 ??? Anion Gap 05/19/2020 17 ??? GLUCOSE - [facility] 05/19/2020 91 ??? Potassium 05/19/2020 4.1 ??? Sodium 05/19/2020 137 ??? TOTAL PROTEIN - [facility] 05/19/2020 8.9* ??? SGOT/AST - [facility] 05/19/2020 27 ??? SGPT/ALT - [facility] 05/19/2020 15 ??? C-Reactive Protein 05/19/2020 5.5 ??? Gran # 05/19/2020 8.2 ??? BASO # - [facility] 05/19/2020 0.06 ??? BASO % - [facility] 05/19/2020 1 ??? EOS # - [facility] 05/19/2020 0.27 ??? EOS % - [facility] 05/19/2020 2 ??? GRAN % - [facility] 05/19/2020 68.1 ??? HEMATOCRIT - [facility] 05/19/2020 41.7 ??? HEMOGLOBIN - [facility] 05/19/2020 14.3 ??? IG# - [facility] 05/19/2020 0.06 ??? IG% - [facility] 05/19/2020 0.5 ??? LYMPH # - [facility] 05/19/2020 2.7 ??? LYMPH% - [facility] 05/19/2020 22.6 ??? MEAN CORPUSCULAR HGB - C* 05/19/2020 30.1 ??? MEAN CORPUSCULAR HGB CON* 05/19/2020 34.3 ??? MEAN CELL VOLUME - [facility] 05/19/2020 87.8 ??? MONO # - [facility] 05/19/2020 0.7 ??? MONO% - [facility] 05/19/2020 6.0 ??? PLATELET COUNT 05/19/2020 359 ??? RED BLOOD COUNT - [facility] 05/19/2020 4.75 ??? RED CELL DISTRI WIDTH - * 05/19/2020 12.5 ??? WHITE BLOOD COUNT - [facility] 05/19/2020 12.0 Lab Requisition on 05/12/2020 Component Date Value ??? Quantiferon Interpretati* 05/12/2020 Negative ??? TB1 Ag minus Nil 05/12/2020 0.00 ??? TB2 Ag minus Nil 05/12/2020 0.00 Lab Requisition on 05/12/2020 Component Date Value ??? Hep B Surface Ag 05/12/2020 Negative ? ? Hep B Surface Ab, Quanti* 05/12/2020 <3.1 ??? Hep B Surface Ab, Qualit* 05/12/2020 Negative ??? Hepatitis B Core Ab, Tot* 05/12/2020 Negative ??? Mumps Antibody IgG 05/12/2020 Positive ??? Rubella IgG Ab 05/12/2020 Positive ??? Measles IgG Ab 05/12/2020 Positive ??? Varicella IgG Ab 05/12/2020 Positive ??? Hold 05/12/2020 Hold Xrays lumbar spine, 08/12/19, Josefina, indicated increased [...] responsive to NSAIDS. Equivocal inflammatory features. Hypermobility. I'm not convinced that this is early ankylosing spondylitis. This could be due to hypermobility. Another consideration is osteitis condensans ilii due to m echanical cause. Will continue to treat conservatively. - AMB CONS/FOLLOW UP ANESTHESIOLOGY; Future Will arrange for a right SI joint cortisone injection. Will hold on further medication trials. Follow up in two months. Dena Stephenson MD 09/05/2020 15:38 * Nathaly Sigala - 09/05/2020 1530 EDT [facility] -has or was patient scheduled? * Precious Whiteheda - 09/05/2020 1530 EDT Pain clinic note scanned into chart and routed to Dr. Stephenson documented in this encounter Plan of Treatment Upcoming Encounters Date Type Department Care Team (Late st Contact Info) Description 01/28/2025 8:30 EDT Office Visit [facility] Rheumatology [address] [place] [phone] Dena Stephenson MD [address] [place] [address] [address] [place] [phone] documented as of this encounter Visit Diagnoses Diagnosis Chronic right-sided low back pain with right-sided sciatica- Primary documented in this encounter Discontinued Medications Medication Sig Discontinue Reason Start Date End Da te nabumetone (RELAFEN) 750 mg tabletIndications:Chron ic right-sided low back pain with right-sided sciatica Take 1 Tab by mouth 2 times daily. Patient Stopped Taking 07/26/2020 09/05/2020 documented as of this encounter Care Teams Supplier Quality Engineer Relationship Specialty Start Date End Date Grace Raya NP [address] [place] [address] PCP - General 05/19/20 documented as of this encounter
--- OUTSIDE RECORDS SUMMARY | 2024-10-26 18:54 | XMS_ITS | Encounter Summary ---
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 Reports concern for IUD being dislodged. Encounter Details Date Type Department Care Team (Late st Contact Info) Description 06/12/2021 23:12 EDT - 06/13/2021 4:14 EDT Emergency [facility] Emergency Department - [address] [address] Maeve Capps PA-C [address] [place] [phone] Darleen Hughes PA-C [address] [place] [phone] Suprapubic pain (Primary Dx); Periumbilical pain Discharge Disposition: Home or Self Care Social [...] have Coronavirus / COVID-19? No / Unsure 06/12/2021 21:06 EDT documented as of this encounter Last Filed Vital Signs Vital Sign Reading Time Taken Comments Blood Pressure 112/68 06/13/2021 0412 EDT Pulse 64 06/13/2021 0412 EDT Temperature 36.6 ??C (97.9 ??F) 06/12/20212104 EDT Respiratory Rate 16 06/13/2021 0412 EDT Oxygen Saturation 100% 06/13/2021 0412 EDT Inhaled Oxygen Concentration - - Weight 68 kg (150 lb) 06/12/20212104 EDT Height 154.9 cm (5' 1) 06/12/20212104 EDT Body Mass Index 28.34 06/12/2021 210 EDT documented in this encounter Functional Status [...] this encounter Discharge Instructions * Discharge Instructions* Darleen Hughes PA-C - 06/13/2021 4:07 EDT Please follow-up with your primary care provider this week Your pelvic ultrasound shows no acute concerns Your urine shows no acute infection Vaginal swabs were obtained for STD analysis. You can use ibuprofen and/or Tylenol for pain as needed Return in the next 6 to 8 hours for continued abdominal pain, fever, vomiting, passing bloody stools. * Attachments The following attachments cannot be sent through Care Everywhere. * Abdominal Pain (Uzbek) * Pelvic Pain (Uzbek) documented in this encounter Medications at Time of Discharge albuterol 90 mcg/actuation inhaler citalopram (CELEXA) 20 mg tablet TAKE 1.5 TABLETS BY MOUTH EVERY DAY 12/17/2019 rizatriptan benzoate (RIZATRIPTAN ORAL) Take by mouth if needed (PRN for migraine). triamcinolone (ARISTOCORT) 0.5 % cream Apply topically 2 times daily. use thin layer, as needed doxycycline (VIBRA-TABS) 100 mg tablet Take 1 Tablet by mouth 2 times daily for 7 days. 14 Tablet 06/13/2021 1 gabapentin (NEURONTIN) 100 mg capsule Take 3 Capsules by mouth daily. 3-4 times weekly 12/17/2019 4 inhalational spacing device (AEROCHAMBER MV)Indications:u se with proaire HFA Inhale as directed. 3 levonorgestrel (MARIAN INTRAUTERINE) by intrauterine route. Put in 3 days ago. 3 triamcinolone (KENALOG) 0.1 % cream Apply topically 2 times daily. 3 documented as of this encounter Ordered Prescriptions Prescription Sig Dispense Quantity Refills Last Filled Start Date End Date doxycycline (VIBRA-TABS) 100 mg tablet Take 1 Tablet by mouth 2 times daily for 7 days. 14 Tablet 06/13/2021 06/20/2021 documented in this encounter Discharge Disposition Disposition Code Departure Means Destination Home or Self Group Home documented in this encounter ED Notes * Rehana Luna RN - 06/13/2021 0414 EDT No change in pt condition since the last time MD assessed. Pt to follow up with PCP and return withany change in symptoms. AVS completed with pt, pt verbalizes understanding. Pt is a&ox4, VSS, no complaints of SOB/CP, pt ambulates out of facility. * Darleen Hughes PA-C - 06/13/2021 0408 EDT I, Marylou Ren, am scribing for Darleen Hughes PA-C while he/she is personally performing the service. Marylou Ren 06/13/2021 4:08 Liudmila Kiser is a 21 y.o. female who presents to the ED with abdominal pain. Patient endorses cramping lower abdominal pain s/p intercourse yesterday, which has worsened throughout the day today. Shereports no history of ovarion cyst rupture and normal vaginal discharge. Patient explains that she is sexually active with 1 partner. She states that she is experiencing distension at this time. Patient reports that she moved her bowels earlier today and has been well hydrated. Patient denies fever or chills. Care and work-up prior to sign out includes labs. I assumed care of patient from [facility] with Pelvic US and STD cultures pending. After I assumed care the patient had Pelvic US. The patient had a Pelvis US which was significant for normal color Doppler flow in normal appearingovaries. IUD in appropriate position. Patient had US that was obtained, reviewed, and interpreted by myself along with a radiologist. Please see radiology report for further details. 0001: Administered 1 g Tylenol PO. 0155: Administered 1 L NS bolus. 0355: Patient informed of her Pelvic US results and given return precautions. On reevaluation, patient notes that she does not feel well secondary to persistence of abdominal cramping and distension. 0407: Admnistered 15 mL Mylanta-DS PO. Prior to discharge usual and customary precautions were reviewed with the patient and/or family including follow-up instructions and reasons to return to the Emergency Department if condition worsens, does not improve as expected, or other new concerns arise. Patient amenable to discharge with STD results pending. She was instructed to follow up with her PCP within the week. This documentation is recorded by Marylou Ren acting as Scribe under the direction and presence of Darleen Hughes PA-C. Darleen Hughes PA-C: I personally performed the services recorded by the scribe in my presence. I confirm the scribe's documentation has been reviewed by me to accurately and completely record my work, treatment, procedures, and medical decision making. * Nikki Mead RN - 06/13/2021 0054 EDT Provider at bedside * Nikki Mead RN - 06/13/2021 0020 EDT US at bedside, US states they cannot do imaging until bladder is full. Provider aware and verbal order for 500cc NS * Maeve Capps PA-C - 06/12/2021 2338 EDT This patient received an evaluation and medical screening exam for emergent medical conditions at the [facility] on 06/12/2021 Dr. Costello was available as the supervising attending. Chief Complaint Abdominal pain HPI Liudmila Kiser is a 21 y.o. female who presents to the ED for abdominal pain. Patient reports that she was having intercourse with her boyfriend last night, shortly after she began to have diffuse lower abdominal cramping, abdominal pain has persisted throughout the day and worsened, now entire abdomen feels sore and tender. Has not had any vaginal bleeding, discharge, this is a monogamous partner,and nothing traumatic or unusual about the intercourse. Denies dysuria, frequency urgency. Denies nausea and vomiting, was able to eat today. Has never had similar symptoms like this before. History was provided by: Patient Patient's pertinent PMH, FH, SH were reviewed and updated PRN. ROS A 10 point review of systems has been performed and is otherwise negative except as noted in the HPI. Physical Exam Vital Signs Temp: 36.6 ??C (97.9 ??F) Temp src: Temporal Pulse: 92 Resp: 16 SpO2: 100 % BP: 140/86 BP Device: BP Machine BP Patient Position: Sitting BP Cuff Location: Left arm O2 Device: None (Room air) Nursing notes and vital signs were reviewed. Constitutional: Well appearing, well nourished and in no acute distress, nontoxic, comfortable Eyes: Pupils equal and reactive to light, extra-ocular movements intact. Mouth: Oropharynx is clear and moist. Neck: Full ROM, supple. Heart: RRR without MRG. Strong peripheral pulses Lungs: No Respiratory distress, clear to auscultation bilaterally. Abdomen: Soft, tender in the lower abdomen most notably over suprapubic area, nondistended, normal bowel sounds. 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 Skin: No overt rashes on exposed skin, non-diaphoretic. Extremities: Moving spontaneously, warm and well perfused. No lower extremity edema. Neuro: Grossly neurologically intact with normal speech, alert and oriented. Psych: No agitation or overt thought disorder. Laboratory Results Labs Reviewed COMPLETE BLOOD COUNT AND DIFFERENTIAL - Abnormal Result Value Status WBC 13.66 (*) Final RBC 3.93 Final Hemoglobin 11.9 Final HCT 34.8 (*) Final MCV 89 Final MCH 30.3 Final MCHC 34.2 Final RDW-CV 12.6 Final RDW-SD 41.1 Final PLT 271 Final MPV 10.4 Final Neutrophils 59.3 Final Lymphocytes 26.9 Final Monocytes 7.8 Final Eosinophils 4.8 Final Basophils 0.7 Final Immature Grans 0.5 Final Absolute Neutrophils 8.10 Final Absolute Lymphocytes 3.67 (*) Final Absolute Monocytes 1.07 (*) Final Absolute Eosinophils 0.65 (*) Final Absolute Basophils 0.10 Final Absolute Immature Grans 0.07 (*) Final Type of Differential: Auto Final POCT URINE DIPSTICK, CLINITEK - Abnormal Color, UA Yellow Final Clarity, UA Cloudy (*) Final Glucose, UA Negative Final Bilirubin, UA Negative Final Ketones, UA Negative Final Specific [place], Urine 1.025 Final Blood, UA Negative Final pH, UA 7.0 Final Protein, UA Negative Final Urobilinogen, UA 1.0 Final Nitrite, UA Negative Final Leuk Esterase Negative Final HN LAB COMMENT (CLINITEK, UR) Test performed at Emergency Department Final VAGINITIS EXAM (pending) CHLAMYDIA/N. GONORRHOEAE AMPLIFIED RNA POCT URINE CLINITEK (DIPSTICK) - DOES NOT REFLEX Narrative: The following orders were created for panel order POCT URINE CLINITEK (DIPSTICK) - DOES NOT REFLEX. Procedure Abnormality Status --------- ------ POCT URINE DIPSTICK, CLI...[[id number]] Abnormal Final result POCT CSN BARCODE URINE D...[[id number]] Final result Please view results for these tests on the individual orders. POCT TEST, CLINITEK ORDER Narrative: The following orders were created for panel order POCT TEST, CLINITEK ORDER. Procedure Abnormality Status --------- ------ POCT TEST, CLI...[[id number]] Final result POCT CSN BARCODE URINE P...[[id number]] Final result Please view results for these tests on the individual orders. POCT CSN BARCODE URINE DIPSTICK POCT CSN BARCODE URINE PREG TEST POCT TEST, CLINITEK UPT Result Negative Final HN LAB COMMENT (CLINITEK, UPT) Test performed at Emergency Department Final Data Interpretation Imaging obtained was reviewed and independently interpreted: Imaging Results None Procedures Procedures ED Course/Medical Decision Making A medical screening was performed. This is a 21 y.o. female presenting with pelvic pain after intercourse last night. On exam she is well-appearing with normal vital signs, has generalized tenderness, most over suprapubic area. Vaginal exam reassuring, no CVA tenderness, strings of IUD visualized. Concern for possible ovarian cyst, r uptured cyst, hemorrhagic cyst. Will send BV and vaginitis swabs. Plan for ultrasound of the pelvis. Signed out to oncclarissa SOLO awaiting ultrasound. While under my care in the Emergency Department, the patient's pain was managed to an adequate level weighing risk vs. benefit of medication. Clinical Impression Final diagnoses: None Disposition Signed out (see progress Notes) The patient's pain was managed to an adequate level weighing risk vs. benefit of further medications. Any further pain treatment will be at the discretion of the provider following up with the patient based on their clinical assessment. documented in this encounter Miscellaneous Notes * Result Encounter Note - Arron Patel RPH - 06/13/2021 0414 EDT Spoke with patient to inform of positive chlamydia result. Sent erx for doxycycline 100 mg BID x 7 days to John per EDIL Garcia. Additionally, sent doxycycline erx for patient's partner via [place] [facility]. Discussed importance of medication compliance and abstinence of sexual activity while on treatment. Reinforced appropriate return precautions should condition worsen, not improve as expected, or new concerning symptoms develop. Patient verbalized good understanding of instructions. Arron Patel PharmD Pager [phone] documented in this encounter Plan of Treatment Upcoming Encounters Date Type Department Care Team (Late st Contact Info) Description 01/28/2025 8:30 EDT Office Visit [facility] Rheumatology [address] [place] [phone] Dena Stephenson MD [address] [place] [address] [address] [place] [phone] documented as of this encounter Procedures Procedure Name Priority Date/Time Associated Diagnosis Comments ZZVAGINITIS EXAM Routine 06/13/2021 2:15 EDT CHLAMYDIA/N. GONORRHOEAE AMPLIFIED NUCLEIC ACID Routine 06/13/2021 2:14 EDT US PELVIS TRANSABDOMINAL COMPLETE WITH LIMITED DUPLEX STAT 06/13/2021 1:57 EDT POCT CSN BARCODE URINE PREG TEST STAT 06/13/2021 0:00 EDT POCT CSN BARCODE URINE DIPSTICK STAT 06/13/2021 0:00 EDT POCT TEST, CLINITEK ORDER STAT 06/12/2021 23:57 EDT POCT TEST, CLINITEK STAT 06/12/2021 23:57 EDT POCT URINE CLINITEK (DIPSTICK) - DOES NOT REFLEX STAT 06/12/2021 23:54 EDT POCT URINE DIPSTICK, CLINITEK STAT 06/12/2021 23:54 EDT COMPLETE BLOOD COUNT AND DIFFERENTIAL STAT 06/12/2021 23:49 EDT documented in this encounter Results * VAGINITIS EXAM (06/13/2021 2:15 EDT) Trichomonas Antigen Negative Negative 06/13/2021 11:31 EDT [facility] Scored Gram Smear Yeast not present Unable to rule out the presence of bacterial vaginosis 06/13/2021 11:31 EDT [facility] Swab ENTIRE VAGINA / Unknown Swab / Unknown 06/13/2021 2:15 EDT 06/13/2021 7:08 EDT Darleen Hughes PA-C MICROBIOLOGY - GENERAL ORDERABLE S Final Result [facility] [address] [place] [address] * (ABNORMAL) CHLAMYDIA/N. GONORRHOEAE AMPLIFIED RNA (06/13/2021 2:14 EDT) Neisseria gonorrhoeae Result Negative Negative 06/13/2021 14:53 EDT [facility] Chlamydia trachomatis Result Positive(A) Negative 06/13/2021 14:53 EDT [facility] Swab ENTIRE VAGINA / Unknown Swab / Unknown 06/13/2021 2:14 EDT 06/13/2021 7:02 EDT us Darleen Hughes PA-C MICROBIOLOGY - GENERAL ORDERABLE S Final Result [facility] [address] [place] [address] * US PELVIS TRANSABDOMINAL W DOPPLER (06/13/2021 1:57 EDT) Anatomical Region Laterality Modality Pelvis Ultrasound 06/13/2021 9:05 EDT Impressions 06/13/2021 9:05 EDT 1. ??Normal color Doppler flow in normal appearing ovaries. 2. ??IUD in appropriate position. I have personally reviewed the images and the above interpretation and agree with the findings. Narrative 06/13/2021 9:05 EDT US PELVIS TRANSABDOMINAL W DOPPLER ??06/13/2021 12:05 AM SIGNS AND SYMPTOMS/COMMENTS: bilateral and midline pelvic pain, L>R, after intercourse last night, concern for ruptured cyst INDICATION FOR DOPPLER: Concern for ovarian torsion and/or mass COMPARISON: None DOPPLER: Technique: Color and spectral Doppler ultrasound of the pelvis was performed. Findings: Right ovary: Arterial and venous Doppler waveforms and color flow are present in the right ovary. Left ovary: Arterial and venous Doppler waveforms and color flow are present in the left ovary. GRAYSCALE: Technique: Grayscale ultrasound of the pelvis was performed transabdominally only. Findings: LMP: Unknown Uterus: The anteverted uterus measures 6.9 x 3 x 3.7 cm in size. Endometrium: The hyperechoic endometrium measures 4 mm in double endometrial stripe thickness, which is normal. An IUD is present Right ovary: The right ovary measures 3.5 x 2.4 x 2.5 cm in size, for an estimated right ovarian volume of 10.7 mL. Left ovary: The left ovary measures 3.6 x 2.1 x 2.1 cm in size, for an estimated left ovarian volume of 8.5 mL. Cervix: Normal Free fluid: None Procedure Note Moy Gale MD - 06/13/2021 US PELVIS TRANSABDOMINAL W DOPPLER 06/13/2021 12:05 AM SIGNS AND SYMPTOMS/COMMENTS: bilateral and midline pelvic pain, L>R, afterintercourse last night, concern for ruptured cyst INDICATION FOR DOPPLER: Concern for ovarian torsion and/or mass COMPARISON: None DOPPLER: Technique: Color and spectral Doppler ultrasound of the pelvis wasperformed. Findings: Right ovary: Arterial and venous Doppler waveforms and color flow arepresent in the right ovary. Left ovary: Arterial and venous Doppler waveforms and color flow arepresent in the left ovary. GRAYSCALE: Technique: Grayscale ultrasound of the pelvis was performedtransabdominally only. Findings: LMP: Unknown Uterus: The anteverted uterus measures 6.9 x 3 x 3.7 cm in size. Endometrium: The hyperechoic endometrium measures 4 mm in doubleendometrial stripe thickness, which is normal. An IUD is present Right ovary: The right ovary measures 3.5 x 2.4 x 2.5 cm in size, for anestimated right ovarian volume of 10.7 mL. Left ovary: The left ovary measures 3.6 x 2.1 x 2.1 cm in size, for anestimated left ovarian volume of 8.5 mL. Cervix: Normal Free fluid: None IMPRESSION 1. Normal color Doppler flow in normal appearing ovaries. 2. IUD in appropriate position. I have personally reviewed the images and the above interpretation andagree with the findings. us Maeve Capps PA-C IMG US OB ORDERABLES Fi nal Result * POCT CSN BARCODE URINE PREG TEST (06/13/2021 0:00 EDT) Urine URINE SPECIMEN COLLECTION, CLEAN CATCH / Unknown Urine Collect / Unknown 06/13/2021 0:00 EDT 06/13/2021 0:00 EDT us Maeve F Levasy PA-C LAB INFO SERVICE AND MARIE PPORT & PHONE RESULT Final Result Performing Organization Address [facility]/ZIP Co de Phone Number [facility] [address] [place] [address] * POCT CSN BARCODE URINE DIPSTICK (06/13/2021 0:00 EDT) Urine URINE SPECIMEN COLLECTION, CLEAN CATCH / Unknown Urine Collect / Unknown 06/13/2021 0:00 EDT 06/13/2021 0:00 EDT Maeve F Levasy PA-C LAB INFO SERVICE AND MARIE PPORT & PHONE RESULT Final Result Performing Organization Address [facility] Co de Phone Number [facility] [address] [place] [address] * POCT TEST, CLINITEK (06/12/2021 23:57 EDT) UPT Result Negative Negative 06/13/2021 0:03 EDT [facility] HN LAB COMMENT (CLINITEK, UPT) Test performed at Emergency Department 06/13/2021 0:03 EDT [facility] Comment:False negative resul ts may occur in women who are beyond 5-8 weeks gestation. Diagnosis of should be based on a correlation of test results with typical clinical signs and symptoms. Urine URINE SPECIMEN COLLECTION, CLEAN CATCH / Unknown 06/12/2021 23:57 EDT 06/13/2021 0:03 EDT Result [facility] Lev[facility]-C POINT OF CARE TEST ORDE RABLES Final Result Performing Organization Address [facility]/ZIP Co de Phone Number [facility] [address] [place] [address] * (ABNORMAL) POCT URINE DIPSTICK, CLINITEK (06/12/2021 23:54 EDT) Color, UA Yellow Yellow 06/12/2021 23:56 EDT [facility] Clarity, UA Cloudy(A) Clear 06/12/2021 23:56 EDT [facility] Glucose, UA Negative Negative mg/dL 06/12/2021 23:56 T [facility] Bilirubin, UA Negative Negative 06/12/2021 23:56 [facility] Ketones, UA Negative Negative mg/dL 06/12/2021 23:56 [facility] Specific [place], Urine 1.025 1.001 - 1.035 06/12/2021 23:56 [facility] Blood, UA Negative Negative 06/12/2021 23:56 [facility] pH, UA 7.0 <=8 06/12/2021 23:56 [facility] Protein, UA Negative Negative mg/dL 06/12/2021 23:56 [facility] Urobilinogen, UA 1.0 0.2 - 1.0 EU/dL 06/12/2021 23:56 [facility] Nitrite, UA Negative Negative 06/12/2021 23:56 [facility] Leuk Esterase Negative Negative 06/12/2021 23:56 [facility] HN LAB COMMENT (CLINITEK, UR) Test performed at Emergency Department 06/12/2021 23:56 [facility] Urine URINE SPECIMEN COLLECTION, CLEAN CATCH / Unknown 06/12/2021 23:54 EDT 06/12/2021 23:56 EDT Maeve Capps PA-C POINT OF CARE TEST DEANDRE RODRIGUES Final Result [facility] [address] [place] [address] * (ABNORMAL) COMPLETE BLOOD COUNT AND DIFFERENTIAL (06/12/2021 23:49 EDT) WBC 13.66(H) 4.00 - 12.40 K/cmm 06/13/2021 0:03 [facility] RBC 3.93 3.86 - 5.04 M/cmm 06/13/2021 0:03 [facility] Hemoglobin 11.9 11.6 - 15.2 gm/dL 06/13/2021 0:03 [facility] HCT 34.8(L) 34.9 - 44.4 % 06/13/2021 0:03 [facility] MCV 89 81 - 98 fl 06/13/2021 0:03 [facility] MCH 30.3 26.7 - 33.3 pg 06/13/2021 0:03 [facility] MCHC 34.2 32.1 - 35.9 gm/dL 06/13/2021 0:03 [facility] RDW-CV 12.6 <14.7 % 06/13/2021 0:03 [facility] RDW-SD 41.1 <50.4 fl 06/13/2021 0:03 [facility] PLT 271 141 - 377 K/cmm 06/13/2021 0:03 [facility] MPV 10.4 9.5 - 12.7 fl 06/13/2021 0:03 [facility] % Neutrophils 59.3 % 06/13/2021 0:03 [facility] % Lymphocytes 26.9 % 06/13/2021 0:03 [facility] % Monocytes 7.8 % 06/13/2021 0:03 [facility] % Eosinophils 4.8 % 06/13/2021 0:03 [facility] % Basophils 0.7 % 06/13/2021 0:03 [facility] % Immature Grans 0.5 % 06/13/20 0:03 [facility] Absolute Neutrophils 8.10 2.20 - 8.85 K/cmm 06/13/2021 0:03 [facility] Absolute Lymphocytes 3.67(H) 1.09 - 3.30 K/cmm 06/13/2021 0:03 [facility] Absolute Monocytes 1.07(H) 0.10 - 0.80 K/cmm 06/13/2021 0:03 [facility] Absolute Eosinophils 0.65(H) 0.03 - 0.61 K/cmm 06/13/2021 0:03 EDT [facility] ABS Basophils 0.10 0.01 - 0.11 K/cmm 06/13/2021 0:03 EDT [facility] Absolute Immature Grans 0.07(H) 0.00 - 0.06 K/cmm 06/13/2021 0:03 EDT [facility] Type of Differential: Auto 06/13/2021 0:03 EDT [facility] Blood VENOUS BLOOD / Unknown Venipuncture / Unknown 06/12/2021 23:49 EDT 06/12/2021 23:52 EDT Maeve Roe-Shyam PACKAGES & DNA PROBE OR DERABLES Final Result Performing Organization Address City/State/[facility] Co de Phone Number [facility] [address] [place] [address] documented in this encounter Visit Diagnoses Diagnosis Suprapubic pain- Primary Abdominal pain, other specified site Periumbilical pain Abdominal pain, periumbilic documented in this encounter Administered Medications Inactive Administered Medications - up to 3 most recent administrations Medication Order MAR Action Action Date Dose Rate Site acetaminophen (TYLENOL) 500 mg tablet 1 dose, Starting on Sat06/12/21 at 2355, Until Sat06/13/21 at 0001 acetaminophen (TYLENOL) tablet 1,000 mg 1,000 mg, oral, NOW X1, 1 dose, On Sat06/12/21 at 2345, STAT Given 06/13/2021 0:01 EDT 1,000 mg aluminum & magnesium hydroxide-simethicone (MYLANTA-DS) 400-400-40 mg/5 mL suspension 15 mL 15 mL, oral, NOW X1, 1 dose, On Sat06/13/21 at 0415, STAT Given 06/13/2021 4:07 EDT 15 mL sodium chloride 0.9 % BOLUS 1,000 mL 1,000 mL, intravenous, NOW X1, 1 dose, On Sat06/13/21 at 0100, STAT New Bag 06/13/2021 0:30 EDT 1,000 mL documented in this encounter Active and Recently Administered Medications Times are shown in EDT. Scheduled Medication Order 06/11/2021 06/12/2021 06/13/2021 acetaminophen (TYLENOL) tablet 1,000 mg (COMPLETED) 1,000 mg, oral, NOW X1, 1 dose, On Sat06/12/21 at 2345, STAT 0001 (Given - Provid er: Nikki Mead, CHARLY) aluminum & magnesium hydroxide-simethicone (MYLANTA-DS) 400-400-40 mg/5 mL suspension 15 mL (COMPLETED) 15 mL, oral, NOW X1, 1 dose, On Sat06/13/21 at 0415, STAT 0407 (Given - Provid er: Rehana Luna RN) sodium chloride 0.9 % BOLUS 1,000 mL (COMPLETED) 1,000 mL, intravenous, NOW X1, 1 dose, On Sat06/13/21 at 0100, STAT 0030 (New Bag - Prov ider: Nikki Mead RN)0155 (Completed - Provider: Nikki Mead RN) documented in this encounter 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
--- OUTSIDE RECORDS SUMMARY | 2024-10-26 18:54 | XMS_ITS | Encounter Summary ---
Author Organization [facility] Address [address] [place] [address] Care Team Providers Care Surface Logging Systems Logger Name Role Phone Grace Raya GARLAND MAKER Primary Care Provider [phone] Reason for Referral * Radiology Services (Routine/Next Available) - Closed Specialty Diagnoses / Procedures Referred By Contac t Referred To Contact Diagnoses Breast mass Procedures US BREAST LIMITED RIGHT Grace Raya, [address] [place] [address] Phone: tel: fax: [facility] Referral ID Status Reason Start Date Expiration Date Visits Re quested Visits Authorized [id number] Closed 10/19/2021 1 1 Reason for Visit * Radiology Services (Routine/Next Available) - Closed Specialty Diagnoses / Procedures Referred By Navdeep olvera Referred To Contact Diagnoses Breast mass Procedures US BREAST LIMITED RIGHT Grace Raya, [address] [place] [address] Phone: tel: fax: [facility] Referral ID Status Reason Start Date Expiration Date Visits Re quested Visits Authorized [id number] Closed 10/19/2021 1 1 Encounter Details Date Type Department Care Team (Latest Contact Info) Description 10/30/2021 9:00 EST - 10/30/2021 23:59 EST Hospital Encounter [facility] Breast Imaging Ultrasound - [address] [address] Breast mass Discharge Disposition: Home or Self Care Social [...] have Coronavirus / COVID-19? No / Unsure 10/30/2021 9:02 EST documented as of this encounter Functional [...] Code Departure Means Destination Home or Self Long-Term documented in this encounter Plan of Treatment Upcoming Encounters Date Type Department Care Team (Late st Contact Info) Description 01/28/2025 8:30 EDT Office Visit [facility] Rheumatology [address] [place] [address] Dena Stephenson MD [address] [facility] [address] [place] [address] documented as of this encounter Procedures Procedure Name Priority Date/Time Associated Diagnosis Comments US BREAST LIMITED RIGHT Routine 10/30/2021 9:31 EST Breast mass documented in this encounter Results * US BREAST LIMITED RIGHT (10/30/2021 9:31 EST) Anatomical Region Laterality Modality Breast Right Ultrasound 10/30/2021 9:45 EST Narrative 10/30/2021 9:45 EST US BREAST LIMITED RIGHT ??10/30/2021 9:00 AM Signs and Symptoms/Comments: New breast mass at 3:00, 5 cm from the nipple. Comparison: None. Technique: Target grayscale and color Doppler ultrasound imaging of the right breast from 2:00-4:00 in the region of palpable lump was performed. Findings: RIGHT BREAST ULTRASOUND: There is no sonographic correlate to the palpable lump. No suspicious solid or cystic mass is present. No abnormality in the imaged portions of the right breast. IMPRESSION RIGHT BREAST: BI-RADS 1: Negative. RECOMMENDATIONS: Further management of the area of palpable lump, including any decision for biopsy, should be based on the clinical assessment. Results and recommendations were discussed with the patient by the career coordinator at the time of the exam. OVERALL BI-RADS ASSESSMENT: BI-RADS 1: Negative. These results will be communicated to your patient via a lay letter from Radiology. I have personally reviewed the images and the above interpretation and agree with the findings. us Grace Raya NP IMG US ORDERABLES Final Resul t documented in this encounter Visit Diagnoses Diagnosis Breast mass Lump or mass in breast documented in this encounter Care Teams Surface Logging Systems Logger Relationship Specialty Start Date End Date Grace Raya, GARLAND MAKER [address] [place] [address] PCP - General 05/19/20 documented as of this encounter
--- OUTSIDE RECORDS SUMMARY | 2024-10-26 18:54 | XMS_ITS | Encounter Summary ---
Author Organization [facility] Address [address] [place] [address] Care Team Providers Care Pick Up Man Name Role Phone Julian Rayai Tessy COMPUTER FORWARDING SYSTEM MARKUP CLERK Primary Care Provider Encounter Details Date Type Department Care Team (Latest Contact Info) Description 07/01/2022 Travel Social History Tobacco Use Types Packs/Day [...] suspected to have Coronavirus/COVID-19? No / Unsure 07/01/2022 22:54 EDT documented as of this encounter Functional Status [...] Info) Description 01/28/2025 8:30 EDT Office Visit [facility] Rheumatology [address] [place] [phone] Dena Stephenson MD [address] [facility] [address] [place] [phone] documented as of this encounter Visit Diagnoses Not on filedocumented in this encounter Care Teams Pick Up Man Relationship Specialty Start Date End Date Grace Raya NP [address] [place] [address] PCP - General 05/19/20 documented as of this encounter
--- OUTSIDE RECORDS SUMMARY | 2024-10-26 18:54 | XMS_ITS | Encounter Summary ---
Author Organization [facility] Address [address] [place] [address] Care Team Providers Care Relay Shop Supervisor Name Role Phone Julian Rayai Tessy SHOP GIRL Primary Care Provider [phone] Encounter Details Date Type Department Care Team (Latest Contact Info) Description 08/05/2022 Travel Social History Tobacco Use Types Packs/Day [...] suspected to have Coronavirus/COVID-19? No / Unsure 08/05/2022 16:52 EDT documented as of this encounter Functional [...] Info) Description 01/28/2025 8:30 EDT Office Visit [facility] Rheumatology [address] [place] [phone] Dena Stephenson MD [address] [facility] [address] [place] [phone] documented as of this encounter Visit Diagnoses Not on filedocumented in this encounter Care Teams Relay Shop Supervisor Relationship Specialty Start Date End Date Grace Raya NP [address] [place] [address] PCP - General 05/19/20 documented as of this encounter
--- OUTSIDE RECORDS SUMMARY | 2024-10-26 18:54 | XMS_ITS | Encounter Summary ---
Author Organization [facility] Address [address] [place] [address] Care Team Providers Care Service Planner Name Role Phone Grace Raya CAN LABELER Primary Care Provider [phone] Reason for Visit * Reason Onset Date Comments Appointment Related 10/19/2021 Encounter Details Date Type Department Care Team ([facility] Contact Info) Description 10/19/2021 Telephone [facility] Breast Imaging Mammography - [facility] [address] [place], [place] [phone] Jen Vega Appointment Related Social History Tobacco Use Types [...] encounter Miscellaneous Notes * Telephone Encounter - Jen Vega - 10/19/2021 1432 EST LM for pt to call back to schedule: - u/s limited right breast documented in this encounter Plan of Treatment Upcoming Encounters Date Type Department Care Team (Late st Contact Info) Description 01/28/2025 8:30 EDT Office Visit [facility] Rheumatology [address] [place], [place] [phone] Dena Stephenson MD [address] [facility] [address] [place] [phone] documented as of this encounter Visit Diagnoses Not on filedocumented in this encounter Care Teams Service Planner Relationship Specialty Start Date End Date Grace Raya NP [address] [place] [address] PCP - General 05/19/20 documented as of this encounter
--- OUTSIDE RECORDS SUMMARY | 2024-10-26 18:54 | XMS_ITS | Encounter Summary ---
Author Organization [facility] Address [address] [place] [address] Care Team Providers Care Bead Builder Name Role Phone ElverGrace Tessy AGRICULTURAL RESEARCHER Primary Care Provider [phone] Reason for Visit * Reason Comments Emesis Pt presents to the E D with vomiting and diarrheafter eating yi food at 13:30 today. Pt is vomiting in triage. Pt sister states the patient has had abd pain intermittently month ago Encounter Details Date Type Department Care Team (Late st Contact Info) Description 08/05/2022 16:52 EDT - 08/05/2022 23:13 EDT Emergency [facility] Emergency Department - [address] [address] Kendall Yu MD [address] [place] [address] Cannabinoid hyperemesis syndrome (Primary Dx); Non-intractable vomiting with nausea, unspecified vomiting type; Diarrhea, unspecified type Discharge Disposition: Home or Self Care Social [...] 16:52 EDT documented as of this encounter Last Filed Vital Signs Vital Sign Reading Time Taken Comments Blood Pressure 124/77 08/05/2022 2214 EDT Pulse 84 08/05/2022 1654 EDT Temperature 37.4 ??C (99.4 ??F) 08/05/2022 2214 EDT Respiratory Rate 16 08/05/2022 2214 EDT Oxygen Saturation 99% 08/05/2022 1654 EDT Inhaled Oxygen Concentration - - Weight [...] this encounter Discharge Instructions * Discharge Instructions* Kendall Yu MD - 08/05/2022 18:08 EDT Please contact your primary care doctor during the next business day. It is very important that youmention you were evaluated in the emergency department, and please mention that we would like you to follow-up in urgent fashion. You should discuss your signs and symptoms, and please let the primary physician know how you are improving. If you develop any symptoms that are worsening, or anything t hat you find highly concerning or distressing and seek reevaluation, please return to the emergencydepartment. We wish you the best with your follow-up care! * Attachments The following attachments cannot be sent through Care Everywhere. * Cannabinoid Hyperemesis Syndrome (Montenegrin) * Cannabis Use Disorder: General Info (Montenegrin) documented in this encounter Medications at Time [...] Code Departure Means Destination Home or Self Snf documented in this encounter ED Notes * Tanner Dubose, CHARLY - 08/05/2022 8757 EDT Pt dc'd. Patient continues to be sleepy but rousable and conversant when awake. VSS. AVS reviewed with sister present including education on hyperemesis and ondansetron. Pt given 4 mg IV zofran priorto DC, also given zofran started pack. PIV removed. Pt left Ed in WC pushed by sister. * Tanner Dubose RN - 08/05/2022 2238 EDT Pt sleeping, but rousable, A&Ox3 and conversant. Pt notified that she has dc orders, calling toset up warp picker with family. Ambulated with patient and after she reported return of nausea. MD notified, IV zofran ordered. * Tanner Dubose RN - 08/05/20222028 EDT Pt In bed, A&OX3, continues with n/v producing thin green yellow emesis. 5mg droperidol given. * Tanner Dubose RN - 08/05/2022 1915 EDT Assumed care. Pt in bed, emesis continues post Reglan administration. * Le Montes MD - 08/05/2022 1708 EDT Emergency Department Visit This documentation is recorded by Isabelle Alexis acting as Scribe under the direction and presence of Kendall Yu MD and Le Montes MD. Kendall Yu MD and Le Montes MD: We personally performed the services recorded by the scribe in our presence. We confirm the scribe's documentation has been reviewed by us to accurately and completely record my work, treatment, procedures, and medical decision making. Assessment and ED Course Relevant Data as of Aug 05 2227 Sun Aug 05, 2022 1742 Patient is a 22-year-old female with a history of alcohol use, cannabis use, prior pyelonephritis who presents to the emergency department with vomiting and diarrhea. On initial evaluation she is uncomfortable appearing and vital signs are notable for mild hypertension. Physical exam demonstrates the patient to is moaning and writhing, abdomen is soft and nontender. Differential diagnosis includes hyperemesis syndrome, gastroenteritis, ectopic , UTI, pyelonephritis, biliary disease, pancreatitis, appendicitis. Further evaluation includes EKG, laboratory studies. The patient was given 4 mg of Zofran, 2.5 mg of droperidol, and a liter of lactated Ringer's. On my evaluation, the patient has no abdominal tenderness, making pancreatitis and appendicitis less likely. [EG] 175 EKG demonstrates sinus rhythm, rate 69, normal axis, normal intervals, specifically a QTC of around 470, no acute ST or T wave abnormalities. [EG] 1820 Laboratory evaluation demonstrates leukocytosis but no anemia. Electrolytes and renal functionwithin normal limits. Patient does have an anion gap metabolic acidosis, which is most likely due to starvation ketosis in the setting of vomiting. Glucose is mildly elevated at 162, but I would not expect this to cause a first presentation of DKA. [EG] 2012 Patient continues to have emesis and was given 10 mg of metoclopramide. [EG] 2012 On reevaluation, the patient's symptoms have somewhat improved, but she does still continue tohave emesis. She was given 5 mg of droperidol. [EG] 2130 On reevaluation, the patient has had no further emesis. She is feeling improved and comfortable going home. Given her reassuring evaluation and the improvement in her symptoms, is felt she was safe and stable for discharge home. She was given a starter pack of Zofran and advised to follow-up with her primary care provider if her symptoms do not improve. She and her sister were given strict ED return precautions. The patient voiced their understanding and was agreeable to the plan. They were stable and well-appearing at the time of discharge. [EG] Relevant Data User Index [EG] Le Montes MD Prior to discharge usual and customary precautions were reviewed with the patient and/or family including follow-up instructions and reasons to return to the Emergency Department if condition worsens, does not improve as expected, or other new concerns arise. Final diagnoses: Cannabinoid hyperemesis syndrome Non-intractable vomiting with nausea, unspecified vomiting type Diarrhea, unspecified type Disposition: Discharged Chief complaint: Emesis FLAKO Lyman is a 22 y.o. female with a history of asthma, alcohol abuse, migraine, asthma who presents to the ED for assessment of emesis. The patient reports that today for lunch she ate at a [employer] food buffet. She states that around 1400 today, she began having nausea, vomiting, diarrhea, and intense upper abdominal cramping. She notes some shortness of breath due to vomiting so much. She denies blood in her emesis or diarrhea, or urinary symptoms. The patient does note she had some nauseaand vomiting earlier this week. She reports daily marijuana use, vape use, and occasional alcohol use. She does note occasional recreational drug use but describes this as less frequent. History was provided by: Patient, Medical records Patient's pertinent PMH, FH, SH were reviewed and edited as necessary. ROS A 10-point review of systems was performed. The patient answered negative to all questions with theexceptions of those explicitly detailed as positives in the HPI. Pertinent negatives are also explicitly stated. Physical Exam A medical screening exam was performed. Physical Exam Vital Signs Temp: 37.4 ??C (99.4 ??F) Pulse: 84 Resp: 16 SpO2: 99 % BP: 124/77 BP MAP: 91 mm Hg BP Device: BP Machine BP Patient Position: Supine BP Cuff Location: Left arm O2 Device: None (Room air) Nursing notes and vital signs were reviewed. Constitutional: Crying, moaning, rolling around in bed HEENT: Normocephalic, atraumatic. Moist oral mucosa without apparent lesions Eye: PERRL, EOMI, clear conjunctivae Neck: Full ROM, no cervical LAD Heart: RRR w/o MRG Lungs: No respiratory distress. Clear to auscultation b/l w/o W/R/R Abdomen: Soft NT/ND, +BS Skin: No overt rashes or lesions on exposed skin Extremities: Moving spontaneously, warm, radial/DP/PT pulses 2+ b/l. Neuro: CN grossly intact, normal speech, gait wnl, strength and sensation to light touch wnl in UE/LE b/l, no pronator drift, no dysmetria on FNF. Psych: Normal affect, no overt thought disorder An EKG was obtained and independently interpreted. Laboratory data was reviewed and independently interpreted. Procedures Procedures LE MONTES MD 08/05/2022 22:44 Cosigned by Kendall Yu MD at 08/06/2022 21:14 EDT Associated attestation - Kendall Yu MD - 08/06/2022 2114 EDT I, Kendall Yu MD, performed a history and exam of this patient and discussed the case with the resident. I have reviewed and edited this note, and the documentation is consistent with my findings, assessment and plan. I fully participated in the medical decision making. documented in this encounter Plan of Treatment Upcoming Encounters Date Type Department Care Team (Late st Contact Info) Description 01/28/2025 8:30 EDT Office Visit [facility] Rheumatology [address] [place] [address] Dena Stephenson MD [address] [place] [address] [address] [place] [address] documented as of this encounter Procedures Procedure Name Priority Date/Time Associated Diagnosis Comments ECG REPORT - SCANNED 08/17/2022 17:10 EDT COMPLETE BLOOD COUNT AND DIFFERENTIAL STAT 08/05/2022 17:48 EDT QUANT BETA HCG, STAT Add-on 08/05/2022 17:48 EDT COMPREHENSIVE METABOLIC PANEL (CMP) STAT 08/05/2022 17:48 EDT EKG 12-LEAD STAT 08/05/2022 17:45 EDT documented in this encounter Results * ECG REPORT - SCANNED (08/17/2022 17:10 EDT) 08/17/2022 17:1 0 EDT us Scan 2 Hatchery Worker PROCEDURE/MINOR SURGICAL OR DERABLES Final Result * QUANT BETA HCG, (08/05/2022 17:48 EDT) Beta HCG Quant, <5 <5 mIU/mL 08/05/2022 22:19 [facility] Comment: NOTE: : Negative: Less than 5mIU/mL Indeterminant: Between 5 and 25 mIU/mL, recommend repeat testing in 48 hours Positive: Greater than 25 mIU/mL The results of this assay can be falsely lowered due to the consumption of Biotin. Blood VENOUS BLOOD / Unknown Venipuncture / Unknown 08/05/2022 17:48 EDT 08/05/2022 17:52 EDT Le Montes MD CHEMISTRY & BLOOD GAS ORDERABLES Final Result [facility] [address] [place] [address] * (ABNORMAL) COMPREHENSIVE METABOLIC PANEL (CMP) (08/05/2022 17:48 EDT) Pathologist [facility] Sodium 141 136 - 145 mmol/L 08/05/2022 18:12 [facility] Potassium 3.8 3.5 - 5.0 mmol/L 08/05/2022 18:12 [facility] Chloride 105 96 - 110 mmol/L 08/05/2022 18:12 [facility] CO2 Total 16(L) 22 - 32 mmol/L 08/05/2022 18:12 [facility] Glucose 162(H) 70 - 100 mg/dL 08/05/2022 18:12 [facility] BUN 10 10 - 26 mg/dL 08/05/2022 18:12 [facility] Creatinine 0.60 0.52 - 1.04 mg/dL 08/05/2022 18:12 [facility] eGFR 130 >60 mL/min/1.7 3m2 08/05/2022 18:12 [facility] Total Protein 8.3(H) 6.3 - 8.2 g/dL 08/05/2022 18:12 [facility] Albumin 4.8 3.4 - 4.9 g/dL 08/05/2022 18:12 [facility] Alkaline Phosphatase 75 38 - 126 U/L 08/05/2022 18:12 [facility] AST 26 15 - 46 U/L 08/05/2022 18:12 [facility] ALT 18 <35 U/L 08/05/2022 18:12 [facility] Bilirubin, Total 0.8 <1.4 mg/dL 08/05/20 18:12 [facility] Calcium 9.7 8.5 - 10.5 mg/dL 08/05/2022 18:12 [facility] Albumin/Globulin Ratio 1.4 1.0 - 2.5 08/05/2022 18:12 [facility] Anion Gap 20(H) 5 - 14 08/05/2022 18:12 [facility] Blood VENOUS BLOOD / Unknown Venipuncture / Unknown 08/05/2022 17:48 EDT 08/05/2022 17:52 EDT Kendall Yu MD CHEMISTRY & BLOOD GAS ORDERA BLES Final Result [facility] [address] [place] [address] * (ABNORMAL) COMPLETE BLOOD COUNT AND DIFFERENTIAL (08/05/2022 17:48 EDT) WBC 18.52(H) 4.00 - 12.40 K/cmm 08/05/2022 18:18 [facility] RBC 4.21 3.86 - 5.04 M/cmm 08/05/2022 18:18 [facility] Hemoglobin 12.7 11.6 - 15.2 gm/dL 08/05/2022 18:18 [facility] HCT 35.9 34.9 - 44.4 % 08/05/2022 18:18 [facility] MCV 85 81 - 98 fl 08/05/2022 18:18 [facility] MCH 30.2 26.7 - 33.3 pg 08/05/2022 18:18 [facility] MCHC 35.4 32.1 - 35.9 gm/dL 08/05/2022 18:18 [facility] RDW-CV 12.1 <14.7 % 08/05/2022 18:18 [facility] RDW-SD 37.4 <50.4 fl 08/05/2022 18:18 [facility] PLT 298 141 - 377 K/cmm 08/05/2022 18:18 [facility] MPV 10.9 9.5 - 12.7 fl 08/05/2022 18:18 [facility] % Neutrophils 86.3 % 08/05/2022 18:18 [facility] % Lymphocytes 7.8 % 08/05/2022 18:18 [facility] % Monocytes 4.1 % 08/05/2022 18:18 [facility] % Eosinophils 0.4 % 08/05/2022 18:18 [facility] % Basophils 0.5 % 08/05/2022 18:18 [facility] % Immature Grans 0.9 % 08/05/20 18:18 [facility] Absolute Neutrophils 15.98(H) 2.20 - 8.85 K/cmm 08/05/2022 18:18 [facility] Absolute Lymphocytes 1.44 1.09 - 3.30 K/cmm 08/05/2022 18:18 [facility] Absolute Monocytes 0.76 0.10 - 0.80 K/cmm 08/05/2022 18:18 [facility] Absolute Eosinophils 0.08 0.03 - 0.61 K/cmm 08/05/2022 18:18 [facility] ABS Basophils 0.10 0.01 - 0.11 K/cmm 08/05/2022 18:18 [facility] Absolute Immature Grans 0.16(H) 0.00 - 0.06 K/cmm 08/05/2022 18:18 EDT [facility] Type of Differential: Auto 08/05/2022 18:18 EDT [facility] Blood VENOUS BLOOD / Unknown Venipuncture / Unknown 08/05/2022 17:48 EDT 08/05/2022 17:52 EDT us Kendall Yu MD PACKAGES & DNA PROBE ORDERAB LES Final Result [facility] [address] [place] [address] * EKG 12-LEAD (08/05/2022 17:45 EDT) 08/05/2022 17:4 5 EDT Narrative [facility] EKG - 08/17/2022 16:17 EDT ?[facility] Emergency ? Test Date: ?2022-08-05 Pat Name: ? IRIS ESMER ? Department: ?? ED ? Room: ? GT23 Gender: ? Female ? Promotions Producer: ?? [id number] : ?2000 ? Requested By: ROMMEL Box Order Number: [id number] ? Alicia LINCOLN: ?? MAYANK MUNIZ MD ? Measurements Intervals ?[place] ? Rate: ? 69 ? P: ?32 WY: ? 100 ?QRS: ?76 QRSD: ? 77 ? T: ?59 QT: ? 438 ? QTc: ?470 ? Interpretive Statements SINUS RHYTHM WITH MARKED SINUS ARRHYTHMIA WITH SHORT WY INTERVAL No previous ECG available for comparison I have reviewed the tracing and have either agreed or edited the findings in this report. Edited by NAYELI CHÁVEZ MD on 08-06-2022 16:16:27 EDT. I reviewed the tracing and have either agreed or edited the findings in this report. Electronically Signed On 08-17-2022 16:17:49 EDT by MAYANK MUNIZ MD. Procedure Note Mayank Muniz MD - 08/17/2022 [facility] Emergency Test Date: 2022-08-05 Pat Name: ANDIE LYMAN Department: ED Room: [facility] Gender: Female Promotions Producer: [id number] : 2000 Requested By: ROMMEL Box Order Number: [id number] Reading MD: MAYANK MUNIZ MD Measurements Intervals [place] Rate: 69 P: 32 WY: 100 QRS: 76 QRSD: 77 T: 59 QT: 438 QTc: 470 Interpretive Statements SINUS RHYTHM WITH MARKED SINUS ARRHYTHMIA WITH SHORT WY INTERVAL No previous ECG available for comparison I have reviewed the tracing and have either agreed or edited the findingsin this report. Edited by NAYELI CHÁVEZ MD on 08-06-2022 16:16:27 EDT. I reviewed the tracing and have either agreed or edited the findings inthis report. Electronically Signed On 08-17-2022 16:17:49 EDT by MAYANK JACOB. Kendall Yu MD CARDIAC ECG ORDERABLES Final Result [facility] EKG documented in this encounter Visit Diagnoses Diagnosis Cannabinoid hyperemesis syndrome- Primary Non-intractable vomiting with nausea, unspecified vomiting type Diarrhea, unspecified type documented in this encounter Administered Medications Inactive Administered Medications - up to 3 most recent administrations Medication Order MAR Action Action Date Dose Rate Site droperidoL (INAPSINE) injection 2.5 mg 2.5 mg, intravenous, NOW X1, 1 dose, On 08/05/22 at 1730, STAT Given 08/05/2022 17:56 EDT 2.5 mg droperidoL (INAPSINE) injection 5 mg 5 mg, intravenous, NOW X1, 1 dose, On 08/05/22 at 2015, STAT Given 08/05/2022 20:25 EDT 5 mg lactated ringers BOLUS 1,000 mL 1,000 mL, intravenous, NOW X1, 1 dose, On 08/05/22 at 1700, STAT New Bag 08/05/2022 17:09 EDT 1,000 mL metoclopramide (REGLAN) injection 10 mg 10 mg, intravenous, NOW X1, 1 dose, On 08/05/22 at 1830, STAT Given 08/05/2022 18:35 EDT 10 mg ondansetron (PF) (ZOFRAN) injection 4 mg 4 mg, intravenous, NOW X1, 1 dose, On 08/05/22 at 1700, STAT Given 08/05/2022 17:09 EDT 4 mg ondansetron (PF) (ZOFRAN) injection 4 mg 4 mg, intravenous, NOW X1, 1 dose, On 08/05/22 at 2300, STAT Given 08/05/2022 22:58 EDT 4 mg ondansetron 4 mg ODT tab STARTER PACK 1 Package, oral, NOW X1, 1 dose, On 08/05/22 at 2145, STAT Given 08/05/2022 23:04 EDT 1 Package documented in this encounter Active and Recently Administered Medications Times are shown in EDT. Scheduled Medication Order 08/03/2022 08/04/2022 08/05/2022 droperidoL (INAPSINE) injection 2.5 mg (COMPLETED) 2.5 mg, intravenous, NOW X1, 1 dose, On 08/05/22 at 1730, STAT 1756 (Given - Provid er: Love Sorenson RN) droperidoL (INAPSINE) injection 5 mg (COMPLETED) 5 mg, intravenous, NOW X1, 1 dose, On 08/05/22 at 2015, STAT 2024 (Given - Provid er: Tanner Dubose RN) lactated ringers BOLUS 1,000 mL (COMPLETED) 1,000 mL, intravenous, NOW X1, 1 dose, On 08/05/22 at 1700, STAT 1709 (New Bag - Prov ider: Pilar Deluca RN) metoclopramide (REGLAN) injection 10 mg (COMPLETED) 10 mg, intravenous, NOW X1, 1 dose, On 08/05/22 at 1830, STAT 1835 (Given - Provid er: Love Sorenson RN) ondansetron (PF) (ZOFRAN) injection 4 mg (COMPLETED) 4 mg, intravenous, NOW X1, 1 dose, On 08/05/22 at 1700, STAT 1709 (Given - Provid er: Pilar Deluca RN) ondansetron (PF) (ZOFRAN) injection 4 mg (COMPLETED) 4 mg, intravenous, NOW X1, 1 dose, On 08/05/22 at 2300, STAT 2258 (Given - Provid er: Tanner Dubose RN) ondansetron 4 mg ODT tab STARTER PACK (COMPLETED) 1 Package, oral, NOW X1, 1 dose, On 08/05/22 at 2145, STAT 2304 (Given - Provid er: Tanner Dubose RN) documented in this encounter Care Teams Bead Builder Relationship Specialty Start Date End Date Grace Raya, AGRICULTURAL RESEARCHER [address] [place] [address] PCP - General 05/19/20 documented as of this encounter
--- OUTSIDE RECORDS SUMMARY | 2024-10-26 18:54 | XMS_ITS | Encounter Summary ---
Author Organization [facility] Address [address] [place] [address] Care Team Providers Care Prison Librarian Name Role Phone Grace Raya NP Primary Care Provider [phone] Encounter Details Date Type Department Care Team (Late Contact Info) Description 05/24/2020 Orders Only [facility] Rheumatology [address] [place] [address] Lucila Alejo RN Pain in joint involving pelvic region and thigh, unspecified laterality (Primary Dx) Social History Tobacco Use Types Packs/Day Years Used Date Smoking Tobacco: Never Smokeless Tobacco: Never Comments Unknown Sex and Gender Information Value Date Recorded Sex Assigned at Not on file Legal Sex Female 18:34 EST Gender Identity Female 02/07/2020 8:04 EDT Sexual Orientation Not on file documented as of this encounter Plan of Treatment Upcoming Encounters Date Type Department Care Team (Late Contact Info) Description 01/28/2025 8:30 EDT Office Visit [facility] Rheumatology [address] [place] [address] Dena Stephenson MD [address] [place] [address] [place] [address] documented as of this encounter Visit Diagnoses Diagnosis Pain in joint involving pelvic region and thigh, unspecified laterality- Primary documented in this encounter Care Teams Prison Librarian Relationship Specialty Start Date End Date Grace Raya, FILES SUPERVISOR [address] [place] [address] PCP - General 05/19/20 documented as of this encounter
--- OUTSIDE RECORDS SUMMARY | 2024-10-26 18:54 | XMS_ITS | Encounter Summary ---
Author Organization [facility] Address [address] [place] [address] Care Team Providers Care Travel Accommodation Inspector Name Role Phone Julian Rayai Tessy SUPERVISOR TUMBLERS Primary Care Provider [phone] Encounter Details Date Type Department Care Team (Latest Contact Info) Description 06/12/2021 Travel Social History Tobacco Use Types Packs/Day [...] 21:06 EDT documented as of this encounter Functional [...] Info) Description 01/28/2025 8:30 EDT Office Visit [facility] Rheumatology [address] [place] [id number] Dena Stephenson MD [address] [place] [address] [address] [place] [phone] documented as of this encounter Visit Diagnoses Not on filedocumented in this encounter Care Teams Travel Accommodation Inspector Relationship Specialty Start Date End Date Grace Raya NP [address] [place] [address] PCP - General 05/19/20 documented as of this encounter
--- OUTSIDE RECORDS SUMMARY | 2024-10-26 18:54 | XMS_ITS | Encounter Summary ---
Author Organization [facility] Address [address] [place] [address] Care Team Providers Care Sheet Taker Name Role Phone ElverGrace Tessy COLLECTIONS SPECIALIST Primary Care Provider [phone] Encounter Details Date Type Department Care Team ([facility] Contact Info) Description 03/22/2021 Abstract [facility] Dermatology [address] [facility], [place] [address] Breana Plummer MD [address] [facility] [place] [address] Social History Tobacco Use Types [...] in this encounter Progress Notes * Claudia Bower MA - 03/22/2021 1637 EDT Chart abstractions taken from referral to dermatology. Referral was sent from [facility] for Alopecia. documented in this encounter Plan of Treatment Upcoming Encounters Date Type Department Care Team (Late st Contact Info) Description 01/28/2025 8:30 EDT Office Visit [facility] Rheumatology [address] [place], [place] [id number] Dena Stephenson MD [address] [facility] [address] [place] [phone] documented as of this encounter Visit Diagnoses Not on filedocumented in this encounter Historical Medications * This list may reflect changes made after this encounter. triamcinolone (ARISTOCORT) 0.5 % cream Apply topically 2 times daily. use thin layer, as needed triamcinolone (KENALOG) 0.1 % cream Apply topically 2 times daily. 3 inhalational spacing device (AEROCHAMBER MV)Indications:u se with proaire HFA Inhale as directed. 3 added in this encounter Care Teams Sheet Taker Relationship Specialty Start Date End Date rGace Raya NP [address] [place] [address] PCP - General 05/19/20 documented as of this encounter
--- OUTSIDE RECORDS SUMMARY | 2024-10-26 18:54 | XMS_ITS | Encounter Summary ---
Author Organization [facility] Address [address] [place] [address] Care Team Providers Care Pocketed Spring Machine Operator Name Role Phone Julian Rayai Tessy EXECUTIVE DIRECTOR CONTRACT SHOP Primary Care Provider [phone] Reason for Visit * (Routine) - Receiving Office to Obtain Authorization Specialty Diagnoses / Procedures Referred By Navdeep olvera Referred To Contact Procedures MR OUTSIDE IMAGES MSK Unknown, Provider, MD Referral ID Status Reason Start Date Expiration Date Visits Requested Visits Authorized [id number] Receiving Office to Obtain Authorization 02/21/2021 1 1 Encounter Details Date Type Department Care Team (Latest Contact Info) Description 06/30/2020 - 06/30/2020 23:59 EDT Hospital Encounter [facility] Secondary [place] Discharge Disposition: Home or Self Care Social [...] on file documented as of this encounter Medications at Time of Discharge albuterol 90 mcg/actuation inhaler citalopram (CELEXA) 20 mg tablet TAKE 1.5 TABLETS BY MOUTH EVERY DAY 12/17/2019 gabapentin (NEURONTIN) 100 mg capsule Take 3 Capsules by mouth daily. 3-4 times weekly 12/17/2019 4 levonorgestrel (MARIAN INTRAUTERINE) by intrauterine route. Put in 3 days ago. 3 metroNIDAZOLE (METROGEL) 0.75 % vaginal gelIndications:A cute vaginitis Place 37.5 mg vaginally at bedtime. 1 Tube 02/07/2020 0 documented as of this encounter Discharge Disposition Disposition Code Departure Means Destination Home or Self Care documented in this encounter Plan of Treatment Upcoming Encounters Date Type Department Care Team (Late st Contact Info) Description 01/28/2025 8:30 EDT Office Visit [facility] Rheumatology [address] [place] [address] Dena Stephenson MD [address] [facility] [address] [place] [address] documented as of this encounter Procedures Procedure Name Priority Date/Time Associated Diagnosis Comments MR OUTSIDE IMAGES MSK Routine 02/21/2021 9:09 EDT documented in this encounter Results * MR OUTSIDE IMAGES MSK (02/21/2021 9:09 EDT) Narrative 02/21/2021 9:09 EDT This is a non-reportable exam. us Provider Unknown MD SPARKS OTHER IMAGING ORDERABLES Final Result documented in this encounter Visit Diagnoses Not on filedocumented in this encounter Care Teams Pocketed Spring Machine Operator Relationship Specialty Start Date End Date Grace Raya NP [address] [place] [address] PCP - General 05/19/20 documented as of this encounter
--- OUTSIDE RECORDS SUMMARY | 2024-10-26 18:54 | XMS_ITS | Encounter Summary ---
Author Organization [facility] Address [address] [place] [address] Care Team Providers Care Perinatal Instructor Name Role Phone Elver Grace Tessy QUAHOGGER Primary Care Provider [phone] Reason for Visit * Reason Onset Date Comments Medication Management 08/15/2020 Encounter Details Date Type Department Care Team ([facility] Contact Info) Description 08/15/[address] [facility] [place] [address] [place], [place] [phone] Dena Stephenson MD [address] [facility] [address] [place] [address] Medication Management Social History Tobacco Use Types Packs/Day Years [...] 8:37 EDT documented as of this encounter Miscellaneous Notes * Telephone Encounter - Dena Stephenson MD - 08/16/2020 1433 EDT Ok thanks. Will discuss further at follow up at the end of the month. * Telephone Encounter - Cha Sims RN - 08/16/2020 1327 EDT I talked with Liudmila. She says that the nausea, stomach pain, headache and yellow sclera all have gone away since stopping Nabumetone. * Telephone Encounter - Cha Sims RN - 08/15/2020 1001 EDT Called patient to get more details and to see if she is feeling better since stopping Nabumetone but VM box not set up. Will await her return call. * Telephone Encounter - Nathaly Sigala - 08/15/2020 0833 EDT Liudmila left a message with [facility] yesterday: she stopped taking Nabumetone 4 days ago - nausea and stomach pains. Also noticed yellow eyes and bad headache. Please have MD call to discuss. documented in this encounter Plan of Treatment Upcoming Encounters Date Type Department Care Team (Late st Contact Info) Description 01/28/2025 8:30 EDT Office Visit [facility] Rheumatology [address] [place] [id number] Dena Stephenson MD [address] [place] [address] [address] [place] [address] documented as of this encounter Visit Diagnoses Not on filedocumented in this encounter Care Teams Perinatal Instructor Relationship Specialty Start Date End Date Grace Raya NP [address] [place], [place] [phone] PCP - General 05/19/20 documented as of this encounter
--- OUTSIDE RECORDS SUMMARY | 2024-10-26 18:54 | XMS_ITS | Encounter Summary ---
Author Organization [facility] Address [address] [place] [address] Care Team Providers Care State Tested Nursing Assistant Name Role Phone Grace Raya SUPERVISOR ACCOUNTS RECEIVABLE Primary Care Provider [phone] Encounter Details Date Type Department Care Team (Latest Contact Info) Description 10/10/2021 12:45 EST Phlebotomy Only [facility] [employer] [address] [place] [address] Exposure to COVID-19 virus; Myalgia; Runny nose Social History Tobacco Use Types Packs/Day Years [...] Description 01/28/2025 8:[address] [facility] Rheumatology [address] [place] [phone] Dena Stephenson MD [address] [place] [address] [place] [address] documented as of this encounter Procedures Procedure Name Priority Date/Time Associated Diagnosis Comments ZZCOVID-19 TEST [facility] PCR Today 10/10/2021 12:55 EST Exposure to COVID-19 virus Myalgia Runny nose COVID-19 TESTING Routine 10/10/2021 12:5 5 EST Exposure to COVID-19 virus Myalgia Runny nose documented in this encounter Results * COVID-19 TEST [facility] PCR (10/10/2021 12:55 EST) Swab ENTIRE NASOPHARYNX / Unknown Swab / Unknown 10/10/2021 12:55 EST 10/10/2021 12:55 EST us Jordan Ramsey MD MICROBIOLOGY - GENERAL ORDERABLES Final Result [facility] [address] [place] [address] * COVID-19 TESTING (10/10/2021 12:55 EST) COVID-19 rt-PCR Result Negative Negative 10/10/2021 18:21 EST [facility] Comment: This test has not been FDA cleared or approved. This test has been authorized by FDA under an EUA for use by authorized laboratories. This test has been authorized only for detection of nucleic acid from 2019-nCoV, not for any other viruses or pathogens. This test is only authorized for the duration of the declaration that circumstances exist justifying the authorization of emergency use of in vitro diagnostic tests for detection and/or diagnosis of 2019-nCoV under section 564(b)(1) of Act, 21 U.S.C ?? 360bbb-3(b) (1), unless the authorization is terminated or revoked sooner. Negative results do not preclude 2019-nCoV infection and should not be used as the sole basis for treatment or other patient management decisions. Negative results must be combined with clinical observations, patient history, and epidemiological information. Performed on the [employer] Fusion instrument Performing Lab [place] [facility] 10/10/2021 18:21 EST [facility] Swab ENTIRE NASOPHARYNX / Unknown Swab / Unknown 10/10/2021 12:55 EST 10/10/2021 12:55 EST Jordan Ramsey MD MICROBIOLOGY - GENERAL ORDERABLES Final Result [facility] [address] [place] [address] documented in this encounter Visit Diagnoses Diagnosis Exposure to COVID-19 virus Myalgia Mylagia and myositis, unspecified Runny nose Other diseases of nasal cavity and sinuses documented in this encounter Care Teams State Tested Nursing Assistant Relationship Specialty Start Date End Date Grace Raya, BRUCE [address] [place] [address] PCP - General 05/19/20 documented as of this encounter
--- OUTSIDE RECORDS SUMMARY | 2024-10-26 18:54 | XMS_ITS | Encounter Summary ---
Author Organization [facility] Address [address] [place] [address] Care Team Providers Care Society Reporter Name Role Phone ElverGrace Tessy NEWS CONTENT SPECIALIST Primary Care Provider [phone] Encounter Details Date Type Department Care Team (Late Contact Info) Description 07/06/2020 Lab Requisition [facility] Pathology & Laboratory Medicine - [facility] [address] [place] [address] Outr Resulting Lab, Provider Social History Tobacco Use Types Packs/Day Years [...] Info) Description 01/28/2025 8:30 EDT Office Visit [facility] Rheumatology [address] [place] [address] Dena Stephenson MD 130 [facility] [address] [place] [phone] documented as of this encounter Procedures Procedure Name Priority Date/Time Associated Diagnosis Comments CHLAMYDIA/N. GONORRHOEAE AMPLIFIED NUCLEIC ACID Routine 07/05/2020 16:45 EDT documented in this encounter Results * CHLAMYDIA/N. GONORRHOEAE AMPLIFIED RNA (07/05/2020 16:45 EDT) Neisseria gonorrhoeae Result Negative Negative 07/07/2020 15:25 EDT [facility] Chlamydia trachomatis Result Negative Negative 07/07/2020 15:25 EDT [facility] Swab ENTIRE WALL OF CERVIX / Unknown Swab / Unknown 07/05/2020 16:45 EDT 07/06/2020 18:14 EDT us Provider Outr Resulting Lab MICROBIOLOGY - GENER AL ORDERABLES Final Result Performing Organization Address City/State/[facility] Co de Phone Number [facility] [address] [place] [address] documented in this encounter Visit Diagnoses Not on filedocumented in this encounter Care Teams Society Reporter Relationship Specialty Start Date End Date Grace Raya, BRUCE [address] [place] [address] PCP - General 05/19/20 documented as of this encounter
--- OUTSIDE RECORDS SUMMARY | 2024-10-26 18:54 | XMS_ITS | Encounter Summary ---
Author Organization [facility] Address [address] [place] [address] Care Team Providers Care Merchandising Internship Name Role Phone ElverGrace Tessy IRRIGATION PUMP INSTALLER Primary Care Provider [phone] Encounter Details Date Type Department Care Team (Late Contact Info) Description 07/01/2020 Results Only Imaging [facility] Radiology Results [address] [place] [address] Dena Stephenson MD [address] [facility] [address] [place] [address] Social History Tobacco Use Types Packs/Day Years [...] on file documented as of this encounter Miscellaneous Notes * Result Encounter Note - Dena Stephenson MD - 07/01/2020 0861 EDT Findings to be discussed with Liudmila at follow up. documented in this encounter Plan of Treatment Upcoming Encounters Date Type Department Care Team (Late Contact Info) Description 01/28/2025 8:30 EDT Office Visit [facility] Rheumatology [address] [place] [address] Dena Stephenson MD [address] [facility] [address] [place] [phone] documented as of this encounter Procedures Procedure Name Priority Date/Time Associated Diagnosis Comments MR PELVIS WO CONTRAST 07/01/2020 8:46 EDT documented in this encounter Results * MR PELVIS WO CONTRAST (07/01/2020 8:46 EDT) Anatomical Region Laterality Modality Body, Pelvis Magnetic Resonan ce 07/01/2020 8:43 EDT Narrative 07/01/2020 8:46 EDT ? EXAM: MAGNETIC RESONANCE IMAGING/PELVIS W EX. D/ (1707) ? CLINICAL INFORMATION: ? M25.559 PAIN IN JOINT INVOLVING PELVIC REGION ? AND THIGH. BILATERAL SI JOINT PAIN W/ ? OF ? IMFLAMMATION ON PLAIN FILMS, BUT NOT DEFINITIVE. ? INDICATION: M25.559 PAIN IN JOINT INVOLVING PELVIC REGION, AND THIGH. ? BILATERAL SI JOINT PAIN W/ ? OF, IMFLAMMATION ON PLAIN FILMS, BUT NOT ? DEFINITIVE. PAIN IN JOINT INVOLVING PELVIC AND THIGH REGION ? TECHNIQUE: ??Multiplanar multisequence MRI of the pelvis was performed ? without contrast ? COMPARISON: Lumbar spine radiographs 08/12/2019. ? FINDINGS: The right sacral iliac joint demonstrates bilateral ? subchondral edema. There is subchondral sclerosis, particularly ? involving the iliac side of the joint. Multiple erosions are present. ? There is mild adjacent soft tissue edema along the anterior and ? superior margins of the joint. ? The contralateral left sacroiliac joint does not demonstrates trace ? bone marrow edema along the posterior superior margin of the sacral ? side of the joint with trace adjacent soft tissue edema (coronal ? series 8 image 13). There is mild sclerosis involving the iliac side ? of the joint. No discrete erosions are present on the left. ? No pelvic lymphadenopathy is detected. ? IMPRESSION: ? Findings of asymmetric sacroiliitis, right greater than left, most ? 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 The differential includes ? psoriatic arthritis, reactive arthritis, rheumatoid arthritis, ? ankylosing spondylitis, enteropathic arthritis and SAPHO. Infection ? should also be considered in the appropriate clinical context. ? REPORT SIGNED IN OTHER VENDOR SYSTEM 07/01/2020 ?Reported By: True Simons MD ? CC: ? Transcribed Date/Time: 07/01/2020 (0846) ? Senior Accounting Clerk: ? Printed Date/Time: 07/01/2020 (0846) ? PAGE 1 ? Signed Report ? Procedure Note True Simons MD - 07/01/2020 EXAM: MAGNETIC RESONANCE IMAGING/PELVIS W EX. D/ (1707) CLINICAL INFORMATION: M25.559 PAIN IN JOINT INVOLVING PELVIC REGION AND THIGH. BILATERAL SI JOINT PAIN W/ ? OF IMFLAMMATION ON PLAIN FILMS, BUT NOT DEFINITIVE. INDICATION: M25.559 PAIN IN JOINT INVOLVING PELVIC REGION, ANDTHIGH. BILATERAL SI JOINT PAIN W/ ? OF, IMFLAMMATION ON PLAIN FILMS, BUTNOT DEFINITIVE. PAIN IN JOINT INVOLVING PELVIC AND THIGH REGION TECHNIQUE: Multiplanar multisequence MRI of the pelvis wasperformed without contrast COMPARISON: Lumbar spine radiographs 08/12/2019. FINDINGS: The right sacral iliac joint demonstrates bilateral subchondral edema. There is subchondral sclerosis, particularly involving the iliac side of the joint. Multiple erosions arepresent. There is mild adjacent soft tissue edema along the anterior and superior margins of the joint. The contralateral left sacroiliac joint does not demonstrates trace bone marrow edema along the posterior superior margin of the sacral side of the joint with trace adjacent soft tissue edema (coronal series 8 image 13). There is mild sclerosis involving the iliacside of the joint. No discrete erosions are present on the left. No pelvic lymphadenopathy is detected. IMPRESSION: Findings of asymmetric sacroiliitis, right greater than left, most concerning for inflammatory arthropathy. The differential includes psoriatic arthritis, reactive arthritis, rheumatoid arthritis, ankylosing spondylitis, enteropathic arthritis and SAPHO. Infection should also be considered in the appropriate clinical context. REPORT SIGNED IN OTHER VENDOR SYSTEM 07/01/2020 Reported By: True Simons MD CC: Transcribed Date/Time: 07/01/2020 (0846) Senior Accounting Clerk: Printed Date/Time: 07/01/2020 (0846) PAGE 1 Signed Report us Dena Stephenson MD IMG MRI ORDERABLES Final Result documented in this encounter Visit Diagnoses Not on filedocumented in this encounter Care Teams Merchandising Internship Relationship Specialty Start Date End Date Grace Raya, [address] [place] [address] PCP - General 05/19/20 documented as of this encounter
--- OUTSIDE RECORDS SUMMARY | 2024-10-26 18:54 | XMS_ITS | Encounter Summary ---
Author Organization [facility] Address [address] [place] [address] Care Team Providers Care Spectrograph Operator Name Role Phone Grace Raya CATTLE DIPPER Primary Care Provider [phone] Reason for Referral * Consult (Routine) - Closed Specialty Diagnoses / Procedures Referred By Navdeep olvera Referred To Contact Rheumatology Diagnoses Sacroiliitis ([facility]) Ritchie Orellana PA-C Phone: tel: fax: [facility] - [address] [address] Phone: tel: fax: Referral ID Status Reason Start Date Expiration Date V isits Requested Visits Authorized [id number] Closed Specialty Services Required 02/22/2021 1 1 Question Answer Reason for Request: sacroiliitis-second opinion for management has been seen at [facility] Reason for Visit * Reason Comments Back Pain LBP * Referral (Routine) - Receiving Office to Obtain Authorization Specialty Diagnoses / Procedures Referred By Navdeep olvera Referred To Contact Orthopedic Surgery Diagnoses Sacroiliitis, not elsewhere classified ([facility]) Low back pain Tisha Seay, CHIEF PROCUREMENT OFFICER [address] [place] [address] Phone: tel: fax: [facility] [address] [place] [place] [address] Phone: tel: fax: Referral ID Status Reason Start Date Expiration Date Visits Requested Visits Authorized [id number] Receiving Office to Obtain Authorization 1 1 Encounter Details Date Type Department Care Team (Late st Contact Info) Description 02/21/2021 9:45 EDT Office Visit [facility] [place] [address] [place] [address] Ritchie Orellana PA-C [address] [facility] [place] [address] Sacroiliitis ([facility]) (Primary Dx) Social History Tobacco Use Types [...] documented in this encounter Progress Notes * Ritchie Orellana PA-C - 02/21/2021 0945 EDT Liudmila Kiser is being seen as a consultation from Dr. Seay. Chief Complaint Patient presents with ??? Back Pain LBP There were no encounter diagnoses. HPI patient's past medical history significant for sacroiliitis and chronic low back pain since herteenage years vitiligo and eczema. She has a psychologist social [facility]. Her back pain isconstant vacillating in intensity primarily on the right side associated right lower extremity symptoms radiating through the buttock posterior thigh posterior calf. Symptoms exacerbated by standing bending walking and lifting she finds very little that provides relief and has difficulty sleeping because of her pain. She had tried nabumetone but according the patient she developed what sounds like jaundice and abdominal pain. That was discontinued. She has seen a physical therapist in the past.She had an SI injection seem to make her symptoms worse she had no significant improvement. HPI Patient Active Problem List Diagnosis ??? Exercise-induced asthma ??? Chronic right-sided low back pain with right-sided sciatica ??? Chronic gingivitis ??? Alcohol abuse Past Medical History: Diagnosis Date ??? Alopecia areata No past surgical history on file. Social History Tobacco Use ??? Smoking status: Never Smoker ??? Smokeless tobacco: Never Used Substance Use Topics ??? Alcohol use: Not on file No family history on file. Current Outpatient Medications Medication Sig Dispense Refill ??? albuterol 90 mcg/actuation inhaler 2 puff(s) inhaled every 6 hours prn ??? citalopram (CELEXA) 20 mg tablet TAKE 1.5 TABLETS BY MOUTH EVERY DAY ??? gabapentin (NEURONTIN) 100 mg capsule Take 300 mg by mouth daily. ??? levonorgestrel (MARIAN INTRAUTERINE) by intrauterine route. Put in 3 days ago. ??? rizatriptan benzoate (RIZATRIPTAN ORAL) Take by mouth if needed (PRN for migraine). No current facility-administered medications for this visit. Allergies Allergen Reactions ??? Prednisone Hives and Palpitations Review of Systems Physical Exam Constitutional: General: She is not in acute distress. Appearance: She is well-developed and well-nourished. Eyes: Extraocular Movements: EOM normal. Pulmonary: Effort: Pulmonary effort is normal. Skin: General: Skin is warm and dry. Neurological: Mental Status: She is alert and oriented to person, place, and time. Psychiatric: Mood and Affect: Mood and affect normal. Back Exam Comments: Her gait is normal toe and heel walking is normal she has moderate to severe palpable tenderness bilateral SI joints range of motion is full strength 5-5 soft touch diminished lateral rightthigh lateral right calf reflexes 1 dorsalis pedis 2 straight leg raise negative Neurologic Exam Mental Status Oriented to person, place, and time. Cranial Nerves CN III, IV, Extraocular motions are normal. The prior workup of the patient includes: Lumbar films 2019 revealed moderate signs of sacroiliitiswith increased sclerosis on the iliac portion of the SI joint on the left and mild to moderate on the right MRI of the SI joints reveals significant degenerative changes of the SI joint with rat bite and Modic changes right greater than left to space heights at L4-5 and L5-S1 well-preserved no lorne herniations or nerve impingements Assessment Back pain a result of sacroiliitis lower extremity symptoms not clearly concordant with her scan. Physical exam reveals some signs of dysesthesias this may be a chemical radiculopathy as result of the sacroiliitis irritating the L5- S1 root as it traverses the SI joint. At this point I would recommend a second opinion consult with rheumatology to discuss management of her sacroiliitis. Patient agrees I encouraged her to be as active as she can tolerate. Plan: Rheumatology consult Activity as tolerated Pain management per primary doctor Follow-up with me as needed Dr. Joya was available for consultation but was not consulted documented in this encounter Plan of Treatment Upcoming Encounters Date Type Department Care Team (Late st Contact Info) Description 01/28/2025 8:30 EDT Office Visit [facility] Rheumatology [address] [place] [address] Dena Stephenson MD [address] [place] [address] Scheduled Referrals Name Type Priority Associated Diagnoses Order Schedule AMB CONS/FOLLOW UP RHEUMATOLOGY Outpatient Referral Routine Sacroiliitis ([facility]) Ordered: 02/22/2021 documented as of this encounter Visit Diagnoses Diagnosis Sacroiliitis ([facility])- Primary Sacroiliitis, not elsewhere classified documented in this encounter Historical Medications * This list may reflect changes made after this encounter. rizatriptan benzoate (RIZATRIPTAN ORAL) Take by mouth if needed (PRN for migraine). added in this encounter Care Teams Spectrograph Operator Relationship Specialty Start Date End Date Grace Raya NP [address] [place] [address] PCP - General 05/19/20 documented as of this encounter
--- OUTSIDE RECORDS SUMMARY | 2024-10-26 18:54 | XMS_ITS | Encounter Summary ---
Author Organization [facility] Address [address] [place] [address] Care Team Providers Care Section Leader Name Role Phone Grace Raya ROADSIDE MECHANIC Primary Care Provider [phone] Encounter Details Date Type Department Care Team ([facility] Contact Info) Description 10/10/2021 Orders Only [facility] Employee [address] [phone] Hong Tinajero, RN Exposure to COVID-19 virus (Primary Dx); Myalgia; Runny nose Social History Tobacco Use [...] Info) Description 01/28/2025 8:30 EDT Office Visit [facility] Rheumatology [address] [place] [address] Dena Stephenson MD [address] [place] [address] [address] [place] [address] documented as of this encounter Results * COVID-19 TESTING (10/10/2021 12:55 EST) COVID-19 rt-PCR Result Negative Negative 10/10/2021 18:21 EST [facility] Comment: This test has not [...] history, and epidemiological information. Performed on the [employer] Fusion instrument Performing Lab [place] [facility] Lab 10/10/2021 18:21 EST [facility] Swab ENTIRE NASOPHARYNX / Unknown Swab / Unknown 10/10/2021 12:55 EST 10/10/2021 12:55 EST us Jordan Ramsey MD MICROBIOLOGY - GENERAL ORDERABLES Final Result [facility] [address] [place] [address] documented in this encounter Visit Diagnoses Diagnosis Exposure to COVID-19 virus- Primary Myalgia Mylagia and myositis, unspecified Runny nose Other diseases of nasal cavity and sinuses documented in this encounter Care Teams Section Leader Relationship Specialty Start Date End Date Grace Raya, ROADSIDE MECHANIC [address] [place] [address] PCP - General 05/19/20 documented as of this encounter
--- OUTSIDE RECORDS SUMMARY | 2024-10-26 18:54 | XMS_ITS | Encounter Summary ---
Author Organization [facility] Address [address] [place] [address] Care Team Providers Care Architecture Internship Name Role Phone Grace Raya VP [employer] AFFAIRS Primary Care Provider Encounter Details Date Type Department Care Team ([facility] Contact Info) Description 10/10/2021 Orders Only [facility] Employee [address] [phone] Hong Tinajero, RN Exposure to COVID-19 virus [...] Info) Description 01/28/2025 8:30 EDT Office Visit [facility] Rheumatology [address] [place] [address] Dena Stephenson MD [address] [place] [address] [address] [place] [address] documented as of this encounter Results * COVID-19 TESTING (10/14/2021 9:08 EST) COVID-19 rt-PCR Result Negative Negative 10/15/2021 15:15 EST [facility] Comment: This test has not [...] clinical observations, patient history, and epidemiological information. This test was developed and its performance characteristics determined by [facility]. It has not been cleared or approved by the [place] Food and Drug Administration. FDA does not require this test to go through premarket FDA review. This test is used for clinical purposes. It should not be regarded as investigational or for research. This laboratory is certified under the Clinical Laboratory Improvement Amendments (CLIA) as qualified to perform high complexity clinical laboratory testing. This test is based on the [facility] COVID-19 Emergency Use Authorization (EUA) assay, with minor modification as defined by the FDA Performed on the [employer] Pro RT-PCR System. Performing Lab [facility] Lab 10/15/2021 15:15 EST [facility] Swab BOTH ANTERIOR NARES / Unknown Swab / Unknown 10/14/2021 9:08 EST 10/14/2021 9:08 EST Jordan Ramsey MD MICROBIOLOGY - GENERAL ORDERABLES Final Result [facility] [address] [place] [address] documented in this encounter Visit Diagnoses Diagnosis Exposure to COVID-19 virus- Primary Myalgia Mylagia and myositis, unspecified Runny nose Other diseases of nasal cavity and sinuses documented in this encounter Care Teams Architecture Internship Relationship Specialty Start Date End Date Grace Raya NP [address] [place] [address] PCP - General 05/19/20 documented as of this encounter
--- OUTSIDE RECORDS SUMMARY | 2024-10-26 18:54 | XMS_ITS | Encounter Summary ---
Author Organization [facility] Address [address] [place] [address] Care Team Providers Care Cell Phone Repair Technician Name Role Phone Grace Raya CASUALTY UNDERWRITER Primary Care Provider [phone] Encounter Details Date Type Department Care Team (Late Contact Info) Description 10/19/2021 Lab Requisition [facility] Pathology & [facility] [address] [place] [address] Grace Raya, CASUALTY UNDERWRITER [address] [place], [place] [phone] Encounter for general adult medical examination without [...] 8:30 EDT Office Visit [facility] Rheumatology [address] [place] [address] Dena Stephenson MD [address] [facility] [address] [place] [id number] Scheduled Orders Name Type Priority Associated Diagnoses Orde r Schedule PAP TEST Pathology Today Encounter for general adult medical examination without abnormal findings Encounter for screening for malignant neoplasm of cervix Ordered: 10/19/2021 documented as of this encounter Visit Diagnoses Diagnosis Encounter for general adult medical examination without abnormal findings Unspecified general medical examination Encounter for screening for malignant neoplasm of cervix Screening for malignant neoplasm of the cervix documented in this encounter Care Teams Cell Phone Repair Technician Relationship Specialty Start Date End Date Grace Raya NP [address] [place] [address] PCP - General 05/19/20 documented as of this encounter
--- OUTSIDE RECORDS SUMMARY | 2024-10-26 18:54 | XMS_ITS | Encounter Summary ---
Author Organization [facility] Address [address] [place] [address] Care Team Providers Care Healthcare Marketer Name Role Phone ElverGrace Tessy HOUSE CARPENTER HELPER Primary Care Provider [phone] Reason for Visit * Reason Comments Emesis Pt ambulatory to tri age with sister - severe nausea & emesis, 3rd ED visit in past two months; dx with cannaboid hyperemesis, but sx persist despite abstaining from cannabis use Encounter Details Date Type Department Care Team (Late st Contact Info) Description 09/19/2022 8:35 EST - 09/19/2022 16:06 EST Emergency [facility] Emergency Department - [address] [address] Fawn Ta MD [address] [facility], [address] [place] [address] Cannabis hyperemesis syndrome concurrent with and due to cannabis abuse ([facility]) (Primary Dx) Discharge Disposition: Home or Self Care Social History Tobacco Use Types Packs/Day Years Used Date Smoking Tobacco: Never Smokeless Tobacco: Never Tobacco Cessation:Counseling Given: Not Answered Alcohol Use Standard Drinks/Week Comments Yes 0 [...] Sign Reading Time Taken Comments Blood Pressure 123/82 09/19/2022 1519 EST Pulse 96 09/19/2022 0832 EST Temperature 36.1 ??C (97 ??F) 09/19/2022 1519 EST Respiratory Rate 14 09/19/2022 1519 EST Oxygen Saturation 98% 09/19/2022 1519 EST Inhaled Oxygen Concentration - - Weight 68 kg (150 lb) 09/19/2022 0832 EST Height - - Body Mass Index [...] this encounter Discharge Instructions * Discharge Instructions* Samia Ingram MD - 09/19/2022 15:00 EST Thank you for coming to the ED at [facility] for your medical care. Whenever we see you in the emergency department we are getting a snapshot of your medical condition. Things can change and even small changes might alter how we care for you. If your symptoms change in a way that concerns you or makes you unsure, please return for re-evaluation. We are here 24 hours a day, every day of the year, so donot hesitate to return. Compazine as needed for nausea and vomiting. Take with 25 mg of benadryl. Both will make you sleepy. Please avoid marijuana and other drugs as they cause you to be unwell Follow up with PCP Return for worsening or new, concerning symptoms * Attachments The following attachments cannot be sent through Care Everywhere. * Cannabis Use Disorder: General Info (Emirati) documented in this encounter Medications at Time [...] Refills Last Filled Start Date End Date prochlorperazine (COMPAZINE) 10 mg tablet Take 1 Tablet by mouth every 6 hours as needed for Nausea. 10 Tablet 09/19/2022 04/21/2024 prochlorperazine (COMPAZINE) 10 mg tablet Take 1 Tablet by mouth every 6 hours as needed for Nausea. 10 Tablet 09/19/2022 09/19/2022 documented in this encounter Discharge Disposition Disposition Code Departure Means Destination Home or Self [facility] documented in this encounter ED Notes * Fawn Ta MD - 09/19/2022 0856 EST This patient received an evaluation and medical screening exam for emergent medical conditions at the [facility] on 09/19/2022 Scribe attestation: This documentation is recorded by Darleen Stephens acting as Scribe under the direction and presence of Dr. Ta. I, Fawn Ta MD, have utilized a scribe to help in the preparation of this note. I have reviewed and agree with the scribe's note and I have made modifications as necessary. FLAKO Lyman is a 22 y.o. female with PMH including asthma, alcohol use disorder, and migraine who presents to the ED for evaluation of emesis. Patient's sister in the room reports she began feeling nauseous and started vomiting immediately upon waking at 0800 this morning. Her emesis is described a s what she ate last night. She has not eaten today. Patient endorses chest pain which she ascribes to her vomiting, and abdominal pain. She denies shortness of breath, back pain, dysuria, hematuria, fever, chills. Her last marijuana use was prior to her ED visit on 08/05. Patient endorses social alcohol use. Per chart review, patient was evaluated in the [facility] ED on 08/05 for emesis, was diagnosed with cannabinoid hyperemesis syndrome, and improved after 4 mg of Zofran, 2.5 mg of droperidol, and a liter of lactated Ringer's. History was provided by: Patient, EHR Patient's pertinent PMH, FH, SH were reviewed and updated PRN. ROS A 10-point review of systems was performed. The patient answered negative to all questions with theexceptions of those explicitly detailed as positives in the HPI. Pertinent negatives are also explicitly stated. Physical Exam Vital Signs Vitals Reassessment?: Yes Temp: 35.6 ??C (96.1 ??F) Pulse: 96 Resp: 22 SpO2: 98 % BP: 105/79 O2 Device: None (Room air) Physical Exam Vitals and nursing note reviewed. Constitutional: General: She is not in acute distress. Appearance: She is well-developed. She is not diaphoretic. Comments: Patient actively retching in the room and appears uncomfortable. HENT: Head: Normocephalic and atraumatic. Right Ear: External ear normal. Left Ear: External ear normal. Nose: Nose normal. Eyes: General: Right eye: No discharge. Left eye: No discharge. Conjunctiva/sclera: Conjunctivae normal. Pupils: Pupils are equal, round, and reactive to light. Cardiovascular: Rate and Rhythm: Regular rhythm. Tachycardia present. Heart sounds: Normal heart sounds. Pulmonary: Effort: Pulmonary effort is normal. No respiratory distress. Breath sounds: Normal breath sounds. Abdominal: General: Bowel sounds are normal. There is no distension. Palpations: Abdomen is soft. Tenderness: There is abdominal tenderness in the epigastric area. Musculoskeletal: General: Normal range of motion. Cervical back: Normal range of motion and neck supple. Skin: General: Skin is warm and dry. Findings: No rash. Neurological: Mental Status: She is alert and oriented to person, place, and time. Cranial Nerves: No cranial nerve deficit. Procedures Procedures N/A Laboratory Results Labs Reviewed DRUG SCREEN 11, URINE - Abnormal Result Value Status Amphetamine Screen, Ur Negative Screen Final Barbiturates Screen, Ur Negative Screen Final Benzodiazepine Screen, Ur Negative Screen Final Buprenorphine and Metabolites Screen, Ur Negative Screen Final Cannabinoids Screen, Ur Presumptive Positive, interpret with caution. (*) Final Cocaine Metabolites Screen, Ur Presumptive Positive, interpret with caution. (*) Final Methadone Screen, Ur Negative Screen Final Methamphetamine Screen, Ur Negative Screen Final Opiates Screen, Ur Negative Screen Final Oxycodone Screen, Ur Negative Screen Final Propoxyphene Screen, Ur Negative Screen Final POCT URINE DIPSTICK, CLINITEK - Abnormal Color, UA Yellow Final Clarity, UA Clear Final Glucose, UA Negative Final Bilirubin, UA Negative Final Ketones, UA 4+ (*) Final Specific Poth, Urine 1.025 Final Blood, UA Trace (*) Final pH, UA 7.5 Final Protein, UA 1+ (*) Final Urobilinogen, UA 0.2 Final Nitrite, UA Negative Final Leuk Esterase Negative Final HN LAB COMMENT (CLINITEK, UR) Test performed at Emergency Department Final POCT URINE CLINITEK (DIPSTICK) - DOES NOT REFLEX Narrative: The following orders were created for panel order POCT URINE CLINITEK (DIPSTICK) - DOES NOT REFLEX. Procedure Abnormality Status --------- ------ POCT URINE DIPSTICK, CLI...[[id number]] Abnormal Final result POCT CSN BARCODE URINE D...[[id number]] Final result Please view results for these tests on the individual orders. POCT TEST, CLINITEK ORDER Narrative: The following orders were created for panel order POCT TEST, CLINITEK ORDER. Procedure Abnormality Status --------- ------ POCT TEST, CLI...[[id number]] Final result POCT CSN BARCODE URINE P...[[id number]] Final result Please view results for these tests on the individual orders. POCT CSN BARCODE URINE DIPSTICK POCT CSN BARCODE URINE PREG TEST POCT TEST, CLINITEK UPT Result Negative Final HN LAB COMMENT (CLINITEK, UPT) Test performed at Emergency Department Final ED Course A medical screening exam was performed. The patient is a 22 y.o. female with a history of cannabinoid hyperemesis syndrome, asthma, alcoholuse disorder, and migraine who presents to the ED with continuous vomiting since 0800 this morning.Patient denies additional marijuana use since prior ED visit on 08/05. Physical exam was significant for: tenderness in the epigastrium, patient actively retching in the room, tachycardic, and uncomfortable appearing. Patient had an EKG performed upon arrival to the ED which was reviewed and interpreted by myself. (Normal sinus rhythm, rate of 66 bpm, normal axis, normal R wave progression, QTc 470). 1010: patient given 2.5mg droperidol 1059: Patient given 4mg IV Zofran. Patient had labs that were reviewed independently by myself, significant for: cannabinoid and cocaine positive drug screen and UA with 4+ ketones. Will give D5. Patient was hydrated with 500mL of D5 completed at 1155. 1333: Patient given 10mg IV Compazine and 25mg IV Benadryl. 1455: Upon reevaluation, patient is resting comfortably in bed, feeling improved and is comfortablewith plan for discharge home. At this time, the patient was stable for discharge home due to symptom improvement. Prior to discharge usual and customary precautions were reviewed with the patient and/or family including follow-up instructions and reasons to return to the Emergency Department if condition worsens, does not improve as expected, or other new concerns arise. While under my care in the Emergency Department, the patient's pain was managed to an adequate level weighing risk vs. benefit of medication. Impression Final diagnoses: Cannabis hyperemesis syndrome concurrent with and due to cannabis abuse ([facility]) (HCC) Disposition Discharged Disposition decisions were made weighing risks and benefits of hospitalization vs. outpatient treatment, the risk for further decompensation, and the patient???s wishes. The patient was stable, improved, or requested discharge. Prior to discharge my usual and customaryreturn precautions were reviewed with the patient and/or family. This included follow-up instructions and reasons to return to the Emergency Department if condition worsens, does not improve as expected, or other new concerns arise. Any further pain treatment will be at the discretion of the provider following up with the patient based on their clinical assessment. * Elke Santana RN - 09/19/2022 0834 EST Chief Complaint Patient presents with Emesis Pt ambulatory to triage with sister - severe nausea & emesis, 3rd ED visit in past two months; dx with cannaboid hyperemesis, but sx persist despite abstaining from cannabis use Actively vomiting in triage, unable to answer questions - sister providing history BP 105/79 Pulse 96 Temp 35.6 ??C (96.1 ??F) Resp 22 Wt 68 kg (150 lb) SpO2 98% BMI 27.44 kg/m?? documented in this encounter Plan of Treatment Upcoming Encounters Date Type Department Care Team (Late st Contact Info) Description 01/28/2025 8:30 EDT Office Visit [facility] Rheumatology [address] [place] [address] Dena Stephenson MD [address] [facility] [address] [place] [address] documented as of this encounter Procedures Procedure Name Priority Date/Time Associated Diagnosis Comments ECG REPORT - SCANNED 10/02/2022 11:52 EST ECG REPORT - SCANNED 10/02/2022 11:52 EST POCT TEST, CLINITEK STAT 09/19/2022 11:34 EST POCT URINE DIPSTICK, CLINITEK STAT 09/19/2022 11:33 EST POCT CSN BARCODE URINE PREG TEST STAT 09/19/2022 11:29 EST POCT TEST, CLINITEK ORDER STAT 09/19/2022 11:29 EST POCT CSN BARCODE URINE DIPSTICK STAT 09/19/2022 11:29 EST POCT URINE CLINITEK (DIPSTICK) - DOES NOT REFLEX STAT 09/19/2022 11:29 EST DRUG SCREEN 11, URINE STAT 09/19/2022 11:29 EST EKG 12-LEAD STAT 09/19/2022 9:40 EST documented in this encounter Results * ECG REPORT - SCANNED (10/02/2022 11:52 EST) 10/02/2022 11:5 2 EST us Scan 2 Lye Machine Operator PROCEDURE/MINOR SURGICAL OR DERABLES Final Result * ECG REPORT - SCANNED (10/02/2022 11:52 EST) 10/02/2022 11:5 2 EST us Scan 2 Lye Machine Operator PROCEDURE/MINOR SURGICAL OR DERABLES Final Result * POCT TEST, CLINITEK (09/19/2022 11:34 EST) UPT Result Negative Negative 09/19/2022 11:40 [facility] HN LAB COMMENT (CLINITEK, UPT) Test performed at Emergency Department 09/19/2022 11:40 [facility] Comment:False negative resul ts may occur in women who are beyond 5-8 weeks gestation. Diagnosis of should be based on a correlation of test results with typical clinical signs and symptoms. Urine URINE SPECIMEN COLLECTION, CLEAN CATCH / Unknown 09/19/2022 11:34 EST 09/19/2022 11:40 EST us Fawn Ta MD POINT OF CARE TEST DEANDRE RODRIGUES Final Result Performing Organization Address City/State/[facility] Co de Phone Number [facility] [address] [place] [address] * (ABNORMAL) POCT URINE DIPSTICK, CLINITEK (09/19/2022 11:33 EST) Color, UA Yellow Yellow 09/19/2022 11:35 [facility] Clarity, UA Clear Clear 09/19/2022 11:35 [facility] Glucose, UA Negative Negative 09/19/2022 11:35 [facility] Bilirubin, UA Negative Negative 09/19/2022 11:35 [facility] Ketones, UA 4+(AA) Negative 09/19/2022 11:35 [facility] Specific Poth, Urine 1.025 1.001 - 1.035 09/19/2022 11:35 [facility] Blood, UA Trace(A) Negative 09/19/2022 11:35 [facility] pH, UA 7.5 4.6 - 8.0 09/19/2022 11:35 [facility] Protein, UA 1+(A) Negative 09/19/2022 11:35 [facility] Urobilinogen, UA 0.2 0.2 - 1.0 mg/dL 09/19/2022 11:35 [facility] Nitrite, UA Negative Negative 09/19/2022 11:35 [facility] Leuk Esterase Negative Negative 09/19/2022 11:35 [facility] HN LAB COMMENT (CLINITEK, UR) Test performed at Emergency Department 09/19/2022 11:35 [facility] Urine URINE SPECIMEN COLLECTION, CLEAN CATCH / Unknown 09/19/2022 11:33 EST 09/19/2022 11:35 EST Fawn Ta MD POINT OF CARE TEST ORDE RABLES Final Result Performing Organization Address [facility] Co de Phone Number [facility] [address] [place] [address] * POCT CSN BARCODE URINE PREG TEST (09/19/2022 11:29 EST) Urine URINE SPECIMEN COLLECTION, CLEAN CATCH / Unknown Urine Collect / Unknown 09/19/2022 11:29 EST 09/19/2022 11:29 EST Fawn Ta MD LAB INFO SERVICE AND MARIE PPORT & PHONE RESULT Final Result Performing Organization Address [facility] Co de Phone Number [facility] [address] [place] [address] * POCT CSN BARCODE URINE DIPSTICK (09/19/2022 11:29 EST) Urine URINE SPECIMEN COLLECTION, CLEAN CATCH / Unknown Urine Collect / Unknown 09/19/2022 11:29 EST 09/19/2022 11:29 EST Fawn Ta MD LAB INFO SERVICE AND MARIE PPORT & PHONE RESULT Final Result Performing Organization Address City/[facility]/ZIP Co de Phone Number [facility] [address] [place] [phone] * (ABNORMAL) DRUG SCREEN 11, URINE (09/19/2022 11:29 EST) Amphetamine Screen, Ur Negative Screen Negative, Negative Screen 09/19/2022 11:55 [facility] Comment: Confirmation testing available upon request. Suitable for medical purposes only. Will not detect all drugs within class. Cutoff = 500 ng/mL Barbiturates Screen, Ur Negative Screen Negative, Negative Screen 09/19/2022 11:55 [facility] Comment: Confirmation testing available upon request. Suitable for medical purposes only. Will not detect all drugs within class. Cutoff = 200 ng/mL Benzodiazepine Screen, Ur Negative Screen Negative, Negative Screen 09/19/2022 11:55 [facility] Comment: Confirmation testing available upon request. Suitable for medical purposes only. Will not detect all drugs within class. Cutoff = 150 ng/mL Buprenorphine and Metabolites Screen, Ur Negative Screen Negative, Negative Screen 09/19/2022 11:55 [facility] Comment: Confirmation testing available upon request. Suitable for medical purposes only. Will not detect all drugs within class. Cutoff = 10 ng/mL Cannabinoids Screen, Ur Presumptive Positive, interpret with caution.(A) Negative, Negative Screen 09/19/2022 11:55 [facility] Comment: Confirmation testing available upon request. Suitable for medical purposes only. Will not detect all drugs within class. Cutoff = 50 ng/mL Cocaine Metabolites Screen, Ur Presumptive Positive, interpret with caution.(A) Negative, Negative Screen 09/19/2022 11:55 [facility] Comment: Confirmation testing available upon request. Suitable for medical purposes only. Will not detect all drugs within class. Cutoff = 150 ng/mL Methadone Screen, Ur Negative Screen Negative, Negative Screen 09/19/2022 11:55 [facility] Comment: Confirmation testing available upon request. Suitable for medical purposes only. Will not detect all drugs within class. Cutoff = 200 ng/mL Methamphetamine Screen, Ur Negative Screen Negative, Negative Screen 09/19/2022 11:55 [facility] Comment: Confirmation testing available upon request. Suitable for medical purposes only. Will not detect all drugs within class. Cutoff = 500 ng/mL Opiates Screen, Ur Negative Screen Negative, Negative Screen 09/19/2022 11:55 EST [facility] Comment: Confirmation testing available upon request. Suitable for medical purposes only. Will not detect all drugs within class. Cutoff = 100 ng/mL Oxycodone Screen, Ur Negative Screen Negative, Negative Screen 09/19/2022 11:55 EST [facility] Comment: Confirmation testing available upon request. Suitable for medical purposes only. Will not detect all drugs within class. Cutoff = 100 ng/mL Propoxyphene Screen, Ur Negative Screen Negative, Negative Screen 09/19/2022 11:55 EST [facility] Comment: Confirmation testing available upon request. Suitable for medical purposes only. Will not detect all drugs within class. Cutoff = 300 ng/mL Urine URINE SPECIMEN COLLECTION, CLEAN CATCH / Unknown Urine Collect / Unknown 09/19/2022 11:29 EST 09/19/2022 11:42 EST Fawn Ta MD GEN LAB UNIT COLLECT OR DERABLES Final Result [facility] [address] [place] [address] * EKG 12-LEAD (09/19/2022 9:40 EST) 09/19/2022 9:40 EST Narrative [facility] E[facility] - 10/02/2022 11:48 EST ?[facility] Emergency ? Test Date: ?2022-09-19 Pat Name: ? IRIS ESMER ? Department: ?? ED ? Room: ? WA05 Gender: ? Female ? Machine Etcher: ?? [id number] : ?2000 ? Requested By: HIGINIO SANDOVAL Order Number: [id number] ? Reading MD: ?? MARKY COTE ? Measurements Intervals ?[place] ? Rate: ? 66 ? P: ?34 NE: ? 106 ?QRS: ?77 QRSD: ? 86 ? T: ?57 QT: ? 456 ? QTc: ?481 ? Interpretive Statements SINUS RHYTHM WITH MARKED SINUS ARRHYTHMIA WITH SHORT NE INTERVAL Automated Interpretation. ??Provider Interpretation to follow. Compared to ECG 08/05/2022 17:45:54 No significant changes I reviewed the tracing and have either agreed or edited the findings in this report. Electronically Signed On 10-02-2022 11:48:23 EST by MARKY COTE. Procedure Note Marky Cote MD - 10/02/2022 [facility] Emergency Test Date: 2022-09-19 Pat Name: ANDIE LYMAN Department: ED Room: [facility] Gender: Female Machine Etcher: [id number] : 2000 Requested By: HIGINIO GOODMAN Order Number: [id number] Reading MD: MARKY COTE Measurements Intervals [place] Rate: 66 P: 34 NE: 106 QRS: 77 QRSD: 86 T: 57 QT: 456 QTc: 481 Interpretive Statements SINUS RHYTHM WITH MARKED SINUS ARRHYTHMIA WITH SHORT NE INTERVAL Automated Interpretation. Provider Interpretation to follow. Compared to ECG 08/05/2022 17:45:54 No significant changes I reviewed the tracing and have either agreed or edited the findings inthis report. Electronically Signed On 10-02-2022 11:48:23 EST by MARKY COTE. us Fawn Ta MD CARDIAC ECG ORDERABLES Final Result [facility] E[facility] documented in this encounter Visit Diagnoses Diagnosis Cannabis hyperemesis syndrome concurrent with and due to cannabis abuse ([facility])- Primary documented in this encounter Administered Medications Inactive Administered Medications - up to 3 most recent administrations Medication Order MAR Action Action Date Dose Rate Site dextrose 5% lactated ringers BOLUS 500 mL 500 mL, intravenous, NOW X1, 1 dose, On Sat09/19/22 at 1145, STAT Given 09/19/2022 11:55 EST 500 mL diphenhydrAMINE (BENADRYL) injection 25 mg 25 mg, intravenous, NOW X1, 1 dose, On Sat09/19/22 at 1330, STAT Given 09/19/2022 13:33 EST 25 mg droperidoL (INAPSINE) injection 2.5 mg 2.5 mg, intravenous, NOW X1, 1 dose, On Sat09/19/22 at 1000, STAT Given 09/19/2022 10:10 EST 2.5 mg lactated ringers BOLUS 1,000 mL 1,000 mL, intravenous, NOW X1, 1 dose, On Sat09/19/22 at 1000, STAT New Bag 09/19/2022 9:59 EST 1,000 mL ondansetron (PF) (ZOFRAN) injection 4 mg 4 mg, intravenous, NOW X1, 1 dose, On Sat09/19/22 at 1100, STAT Given 09/19/2022 10:59 EST 4 mg prochlorperazine edisylate (COMPAZINE) injection 10 mg 10 mg, intravenous, NOW X1, 1 dose, On Sat09/19/22 at 1330, STAT Given 09/19/2022 13:33 EST 10 mg documented in this encounter Discontinued Medications Medication Sig Discontinue Reason Start Date End Da te prochlorperazine (COMPAZINE) 10 mg tablet Take 1 Tablet by mouth every 6 hours as needed for Nausea. Reorder 09/19/2022 09/19/2022 documented as of this encounter Active and Recently Administered Medications Times are shown in EST. Scheduled Medication Order 09/17/2022 09/18/2022 09/19/2022 dextrose 5% lactated ringers BOLUS 500 mL (COMPLETED) 500 mL, intravenous, NOW X1, 1 dose, On Sat09/19/22 at 1145, STAT 1155 (Given - Provid er: Jessica Guerrier RN) diphenhydrAMINE (BENADRYL) injection 25 mg (COMPLETED) 25 mg, intravenous, NOW X1, 1 dose, On Sat09/19/22 at 1330, STAT 1333 (Given - Provid er: Jessica Guerrier RN) droperidoL (INAPSINE) injection 2.5 mg (COMPLETED) 2.5 mg, intravenous, NOW X1, 1 dose, On Sat09/19/22 at 1000, STAT 1010 (Given - Provid er: Jessica Guerrier RN) lactated ringers BOLUS 1,000 mL (COMPLETED) 1,000 mL, intravenous, NOW X1, 1 dose, On Sat09/19/22 at 1000, STAT 0959 (New Bag - Prov ider: Jessica Guerrier RN) ondansetron (PF) (ZOFRAN) injection 4 mg (COMPLETED) 4 mg, intravenous, NOW X1, 1 dose, On Sat09/19/22 at 1100, STAT 1059 (Given - Provid er: Jessica Guerrier, CHARLY) prochlorperazine edisylate (COMPAZINE) injection 10 mg (COMPLETED) 10 mg, intravenous, NOW X1, 1 dose, On Sat09/19/22 at 1330, STAT 1333 (Given - Provid er: Jessica Guerrier RN) documented in this encounter Orders Medications Ordered That Speedy ht Not Have Been Administered Count Last Ordered Date First Ordered Date ondansetron (PF) (ZOFRAN) injection 4 mg 1 09/19/2022 documented in this encounter Care Teams Healthcare Marketer Relationship Specialty Start Date End Date Grace Raya, [address] [place] [address] PCP - General 05/19/20 documented as of this encounter
--- OUTSIDE RECORDS SUMMARY | 2024-10-26 18:54 | XMS_ITS | Encounter Summary ---
Author Organization [facility] Address [address] [place] [address] Care Team Providers Care Air Twister Winder Name Role Phone ChinoGrace lynn Tessy PROGRESS DEVELOPER Primary Care Provider [phone] Encounter Details Date Type Department Care Team ([facility] Contact Info) Description 07/28/2020 Results Only [facility] [place] [address] [place] [address] Dena Stephenson MD [address] [facility] [address] [place] [address] Social History Tobacco Use Types [...] Encounter Note - Dena Stephenson MD - 07/28/2020 1110 EDT Please call Iris and let her know all of the other antibody tests were negative. Repeat liver testsare normal. She is trying nabumetone x 6 weeks and will follow up with me at the end of the month to assess how she's doing. Thanks. documented in this encounter Plan of Treatment Upcoming Encounters Date Type Department Care Team (Late st Contact Info) Description 01/28/2025 8:30 EDT Office Visit [facility] [place] [address] [place] [address] Dena Stephenson MD 130 [facility] [address] [place] [address] documented as of this encounter Procedures Procedure Name Priority Date/Time Associated Diagnosis Comments ANTI MATT ANTIBODIES - [facility] Routine 07/28/2020 9:28 EDT DOUBLE STRANDED DNA ANTIBODY, IGG Routine 07/28/2020 9:28 EDT HEPATIC FUNCTION PANEL (ALB,ALK PHOS,ALT,AST,DBIL,TO T SHADY,TOT PROT) Routine 07/28/2020 9:26 EDT documented in this encounter Results * ANTI MATT ANTIBODIES - [facility] (07/28/2020 9:28 EDT) MARIA A 1 AB IGG, S - CV <0.2 () U 08/02/2020 16:56 EDT [facility] Comment: REFERENCE VALUE <1.0 (Negative) Test Performed by: [facility] [address] [place] [address] Geriatric Physical Therapist: Abdulkadir Roy M.D. Ph.D.; CLIA# [id number] EMT/DISPATCHER AB IGG,S - [facility] 0.5 () U 08/02/2020 16:56 EDT [facility] Comment: REFERENCE VALUE <1.0 (Negative) SCL 70 AB, IGG,S - [facility] <0.2 () U 08/02/2020 16:56 T [facility] Comment: REFERENCE VALUE <1.0 (Negative) GRAFF AB IGG - [facility] <0.2 () U 08/02/2020 16:56 [facility] Comment: REFERENCE VALUE <1.0 (Negative) SS-A/RO AB, IGG,S - [facility] <0.2 () U 08/02/2020 16:56 [facility] Comment: REFERENCE VALUE <1.0 (Negative) SS-B/LA AB,IGG,S - [facility] <0.2 () U 08/02/2020 16:56 [facility] Comment: REFERENCE VALUE <1.0 (Negative) 07/28/2020 9:28 EDT 07/29/2020 11:29 EDT us Dena Stephenson MD CHEMISTRY & BLOOD GAS BILL S Final Result [facility] [address] [place] [address] * ANTI DNA (DOUBLE STRANDED) (07/28/2020 9:28 EDT) [facility] Anti DNA (DS) <12.3 <30.0 IU/mL [facility]2020 [facility] Comment: ? Negative: ??<30.0 IU/mL ? Borderline Positive: ??30.0 - 75.0 IU/mL ? Positive: ??>75.0 IU/mL Results were obtained with the [employer] QUANTA Lite dsDNA SC ZI assay on the [employer] DSX. Test performed [place] [address] * DS= DOUBLE-STRANDED 07/28/2020 9:28 EDT 07/29/2020 11:29 EDT us Dena Stephenson MD IMMUNOLOGY AND SEROLOGY ORDERAB LES Final Result Performing Organization Address City/State/[facility] Co de Phone Number [facility] [address] [place] [address] * HEPATIC FUNCTION PANEL (ALB,ALK PHOS,ALT,AST,DBIL,TOT SHADY,TOT PROT) (07/28/2020 9:26 EDT) [facility] Albumin % 4.2 3.4 - 4.9 g/dL 07/28/2020 11:10 [facility] ALKALINE PHOSPHATASE - [facility] 66 38 - 126 U/L 07/28/2020 11:10 [facility] BILIRUBIN DIRECT CALC - [facility] 0.0 0.0 - 0.4 mg/dL 07/28/2020 11:10 [facility] BILIRUBIN TOTAL 0.3 0.2 - 1.3 mg/dL 07/28/2020 11:10 [facility] Unconjugated Bilirubin 0.3 0.0 - 1.1 mg/dL 07/28/2020 11:10 [facility] TOTAL PROTEIN - [facility] 7.7 6.2 - 8.2 gm/dL 07/28/2020 11:10 [facility] SGOT/AST - [facility] 20 14 - 36 U/L 07/28/2020 11:10 EDT [facility] SGPT/ALT - [facility] 12 0 - 35 U/L 0 11:10 EDT [facility] 07/28/2020 9:26 EDT 07/28/2020 9:26 EDT Narrative [facility] - 07/28/2020 11:10 EDT Does PT Have a Latex Allergy? NO us Dena Stephenson MD CHEMISTRY & BLOOD GAS ORDERABLE S Final Result Performing Organization Address City/State/[facility] Co de Phone Number [facility] [address] [place] [address] documented in this encounter Visit Diagnoses Not on filedocumented in this encounter Care Teams Air Twister Winder Relationship Specialty Start Date End Date Grace Raya NP [address] [place] [address] PCP - General 05/19/20 documented as of this encounter
--- OUTSIDE RECORDS SUMMARY | 2024-10-26 18:54 | XMS_ITS | Encounter Summary ---
Author Organization [facility] Address [address] [place] [address] Care Team Providers Care Licensing Engineer Name Role Phone Julian Rayai Tessy AGRICULTURAL ECONOMICS TEACHER Primary Care Provider [phone] Encounter Details Date Type Department Care Team (Late Contact Info) Description 07/05/2022 Lab Requisition [facility] Pathology & Laboratory Medicine - [facility] [address] [place] [address] Outr Resulting Lab, Provider Social History Tobacco [...] In the last 10 days, have kenneth u been in contact with someone who [...] Info) Description 01/28/2025 8:30 EDT Office Visit [facility] Rheumatology [address] [place], [place] [address] Dena Stephenson MD 130 [facility] [address] [place] [address] documented as of this encounter Procedures Procedure Name Priority Date/Time Associated Diagnosis Comments CHLAMYDIA/N. GONORRHOEAE AMPLIFIED NUCLEIC ACID Routine 07/04/2022 14:30 EDT documented in this encounter Results * CHLAMYDIA/N. GONORRHOEAE AMPLIFIED RNA (07/04/2022 14:30 EDT) Neisseria gonorrhoeae Result Negative Negative 07/06/2022 15:21 EDT [facility] Chlamydia trachomatis Result Negative Negative 07/06/2022 15:21 EDT [facility] Swab ENTIRE VAGINA / Unknown 07/04/2022 14:30 EDT 07/05/2022 17:16 EDT us Provider Outr Resulting Lab MICROBIOLOGY - GENER AL ORDERABLES Final Result [facility] [address] [place] [address] documented in this encounter Visit Diagnoses Not on filedocumented in this encounter Care Teams Licensing Engineer Relationship Specialty Start Date End Date Grace Raya, AGRICULTURAL ECONOMICS TEACHER [address] [place] [address] PCP - General 05/19/20 documented as of this encounter
--- OUTSIDE RECORDS SUMMARY | 2024-10-26 18:54 | XMS_ITS | Encounter Summary ---
Author Organization [facility] Address [address] [place] [address] Care Team Providers Care Sheep Or Calf Grader Name Role Phone Grace Raya CAMPUS ADMINISTRATIVE ASSISTANT Primary Care Provider [phone] Encounter Details Date Type Department Care Team ([facility] st Contact Info) Description 05/26/2021 Orders Only [address] [address] Blanca Baez, RN [address] [place] [address] Immunity status testing (Primary Dx) Social History Tobacco Use Types [...] Info) Description 01/28/2025 8:30 EDT Office Visit [facility] Rheumatology [address] [place] [id number] Dena Stephenson MD [address] [facility] [address] [place] [phone] documented as of this encounter Visit Diagnoses Diagnosis Immunity status testing- Primary Antibody response examination documented in this encounter Care Teams Sheep Or Calf Grader Relationship Specialty Start Date End Date Grace Raya NP [address] [place], [place] [id number] PCP - General 05/19/20 documented as of this encounter
--- OUTSIDE RECORDS SUMMARY | 2024-10-26 18:54 | XMS_ITS | Encounter Summary ---
Author Organization [facility] Address [address] [place] [address] Care Team Providers Care Neurology Nurse Name Role Phone ElverGrace Tessy CRYSTAL GRINDER Primary Care Provider Reason for Visit * Reason Comments Flank Pain Pt reports Left flan k pain that now radiates into Left abd; states she thought she had a UTI a few days ago but sxs resolved. Encounter Details Date Type Department Care Team (Late st Contact Info) Description 07/01/2022 22:55 EDT - 07/01/2022 23:44 EDT Emergency [facility] Emergency Department - [address] [address] Kendall Yu MD [address] [place] [id number] Pyelonephritis (Primary Dx) Discharge Disposition: Home or Self [...] 22:54 EDT documented as of this encounter Last Filed Vital Signs Vital Sign Reading Time Taken Comments Blood Pressure 132/77 07/01/2022 2336 EDT Pulse 94 07/01/2022 2254 EDT Temperature 36.2 ??C (97.2 ??F) 07/01/2022 2336 EDT Respiratory Rate 15 07/01/2022 2254 EDT Oxygen Saturation 100% 07/01/2022 2336 EDT Inhaled Oxygen Concentration - - Weight 68 kg (150 lb) 07/01/2022 2254 EDT Height 157.5 cm (5' 2) 07/01/2022 2254 EDT Body Mass Index 27.44 07/01/2022 2254 EDT [...] * Discharge Instructions* Kendall Yu MD - 07/01/2022 23:06 EDT Please contact your primary care doctor [...] cannot be sent through Care Everywhere. * Pyelonephritis ([place]) documented in this encounter Medications at Time of Discharge albuterol 90 mcg/actuation inhaler citalopram (CELEXA) 20 mg tablet TAKE 1.5 TABLETS BY MOUTH EVERY DAY 12/17/2019 rizatriptan benzoate (RIZATRIPTAN ORAL) Take by mouth if needed (PRN for migraine). triamcinolone (ARISTOCORT) 0.5 % cream Apply topically 2 times daily. use thin layer, as needed cefpodoxime (VANTIN) 200 mg tablet Take 1 Tablet by mouth every 12 hours for 5 days. 10 Tablet 07/01/2022 2 gabapentin (NEURONTIN) 100 mg capsule Take 3 [...] Refills Last Filled Start Date End Date cefpodoxime (VANTIN) 200 mg tablet Take 1 Tablet by mouth every 12 hours for 5 days. 10 Tablet 07/01/2022 07/06/2022 cefpodoxime (VANTIN) 200 mg tablet Take 1 Tablet by mouth every 12 hours for 5 days. 10 Tablet 07/01/2022 07/01/2022 documented in this encounter Discharge Disposition Disposition Code Departure Means Destination Home or Self Snf documented in this encounter ED Notes * Kendall Yu MD - 07/01/2022 2303 EDT Emergency Department Visit Scribe attestation: This documentation is recorded by Rodrigo Tubbs acting as Scribe under the direction and presence of Kendall Yu MD. Kendall Yu MD: I personally performed the services recorded by the scribe in my presence. Iconfirm the scribe's documentation has been reviewed by me to accurately and completely record my work, treatment, procedures, and medical decision making. Assessment and ED Course A medical screening was performed. Assessment, plan, and medical decision making are reviewed below. See below. ED COURSE: Likely cystitis with pyelonephritis with no signs of sepsis. Will plan to treat her with third generation cefpodoxime. Return if she develops any newer concerns. Labs significant for 1+ leuk esterase, 3-10 RBC, 4-10 WBC and few urine squamous count. 2321: patient was given 1 package of cefpodoxime starter pack 2328: patient was given 100 mg of cefpodoxime tablet While under my care in the Emergency Department, the patient's pain was managed to an adequate level weighing risk vs. benefit of medication. Prior to discharge usual and customary precautions were reviewed with the patient and/or family including follow-up instructions and reasons to return to the Emergency Department if condition worsens, does not improve as expected, or other new concerns arise. Disposition: As noted in the electronic medical record or described above. Chief complaint: Chief Complaint Patient presents with ??? Flank Pain Pt reports Left flank pain that now radiates into Left abd; states she thought she had a UTI a few days ago but sxs resolved. HPI Liudmila Kiser is a 22 y.o. female with PMH including sacroiliitis, depression with anxiety, who presents to the ED for left sided flank pain associated with nausea but no vomiting. Patient does reports some bloating. Patient denies any antibiotic allergies. Patient's pertinent PMH, FH, SH were reviewed and edited as necessary. ROS A 10 point review of systems has been performed and is otherwise negative except as noted in the HPI. Physical Exam BP 134/81 (BP Cuff Location: Left arm, BP Patient Position: Sitting) Pulse 94 Temp 36 ??C (96.8??F) Resp 15 Ht 157.5 cm (62) Wt 68 kg (150 lb) SpO2 100% BMI 27.44 kg/m?? Nursing notes and vital signs were reviewed. Constitutional: Well appearing in mild distress Eyes: Pupils equal and reactive to light, no scleral icterus Mouth: Moist oral mucosa without apparent lesions Neck: Full ROM, no cervical LAD Heart: RRR. Strong peripheral pulses Lungs: Unlabored respirations without stridor or accessory muscle use Abdomen: Soft,nondistended. Left sided CVA tenderness with no rebound or guarding. Skin: No overt rashes on exposed skin Extremities: Moving spontaneously, warm and well perfused. Neuro: Grossly neurologically intact with normal speech and level of attention Psych: No agitation or overt thought disorder --- DATA AND PROCEDURES COMPLETED BY THE TIME OF DISPOSITION --- Laboratory Results Labs Reviewed URINE CHEMICAL (DIP) & SEDIMENT (MICRO) WITH REFLEX TO CULTURE - Abnormal Result Value Status Color UA Yellow Final Clarity UA Clear Final Glucose UA Negative Final Bilirubin UA Negative Final Ketones UA Negative Final Specific [place], Urine 1.011 Final Blood UA Negative Final Urobilinogen UA Normal Final Nitrite UA Negative Final Leukocyte Esterase UA 1+ (*) Final Protein UA Negative Final pH, UA 5.5 Final Urine RBC Count, Auto 3 - 10 (*) Final Urine WBC Count, Auto 4 - 10 (*) Final Urine Squamous Count, Auto Few (*) Final Urine Hyaline Cast Count, Auto <=10 Final Urine Bacteria Count, Auto None Seen Final Narrative: A Urine Culture test has been reflexively ordered based on result criteria from the Urine Sediment Analysis. Urine Sediment Analysis results are unreliable on urines that are unrefrigerated for >2 hrs or refrigerated >8 hrs. BACTERIAL CULTURE, URINE TEST, URINE Data Interpretation Please see ED course above. I independently reviewed imaging and laboratory results when available. Procedures Procedures Procedures Kendall Yu MD Emergency Medicine and Medical Toxicology Attending Physician documented in this encounter Plan of Treatment Upcoming Encounters Date Type Department Care Team (Late st Contact Info) Description 01/28/2025 8:30 EDT Office Visit [facility] Rheumatology [address] [place], [place] [phone] Dena Stephenson MD 130 [facility] [address] [place] [phone] documented as of this encounter Procedures Procedure Name Priority Date/Time Associated Diagnosis Comments URINE CHEMICAL (DIP) & SEDIMENT (MICRO) WITH REFLEX TO CULTURE STAT 07/01/2022 23:05 EDT TEST, URINE STAT 07/01/2022 23:05 EDT BACTERIAL CULTURE, URINE Today 07/01/2022 23:05 EDT documented in this encounter Results * BACTERIAL CULTURE, URINE (07/01/2022 23:05 EDT) Organism ID No Growth 07/02/2022 10:35 EDT [facility] Urine URINE SPECIMEN COLLECTION, CLEAN CATCH / Unknown Urine Collect / Unknown 07/01/2022 23:05 EDT 07/01/2022 23:38 EDT us Kendall Yu MD MICROBIOLOGY - GENERAL ORDER RIK Final Result [facility] [address] [place] [address] * TEST, URINE (07/01/2022 23:05 EDT) Test, Urine Negative Negative 07/01/2022 23:44 EDT [facility] Comment:False negative resul ts may occur in women who are beyond 5-8 weeks gestation. Diagnosis of should be based on a correlation of test results with typical clinical signs and symptoms. Urine URINE SPECIMEN COLLECTION, CLEAN CATCH / Unknown Urine Collect / Unknown 07/01/2022 23:05 EDT 07/01/2022 23:27 EDT us Kendall Yu MD URINALYSIS ORDERABLES Final Result [facility] [address] [place] [address] * (ABNORMAL) URINE CHEMICAL (DIP) & SEDIMENT (MICRO) WITH REFLEX TO CULTURE (07/01/2022 23:05 EDT) Color UA Yellow Colorless, Yellow 07/01/2022 23:38 [facility] Clarity UA Clear Clear 07/01/2022 23:38 [facility] Glucose UA Negative Negative 07/01/2022 23:38 [facility] Bilirubin UA Negative Negative 07/01/2022 23:38 [facility] Ketones UA Negative Negative 07/01/2022 23:38 [facility] Specific [place], Urine 1.011 1.001 - 1.035 07/01/2022 23:38 [facility] Blood UA Negative Negative 07/01/2022 23:38 [facility] Urobilinogen UA Normal Normal mg/dL 022 23:38 [facility] Nitrite UA Negative Negative 07/01/2022 23:38 [facility] Leukocyte Esterase UA 1+(A) Negative 07/01/2022 23:38 [facility] Protein UA Negative Negative 07/01/2022 23:38 [facility] pH, UA 5.5 4.6 - 8.0 07/01/2022 23:38 [facility] Urine RBC Count, Auto 3 - 10(A) 0 - 2 Cells/HPF 07/01/2022 23:38 [facility] Urine WBC Count, Auto 4 - 10(A) 0 - 3 Cells/HPF 07/01/2022 23:38 [facility] Urine Squamous Count, Auto Few(A) None Seen Cells/HPF 07/01/2022 23:38 [facility] Urine Hyaline Cast Count, Auto <=10 <=10 Casts/LPF 07/01/2022 23:38 EDT [facility] Urine Bacteria Count, Auto None Seen None Seen Bacteria/HPF 07/01/2022 23:38 EDT [facility] Urine URINE SPECIMEN COLLECTION, CLEAN CATCH / Unknown Urine Collect / Unknown 07/01/2022 23:05 EDT 07/01/2022 23:27 EDT Narrative [facility] - 07/01/2022 23:38 EDT A Urine Culture test has been reflexively ordered based on result criteria from the Urine Sediment Analysis. Urine Sediment Analysis results are unreliable on urines that are unrefrigerated for >2 hrs or refrigerated >8 hrs. us Kendall Yu MD URINALYSIS ORDERABLES Final Result [facility] [address] [place] [address] documented in this encounter Visit Diagnoses Diagnosis Pyelonephritis- Primary Pyelonephritis, unspecified documented in this encounter Administered Medications Inactive Administered Medications - up to 3 most recent administrations Medication Order MAR Action Action Date Dose Rate Site cefpodoxime (VANTIN) tablet 100 mg 100 mg, oral, NOW X1, 1 dose, On 07/01/22 at 2315, STAT Given 07/01/2022 23:28 EDT 100 mg cefpodoxime 100 mg tablet - starter pack 1 Package, oral, Once (Without Time Specified), 1 dose, Starting on 07/01/22 at 2305, Until 07/01/22 at 2321, STAT Given 07/01/2022 23:21 EDT 1 Package documented in this encounter Discontinued Medications Medication Sig Discontinue Reason Start Date End Da te cefpodoxime (VANTIN) 200 mg tablet Take 1 Tablet by mouth every 12 hours for 5 days. Reorder 07/01/2022 07/01/2022 documented as of this encounter Active and Recently Administered Medications Times are shown in EDT. Scheduled Medication Order 06/29/2022 06/30/2022 07/01/2022 cefpodoxime (VANTIN) tablet 100 mg (COMPLETED) 100 mg, oral, NOW X1, 1 dose, On 07/01/22 at 2315, STAT 2328 (Given - Provid er: Jon Burgos RN) cefpodoxime 100 mg tablet - starter pack (COMPLETED) 1 Package, oral, Once (Without Time Specified), 1 dose, Starting on 07/01/22 at 2305, Until 07/01/22 at 2321, STAT 2321 (Given - Provid er: Jon Burgos RN) documented in this encounter Care Teams Neurology Nurse Relationship Specialty Start Date End Date Grace Raya, CRYSTAL GRINDER [address] [place] [address] PCP - General 05/19/20 documented as of this encounter
--- OUTSIDE RECORDS SUMMARY | 2024-10-26 18:54 | XMS_ITS | Encounter Summary ---
Author Organization [facility] Address [address] [place] [address] Care Team Providers Care Pension Manager Name Role Phone Grace Raya IMPROVEMENT AUDITOR Primary Care Provider [phone] Encounter Details Date Type Department Care Team (Late st Contact Info) Description 02/17/2021 Orders Only [facility] Spine Program - [address] [place] [address] Ritchie Orellana PA-C [address] [facility] [place] [address] Low back pain, unspecified back pain laterality, unspecified chronicity, unspecified whether sciatica present (Primary Dx) Social History Tobacco Use Types [...] Description 01/28/2025 8:[address] [facility] Rheumatology [address] [place], [place] [phone] Dena Stephenson MD [address] [facility] [address] [place] [phone] documented as of this encounter Visit Diagnoses Diagnosis Low back pain, unspecified back pain laterality, unspecified chronicity, unspecified whether sciatica present- Primary documented in this encounter Care Teams Pension Manager Relationship Specialty Start Date End Date Grace Raya NP [address] [place], [place] [phone] PCP - General 05/19/20 documented as of this encounter
--- OUTSIDE RECORDS SUMMARY | 2024-10-26 18:54 | XMS_ITS | Encounter Summary ---
Author Organization [facility] Address [address] [place] [address] Care Team Providers Care Rv Repairer Name Role Phone Grace Raya SENIOR SALES ASSISTANT Primary Care Provider [phone] Encounter Details Date Type Department Care Team (Latest Contact Info) Description 10/14/2021 9:50 EST Phlebotomy Only [facility] - [employer] [address] [place] [address] Exposure to COVID-19 virus Social History Tobacco Use Types Packs/Day Years [...] Info) Description 01/28/2025 8:30 EDT Office Visit [facility] Rheumatology [address] [place] [address] Dena Stephenson MD [address] [place] [address] [place] [address] documented as of this encounter Procedures Procedure Name Priority Date/Time Associated Diagnosis Comments ZZCOVID-19 TEST [facility] PCR Today 10/14/2021 9:08 EST Exposure to COVID-19 virus COVID-19 TESTING Routine 10/14/2021 9:08 EST Exposure to COVID-19 virus documented in this encounter Results * COVID-19 TEST [facility] (10/14/2021 9:08 EST) Swab BOTH ANTERIOR NARES / Unknown Swab / Unknown 10/14/2021 9:08 EST 10/14/2021 9:08 EST us Jordan Ramsey MD MICROBIOLOGY - GENERAL ORDERABLES Final Result [facility] [address] [place] [address] * COVID-19 TESTING (10/14/2021 9:08 EST) COVID-19 rt-PCR Result Negative Negative 10/15/2021 15:15 EST [facility] Comment: This test has not [...] developed and its performance characteristics determined by [facility]. It has not been cleared or approved [...] testing. This test is based on the [facility] COVID-19 Emergency Use Authorization (EUA) assay, with minor modification as defined by the FDA Performed on the Flumeso 7 Pro RT-PCR System. Performing Lab [facility] 10/15/2021 15:15 EST [facility] Swab BOTH ANTERIOR NARES / Unknown Swab / Unknown 10/14/2021 9:08 EST 10/14/2021 9:08 EST us Jordan Ramsey MD MICROBIOLOGY - GENERAL ORDERABLES Final Result [facility] [address] [place] [address] documented in this encounter Visit Diagnoses Diagnosis Exposure to COVID-19 virus documented in this encounter Care Teams Rv Repairer Relationship Specialty Start Date End Date Grace Raya NP [address] [place] [address] PCP - General 05/19/20 documented as of this encounter
--- OUTSIDE RECORDS SUMMARY | 2024-10-26 18:54 | XMS_ITS | Encounter Summary ---
Author Organization [facility] Address [address] [place] [address] Care Team Providers Care Demolition Expert Name Role Phone ChinoGrace lynn Tessy CUMULATIVE EFFECTS ANALYST Primary Care Provider [phone] Encounter Details Date Type Department Care Team ([facility] Contact Info) Description 07/29/2020 Lab Requisition [facility] Pathology & Laboratory Medicine - [facility] [address] [place] [address] Outr Resulting Lab, Provider Social History Tobacco [...] Upcoming Encounters Date Type Department Care Team ([facility] Contact Info) Description 01/28/2025 8:30 EDT Office Visit [facility] Rheumatology [address] [place] [address] Dena Stephenson MD [address] [facility] [address] [place] [address] documented as of this encounter Procedures Procedure Name Priority Date/Time Associated Diagnosis Comments DOUBLE STRANDED DNA ANTIBODY, IGG Routine 07/28/2020 9:28 EDT documented in this encounter Results * ANTI DNA (DOUBLE STRANDED) (07/28/2020 9:28 EDT) Anti-DNA (Double Stranded) <12.3 <30.0 IU/mL 08/02/2020 11:41 EDT [facility] Comment: ? Negative: ??<30.0 IU/mL ? Borderline Positive: ??30.0 - 75.0 IU/mL ? Positive: ??>75.0 IU/mL Results were obtained with the [employer] QUANTA Lite dsDNA SC ZI assay on the [employer] DSX. Blood VENOUS BLOOD / Unknown 07/28/2020 9:28 EDT 07/29/2020 20:40 EDT us Provider Outr Resulting Lab IMMUNOLOGY AND SEROL OGY ORDERABLES Final Result [facility] [address] [place] [address] documented in this encounter Visit Diagnoses Not on filedocumented in this encounter Care Teams Demolition Expert Relationship Specialty Start Date End Date Grace Raya NP [address] [place] [address] PCP - General 05/19/20 documented as of this encounter
--- OUTSIDE RECORDS SUMMARY | 2024-10-26 18:54 | XMS_ITS | Encounter Summary ---
Author Organization [facility] Address [address] [place] [address] Care Team Providers Care Supervisor Fur Floor Worker Name Role Phone Julian Rayai Tessy CONFECTIONERY DROPS MACHINE OPERATOR Primary Care Provider [phone] Encounter Details Date Type Department Care Team (Latest Contact Info) Description 10/30/2021 Travel Social History Tobacco Use Types Packs/Day [...] EDT Office Visit [facility] Rheumatology [address] [place] [address] Dena Stephenson MD [address] [place] [address] [address] [place] [address] documented as of this encounter Visit Diagnoses Not on filedocumented in this encounter Care Teams Supervisor Fur Floor Worker Relationship Specialty Start Date End Date Grace Raya NP [address] [place] [address] PCP - General 05/19/20 documented as of this encounter
--- OUTSIDE RECORDS SUMMARY | 2024-10-26 18:54 | XMS_ITS | Encounter Summary ---
Author Organization [facility] Address [address] [place] [address] Care Team Providers Care Counselor Dormitory Name Role Phone Elver Grace Tessy NEW CAR SALES MANAGER Primary Care Provider [phone] Reason for Visit * Reason Comments Follow-up Encounter Details Date Type Department Care Team ([facility] Contact Info) Description 07/26/2020 16:30 EDT Telemedicine [facility] Rheumatology [address] [place] [address] Dena Stephenson MD [address] [facility] [address] [place] [address] Chronic right-sided low back pain with right-sided sciatica (Primary Dx); Positive EL (antinuclear antibody); Hyperproteinemia Social History Tobacco Use Types Packs/Day Years [...] 8:37 EDT documented as of this encounter Ordered Prescriptions Prescription Sig Dispense Quantity Refills Last Filled Start Date End Date nabumetone (RELAFEN) 750 mg tabletIndications:C hronic right-sided low back pain with right-sided sciatica Take 1 Tab by mouth 2 times daily. 60 Tab 1 07/26/2020 09/05/2020 documented in this encounter Progress Notes * Dena Stephenson MD - 07/26/2020 1630 EDT [facility] Telephone Visit Verbal consent: The concept of ???Telemedicine?? has been described to the patient. Patient has been informed of the anticipated benefits and possible risks. Patient understands the information provided regarding telemedicine, has had the opportunity to ask questions about this information, and all questions havebeen answered to patient???s satisfaction. Patient consents for the use of telemedicine in his/her medical care and authorizes the transmission of any relevant medical information to providers and their staff involved in patient???s medical or mental health care. Verbal consent obtained by myself or auxiliary staff: yes. Subjective: Chief Complaint(s): Follow-up HPI: Chronic right-sided low back pain with radicular features. Past xrays of the lumbar spine read as unremarkable in terms of the spine itself and question of sclerotic changes involving the LEFT SI joint -- Iris is symptomatic on the right. Iris has a h/o vitiligo, alopecia areata, and eczema -- these autoimmune conditions are commonly associated. 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 EL 160, homogeneous pattern. INTERVAL HISTORY: This is a follow up from initial consult in May for low back pain. I ordered some labs (see below)as well as MRI of the pelvis due to findings on xrays. 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 The differential includes psoriatic arthritis, reactive arthritis, rheumatoid arthritis, ankylosing spondylitis, enteropathic arthritis and SAPHO. Infection should also be considered in the appropriate clinical context. Iris continues with low back pain, right side only. At times pain is worst at end of day after a long shift. Other times it wakes her at night and she has a difficult time getting comfortable. She denies other pain. I have reviewed patient's tobacco history: reports that she has never smoked. She has never used smokeless tobacco. I have reviewed current problem list and current medications. ROS: ROJAS Denies any new issues since initial consultation on 05/19/20. Objective: Examination: Home Vitals: There were no vitals taken for this visit. Pertinent exam findings: speaking in full sentences and mood and affect appropriate Data reviewed with patient: Discussion of test results with performing physician Lab Requisition on 07/05/2020 Component Date Value Ref Range Status ??? Gonococcus Result 07/05/2020 Negative Negative Final ??? Chlamydia Result 07/05/2020 Negative Negative Final Lab Requisition on 05/19/2020 Component Date Value Ref Range Status ??? EL Interpretation 05/19/2020 Positive* Negative Final For titers greater than or equal to 1:160 (except the centromere and nucleolar patterns) it is recommended that specific follow-up autoantibody testing (such as for dsDNA and Extractable Nuclear Antigens) be performed on all diffuse and/or speckled patterns NOTE: For add-on testing dsDNA is stable for 7 days refrigerated while Extractable Nuclear Antigensare only stable for 48 hours refrigerated. ??? EL Titer and Pattern 1 05/19/2020 1:160 Homogeneous Final Office Visit on 05/19/2020 Component Date Value Ref Range Status ??? EL Interpretation 05/19/2020 Positive* Negative Final Comment: For titers greater than or equal to 1:160 (except the centromere and nucleolar patterns) it is recommended that specific follow-up autoantibody testing (such as for dsDNA and Extractable Nuclear Antigens) be performed on all diffuse and/or speckled patterns NOTE: For add-on testing dsDNA is stable for 7 days refrigerated while Extractable Nuclear Antigens are only stable for 48 hours refrigerated. ??? EL Titer and Pattern 1 05/19/2020 1:160 Homogeneous () Final Comment: Results were obtained with the [employer] NOVA Lite HEp-2 EL Kit by indirect immunofluorescence. Test performed or referred by The [address] [address] ??? ALBUMIN - [facility] 05/19/2020 4.9 3.4 - 4.9 g/dL Final ??? ALKALINE PHOSPHATASE - [facility] 05/19/2020 76 38 - 126 U/L Final ??? BILIRUBIN TOTAL - [facility] 05/19/2020 0.4 0.2 - 1.3 mg/dL Final ??? BUN - [facility] 05/19/2020 13 10 - 26 mg/dL Final ??? CALCIUM - CV 05/19/2020 9.9 8.5 - 10.5 mg/dL Final ??? Chloride 05/19/2020 100 96 - 110 mmol/L Final ??? CO2 Total 05/19/2020 20* 22 - 32 mEq/L Final ??? CREATININE 05/19/2020 0.57 0.52 - 1.04 mg/dL Final ? ? eGFR 05/19/2020 >60 Final Comment: Chronic renal impairment is defined as GFR <60 Multiply result by 1.210 for patients. eGFR calculated using the IDMS-traceable MDRD Study Equation. (effective 09/13/2014) ??? Anion Gap 05/19/2020 17 0 - 18 Final ??? GLUCOSE - [facility] 05/19/2020 91 70 - 100 mg/dL Final ??? Potassium 05/19/2020 4.1 3.5 - 5.0 mEq/L Final ??? Sodium 05/19/2020 137 136 - 145 mEq/L Final ??? TOTAL PROTEIN - [facility] 05/19/2020 8.9* 6.2 - 8.2 gm/dL Final ??? SGOT/AST - CV 05/19/2020 27 14 - 36 U/L Final ??? SGPT/ALT - [facility] 05/19/2020 15 0 - 35 U/L Final ? ? C-Reactive Protein 05/19/2020 5.5 <10.0 mg/L Final ??? Gran # 05/19/2020 8.2 2.2 - 8.85 10e3/uL Final ??? BASO # - [facility] 05/19/2020 0.06 0.01 - 0.11 10e/uL Final ??? BASO % - [facility] 05/19/2020 1 0 - 2 % Final ??? EOS # - [facility] 05/19/2020 0.27 0.03 - 0.61 10e3/ul Final ??? EOS % - [facility] 05/19/2020 2 0 - 5 % Final ??? GRAN % - [facility] 05/19/2020 68.1 40 - 80 % Final ??? HEMATOCRIT - [facility] 05/19/2020 41.7 34.9 - 44.4 % Final ??? HEMOGLOBIN - CV 05/19/2020 14.3 11.6 - 15.2 g/dl Final ??? IG# - [facility] 05/19/2020 0.06 0 - 0.7 10e3/uL Final ??? IG% - [facility] 05/19/2020 0.5 0 - 0.9 % Final ??? LYMPH # - [facility] 05/19/2020 2.7 1.09 - 3.3 10e3/ul Final ??? LYMPH% - [facility] 05/19/2020 22.6 20 - 40 % Final ??? MEAN CORPUSCULAR HGB - [facility] 05/19/2020 30.1 26.7 - 33.3 pg Final ??? MEAN CORPUSCULAR HGB CONC - [facility] 05/19/2020 34.3 32.1 - 35.9 g/dL Final ??? MEAN CELL VOLUME - [facility] 05/19/2020 87.8 81 - 98 fl Final ??? MONO # - [facility] 05/19/2020 0.7 0.1 - 0.8 10e3/uL Final ??? MONO% - [facility] 05/19/2020 6.0 0 - 12 % Final ??? PLATELET COUNT 05/19/2020 359 141 - 377 10e3/ul Final ??? RED BLOOD COUNT - [facility] 05/19/2020 4.75 3.86 - 5.04 10e3/ul Final ? ? RED CELL DISTRI WIDTH - [facility] 05/19/2020 12.5 <14.7 % Final ??? WHITE BLOOD COUNT - [facility] 05/19/2020 12.0 4.0 - 12.4 10e3/ul Final Lab Requisition on 05/12/2020 Component Date Value Ref Range Status ??? Quantiferon Interpretation 05/12/2020 Negative Negative Final No interferon-gamma response to M. tuberculosis antigens was detected. Infection with M. tuberculosis is unlikely. A single negative result does not exclude infection with M. tuberculosis. In patients at high risk for M. tuberculosis infection, a second test should be considered in accordance with the 2017 ATS/IDSA/CDC Clinical Practice Guidelines for Diagnosis of Tuberculosis in Adults and Children. [Sharifa SOUZA et. al. Clin. Infect. Dis. 2017:64 (2) : 111-115]. Results were obtained with the [employer] QuantiFERON TB Gold Plus ZI. ??? TB1 Ag minus Nil 05/12/2020 0.00 IU/ml Final ??? TB2 Ag minus Nil 05/12/2020 0.00 IU/mL Final Lab Requisition on 05/12/2020 Component Date Value Ref Range Status ??? Hep B Surface Ag 05/12/2020 Negative Negative Final ? ? Hep B Surface Ab, Quantitative 05/12/2020 <3.1 See Note mIU/mL Final Reference Range for Hep B Surface Ab, Quant: Positive: >= 10.0 mIU/mL Negative: < 10.0 mIU/mL Patient is presumed to not be immune to infection with Hepatitis B Virus. ??? Hep B Surface Ab, Qualitative 05/12/2020 Negative See Note Final Reference Range for Hep B Surface Ab, Qual: Unvaccinated: Negative Vaccinated: Positive ??? Hepatitis B Core Ab, Total 05/12/2020 Negative Negative Final ??? Mumps Antibody IgG 05/12/2020 Positive See Note Final Presence of detectable mumps virus IgG antibodies. ??? Rubella IgG Ab 05/12/2020 Positive See Note Final Positive for IgG antibodies to Rubella virus. ??? Measles IgG Ab 05/12/2020 Positive See Note Final Presence of detectable measles virus IgG antibodies. ??? Varicella IgG Ab 05/12/2020 Positive See Note Final Presence of detectable Varicella Zoster virus IgG antibodies. ??? Hold 05/12/2020 Hold Final Assessment & Plan: 1. Chronic right-sided low back pain with right-sided sciatica MRI with sign of inflammation. Because of the positive EL and history of alopecia areata, will check specific antibody tests (DS-DNA, anti-MATT). I had ordered these at the last visit, but Iris didn't have them done. Once I have these results, will help to determine course of treatment. For now, will try a 4-6 week trial of nabumetone. - nabumetone (RELAFEN) 750 mg tablet; Take 1 Tab by mouth 2 times daily. Dispense: 60 Tab; Refill: 1 2. Positive EL (antinuclear antibody) See above. 3. Hyperproteinemia Will recheck given last lab results. - HEPATIC FUNCTION PANEL (ALB,ALK PHOS,ALT,AST,DBIL,TOT SHADY,TOT PROT); Future Patient initiated phone contact with the office: yes. Patient is an established patient (parent, guardian) yes. E/M provided within previous 7 days for same medical assessment: no Anticipate E/M service within 24hrs or next available urgent appointment no. This visit was conducted by telephone. A total of 22 minutes was spent on this encounter on the dayof this encounter. Follow up in 6 weeks. Labs as ordered prior to next visit. documented in this encounter Plan of Treatment Upcoming Encounters Date Type Department Care Team (Late st Contact Info) Description 01/28/2025 8:30 EDT Office Visit [facility] Rheumatology [address] [place] [address] Dena Stephenson MD [address] [facility] [address] [place] [phone] documented as of this encounter Visit Diagnoses Diagnosis Chronic right-sided low back pain with right-sided sciatica- Primary Positive EL (antinuclear antibody) Other and unspecified nonspecific immunological findings Hyperproteinemia Other disorders of plasma protein metabolism documented in this encounter Discontinued Medications Medication Sig Discontinue Reason Start Date End Da te metroNIDAZOLE (METROGEL) 0.75 % vaginal gelIndications:Acute vaginitis Place 37.5 mg vaginally at bedtime. Therapy completed 02/07/2020 07/26/2020 documented as of this encounter Care Teams Counselor Dormitory Relationship Specialty Start Date End Date Grace Raya NP [address] [place] [address] PCP - General 05/19/20 documented as of this encounter
--- OUTSIDE RECORDS SUMMARY | 2024-10-26 18:54 | XMS_ITS | Encounter Summary ---
Author Organization [facility] Address [address] [place] [address] Care Team Providers Care Cloth Bleaching Supervisor Name Role Phone Grace Raya JEWISH HISTORY PROFESSOR Primary Care Provider [phone] Reason for Visit * Reason Onset Date Comments Appointment Related 10/23/2021 Encounter Details Date Type Department Care Team ([facility] Contact Info) Description 10/23/2021 Telephone [facility] Breast Imaging Mammography - [facility] [address] [place], [place] [id number] Suzy Lawrence Appointment Related Social History Tobacco Use Types [...] encounter Miscellaneous Notes * Telephone Encounter - Suzy Lawrence - 10/23/2021 1032 EST Spoke to patient to schedule a breast ultrasound. Patient accepted the next available opening. documented in this encounter Plan of Treatment Upcoming Encounters Date Type Department Care Team (Late st Contact Info) Description 01/28/2025 8:30 EDT Office Visit [facility] Rheumatology [address] [place] [address] Dena Stephenson MD [address] [facility] [address] [place] [phone] documented as of this encounter Visit Diagnoses Not on filedocumented in this encounter Care Teams Cloth Bleaching Supervisor Relationship Specialty Start Date End Date Grace Raya NP [address] [place] [address] PCP - General 05/19/20 documented as of this encounter
--- OUTSIDE RECORDS SUMMARY | 2024-10-26 18:55 | XMS_ITS ---
Author Organization [facility] Address [address] [place] [address] Care Team Providers Care Progress Worker Name Role Phone Grace Raya PATIENT ACCOUNTING REPRESENTATIVE Primary Care Provider [phone] Spondyloarthritis Status:Enrolled (Active) Start date:09/22/2024 Enrollment date:09/22/2024 Current support & services provided:Clinical Management, Refill Management, Benefits and PA Management Linked medications:adalimumab (Active) Linked problems:Sacroiliitis ([facility]) (Active) Case Team Name Relationship Phone Jese Becker [facility] Pharmacist(Responsible Staff) Continued Care and Services Coordination
--- OUTSIDE RECORDS SUMMARY | 2024-10-26 18:55 | XMS_ITS | Encounter Summary ---
Author Organization [facility] Address [address] [place] [address] Care Team Providers Care Correctional Supervisor Name Role Phone Grace Raya PARAFFIN PLANT SWEATER OPERATOR Primary Care Provider [phone] Reason for Visit * Reason Comments New Patient Visit Lower back pain, and hip pain that is constant. Also has pain and numbness in her legs and toes. When her back is really flared she can not feel her feet. Has not noticed anything that helps the pain. Encounter Details Date Type Department Care Team (Late st Contact Info) Description 05/19/2020 16:00 EDT Office Visit [facility] Rheumatology [address] [place] [address] Dena Stephenson MD [address] [place] [address] [address] [place] [address] Chronic right-sided low back pain with right-sided sciatica (Primary Dx); Positive EL (antinuclear antibody); Alopecia areata Social History Tobacco Use Types [...] Sign Reading Time Taken Comments Blood Pressure 118/70 05/19/2020 1545 EDT Pulse - - Temperature - - Respiratory Rate - - Oxygen Saturation - - Inhaled Oxygen Concentration - - Weight 68 kg (150 lb) 05/19/2020 1545 EDT Height 157.5 cm (5' 2) 05/19/2020 1545 EDT Body Mass Index 27.44 05/19/2020 1545 EDT documented in this encounter Patient Instructions * Patient Instructions* Dena Stephenson MD - 05/19/2020 16:00 EDT --Will review lab results and xrays at next visit. Will move up visit earlier if possible documented in this encounter Progress Notes * Dena Stephenson MD - 05/19/2020 1600 EDT [facility] Rheumatology Chief Complaint Patient presents with ??? New Patient Visit Lower back pain, and hip pain that is constant. Also has pain and numbness in her legs and toes. When her back is really flared she can not feel her feet. Has not noticed anything that helps the pain. HPI: Liudmila Kiser is a 19 year old woman who is here at the request of Grace Raya ACID SUPERVISOR for history of positive EL and low back pain. Liudmila says she has had low back pain since 8th grade. At times she experiences pain radiating to herright leg, laterally, and to her lateral ankle and foot. She says at times her lateral right foot and 4th and 5th toes go numb. She says finds it difficult to get comfortable at night and wakes up atnight due to back pain. Says sometimes she hurts all day. She cannot endorse a pattern of her back feeling better with activity and worse at rest. Says being in the water helps. Says right more than left knee throbs when having back pain. Neck also hurts when back hurts. Also has nausea when back is hurting. Ibuprofen 800 mg doesn't help. Gabapentin was prescribed, 300 mg, but it makes her groggy and difficult to concentrate. Doesn't think it helps either. Liudmila has done physical therapy for the back pain --says this was in 8th grade and episodically since then with minimal relief. Had episode of alopecia areata in 2018. Also has vitiligo and eczema as well -- behind ears and groin. Note from Grace Raya from 04/2018 indicated labs for EL, RF, TSH done but findings not available. Used to get migraines, but not often now. Gets frontal and occipital headaches now when back is hurting. Denies fatigue, dry eyes, dry mouth, family history of psoriasis, Raynaud's symptoms. Current Outpatient Medications: albuterol 90 mcg/actuation inhaler citalopram (CELEXA) 20 mg tablet gabapentin (NEURONTIN) 100 mg capsule levonorgestrel (MARIAN INTRAUTERINE) metroNIDAZOLE (METROGEL) 0.75 % vaginal gel No current facility-administered medications for this visit. Allergies include: Prednisone Patient Active Problem List Diagnosis ??? Exercise-induced asthma Family History: Arthritis on mother's side Social History: Works at [employer] at [employer]. Review of Systems: 13 point ROS was done with the patient. See scanned document for details. Pertinent positives and negatives are noted in the HPI. Physical Examination: BP 118/70 (BP Cuff Sizes: Adult, regular) Ht 157.5 cm (62) Wt 68 kg (150 lb) BMI 27.44 kg/m?? EYES: Conjunctivae not injected ENT: Wearing a mask. NECK: Normal extension and lateral rotation without pain. NO lymphadenopathy. LUNGS: Clear to auscultation bilaterally. CARDIOVASCULAR: Regular rate and rhythm. No murmur. No peripheral edema. ABDOMEN: Soft, non tender. No hepatosplenomegaly. JOINT EXAM: No synovitis of the joints of the hands, wrists, or feet. Mild bony prominence of [id number] MTP joint, nontender. Full painless ROM of shoulders, elbows, wrists, hips, knees and ankles. BACK: Very tender at right SI joint, as well as soft tissue around the right pelvis, greater trochanter and iliac crest. Nontender on contralateral areas. No pain with flexion of the back; some discomfort with flexion of back. SKIN: No rash on arms, legs, trunk. Hypopigmentation on forehead; no sign of alopecia areata on scalp. No nail pitting. No dilated capillary loops in the nail beds. NEURO: Strength 5/5. Sensation intact to light touch. Labs: Lab Requisition on 05/12/2020 Component Date Value [...] Ab 05/12/2020 Positive ??? Hold 05/12/2020 Hold Walk-In on 02/07/2020 Component Date Value ??? Clue Cells, POC 02/07/2020 Present* ??? Trichomonas, POC 02/07/2020 Absent ??? Yeast, POC 02/07/2020 Absent ??? White Blood Cells, POC 02/07/2020 Present* ??? CHLAMYDIA PCR - [facility] 02/07/2020 NOT DETECTED ??? GONORRHEA PCR - [facility] 02/07/2020 NOT DETECTED ??? SOURCE - [facility] 02/07/2020 VAGINAL ??? TRICHOMONAS VAGINALIS PC* 02/07/2020 NOT DETECTED Labs 08/12/19, [facility]: urine negative for protein, trace WBCs. No other labs available. Xrays lumbar spine, 08/12/19, [facility], indicated increased sclerosis of the left SI joint, and unremarkable lumbar spine. Assessment and Plan: 1. Chronic right-sided low back pain with right-sided sciatica Chronic right-sided low back pain with radicular features. Past xrays of the lumbar spine read as unremarkable in terms of the spine itself and question of sclerotic changes involving the LEFT SI joint -- Iris is symptomatic on the right. No labs available today. Iris has a h/o vitiligo, alopecia areata, and eczema -- these autoimmune conditions are commonly associated. The back pain does not have inflammatory features; it would be odd for a young person to have low back pain from degenerative causes. Will pursue further work due to the history of autoimmune conditions and her current symptoms. I also will obtain the images of the xrays and determine if MRI is needed. - COMPREHENSIVE METABOLIC PANEL (CMP) - C REACTIVE PROTEIN 2. Positive EL (antinuclear antibody) - ANTI NUCLEAR AB (EL), IFA - COMPLETE BLOOD COUNT AND DIFFERENTIAL - COMPREHENSIVE METABOLIC PANEL (CMP) - C REACTIVE PROTEIN 3. Alopecia areata - ANTI NUCLEAR AB (EL), IFA Follow up in a few weeks. Dena Stephenson MD 05/19/2020 15:57 documented in this encounter Plan of Treatment Upcoming Encounters Date Type Department Care Team (Late st Contact Info) Description 01/28/2025 8:30 EDT Office Visit [facility] Rheumatology [address] [place] [address] Dena Stephenson MD [address] [facility] [address] [place] [phone] Scheduled Orders Name Type Priority Associated Diagnoses Orde r Schedule COMPLETE BLOOD COUNT AND DIFFERENTIAL Lab Routine Positive EL (antinuclear antibody) Ordered: 05/19/2020 documented as of this encounter Procedures Procedure Name Priority Date/Time Associated Diagnosis Comments COMPLETE BLOOD COUNT WITH DIFFERENTIAL (AUTO) Routine 05/19/2020 16:43 EDT Chronic right-sided low back pain with right-sided sciatica C REACTIVE PROTEIN Routine 05/19/2020 16 :43 EDT Chronic right-sided low back pain with right-sided sciatica Positive EL (antinuclear antibody) ANTI NUCLEAR AB (EL), IFA Routine 05/19/2020 16:43 EDT Positive EL (antinuclear antibody) Alopecia areata COMPREHENSIVE METABOLIC PANEL (CMP) Routine 05/19/2020 16:43 EDT Chronic right-sided low back pain with right-sided sciatica Positive EL (antinuclear antibody) documented in this encounter Results * COMPLETE BLOOD COUNT WITH DIFFERENTIAL (AUTO) (05/19/2020 16:43 EDT) Gran # 8.2 2.2 - 8.85 10e3/uL 05/19/2020 18:34 [facility] BASO # - [facility] 0.06 0.01 - 0.11 10e/uL 05/19/2020 18:34 [facility] BASO % - [facility] 1 0 - 2 % 05/19/2020 18:34 [facility] EOS # - [facility] 0.27 0.03 - 0.61 10e3/ul 05/19/2020 18:34 [facility] EOS % - [facility] 2 0 - 5 % 05/19/2020 18:34 [facility] GRAN % - [facility] 68.1 40 - 80 % 05/19/2020 18:34 [facility] HEMATOCRIT - [facility] 41.7 34.9 - 44.4 % 05/19/2020 18:34 [facility] HEMOGLOBIN - [facility] 14.3 11.6 - 15.2 g/dl 05/19/2020 18:34 [facility] IG# - [facility] 0.06 0 - 0.7 10e3/uL 05/19/2020 18:34 [facility] IG% - [facility] 0.5 0 - 0.9 % 05/19/2020 18:34 [facility] LYMPH # - [facility] 2.7 1.09 - 3.3 10e3/ul 05/19/2020 18:34 [facility] LYMPH% - [facility] 22.6 20 - 40 % 05/19/2020 18:34 [facility] MEAN CORPUSCULAR HGB - [facility] 30.1 26.7 - 33.3 pg 05/19/2020 18:34 [facility] MEAN CORPUSCULAR HGB CONC - [facility] 34.3 32.1 - 35.9 g/dL 05/19/2020 18:34 [facility] MEAN CELL VOLUME - [facility] 87.8 81 - 98 fl 05/19/2020 18:34 [facility] MONO # - [facility] 0.7 0.1 - 0.8 10e3/uL 05/19/2020 18:34 [facility] MONO% - [facility] 6.0 0 - 12 % 05/19/2020 [facility]34 [facility] 359 141 - 377 10e3/ul 05/19/2020 18:34 EDT [facility] RED BLOOD COUNT - [facility] 4.75 3.86 - 5.04 10e3/ul 05/19/2020 18:34 [facility] RED CELL DISTRI WIDTH - [facility] 12.5 <14.7 % 05/19/2020 18:34 EDT [facility] WHITE BLOOD COUNT - [facility] 12.0 4.0 - 12.4 10e3/ul 05/19/2020 [facility] 05/19/2020 16:4 3 EDT 05/19/2020 17:14 EDT us Dena Stephenson MD HEMATOLOGY & PF4 ORDERABLES Fin al Result Performing Organization Address City/[facility]/ZIP Co de Phone Number [facility] [address] [place] [address] * C REACTIVE PROTEIN (05/19/2020 16:43 EDT) C-Reactive Protein 5.5 <10.0 mg/L 05/19/2020 17:56 EDT [facility] Blood VENOUS BLOOD / Unknown 05/19/2020 16:43 EDT 05/19/2020 17:14 EDT us Dena Stephenson MD CHEMISTRY & BLOOD GAS ORDERABLE S Final Result Performing Organization Address City/[facility]/ZIP Co de Phone Number [facility] [address] [place] [address] * (ABNORMAL) COMPREHENSIVE METABOLIC PANEL (CMP) (05/19/2020 16:43 EDT) Albumin % 4.9 3.4 - 4.9 g/dL 05/19/2020 17:56 EDT [facility] ALKALINE PHOSPHATASE - [facility] 76 38 - 126 U/L 05/19/2020 17:56 EDT [facility] BILIRUBIN TOTAL 0.4 0.2 - 1.3 mg/dL 05/19/2020 17:56 [facility] BUN - [facility] 13 10 - 26 mg/dL 05/19/2020 17:56 [facility] CALCIUM - [facility] 9.9 8.5 - 10.5 mg/dL 05/19/2020 17:56 [facility] Chloride 100 96 - 110 mmol/L 05/19/2020 17:56 [facility] CO2 Total 20(L) 22 - 32 mEq/L 05/19/2020 17:56 [facility] CREATININE 0.57 0.52 - 1.04 mg/dL 05/19/2020 17:56 [facility] eGFR >60 05/19/2020 17:56 [facility] Comment: Chronic renal impairment is defined as GFR <60 Multiply result by 1.210 for patients. eGFR calculated using the IDMS-traceable MDRD Study Equation. ??(effective 09/13/2014) Anion Gap 17 0 - 18 05/19/2020 17:56 [facility] GLUCOSE - [facility] 91 70 - 100 mg/dL 05/19/2020 17:56 [facility] Potassium 4.1 3.5 - 5.0 mEq/L 05/19/2020 17:56 [facility] Sodium 137 136 - 145 mEq/L 05/19/2020 17:56 [facility] TOTAL PROTEIN - [facility] 8.9(H) 6.2 - 8.2 gm/dL 05/19/2020 17:56 [facility] SGOT/AST - [facility] 27 14 - 36 U/L 05/19/2020 17:56 [facility] SGPT/ALT - [facility] 15 0 - 35 U/L 0 17:56 [facility] Blood VENOUS BLOOD / Unknown 05/19/2020 16:43 EDT 05/19/2020 17:14 EDT us Dena Stephenson MD CHEMISTRY & BLOOD GAS ORDERABLE S Final Result [facility] [address] [place] [address] * (ABNORMAL) ANTI NUCLEAR AB (EL), IFA (05/19/2020 16:43 EDT) EL Interpretation Positive(A) Negative 05/20/2020 15:11 EDT [facility] Comment: For titers greater than or equal to 1:160 (except the centromere and nucleolar patterns) it is recommended that specific follow-up autoantibody testing ??(such as for dsDNA and Extractable Nuclear Antigens) be performed on all diffuse and/or speckled patterns NOTE: For add-on testing dsDNA is stable for 7 days refrigerated while Extractable Nuclear Antigens are only stable for 48 hours refrigerated. EL Titer and Pattern 1 1:160 Homogeneous () 05/20/2020 15:11 EDT [facility] Comment: Results were obtained with the INOVA NOVA Lite HEp-2 EL Kit by indirect immunofluorescence. Test performed [place] [address] Blood VENOUS BLOOD / Unknown 05/19/2020 16:43 EDT 05/19/2020 17:14 EDT us Dena Stephenson MD IMMUNOLOGY AND SEROLOGY ORDERAB LES Final Result Performing Organization Address City/[facility] Co de Phone Number [facility] [address] [place] [address] documented in this encounter Visit Diagnoses Diagnosis Chronic right-sided low back pain with right-sided sciatica- Primary Positive EL (antinuclear antibody) Other and unspecified nonspecific immunological findings Alopecia areata documented in this encounter Care Teams Correctional Supervisor Relationship Specialty Start Date End Date Grace Raya NP [address] [place] [address] PCP - General 05/19/20 documented as of this encounter
--- OUTSIDE RECORDS SUMMARY | 2024-10-26 18:55 | XMS_ITS | Encounter Summary ---
Author Organization [facility] Address [address] [place] [address] Care Team Providers Care Nutritional Services Host Name Role Phone Unavailable Primary Care Provider Unavailabl e Reason for Visit * Reason Comments Vaginal Discharge Went to [facility], a month ago, was put on one-time dose of abx. Returned a week later. Dysuria Started a few days a go, not all the time. Also has vaginal odor. Encounter Details Date Type Department Care Team (Late Contact Info) Description 02/07/2020 8:00 EDT Walk-In [address] [address] Claudia Brandon, BRUCE [address] [facility] [address] [place], [place] [id number] Acute vaginitis (Primary Dx) Social History Tobacco Use Types Packs/Day Years Used Date Smoking Tobacco: Never Assessed Comments Unknown Sex and Gender Information Value Date Recorded Sex Assigned at Not on file Legal Sex Female 18:34 EST Gender Identity Female 02/07/2020 8:04 EDT Sexual Orientation Not on file documented as of this encounter Last Filed Vital Signs Vital Sign Reading Time Taken Comments Blood Pressure 100/62 02/07/2020 0820 EDT Pulse 78 02/07/2020 0820 EDT Temperature 36.5 ??C (97.7 ??F) 02/07/2020 0820 EDT Respiratory Rate 16 02/07/2020 0820 EDT Oxygen Saturation 100% 02/07/2020 0820 EDT Inhaled Oxygen Concentration - - Weight - - Height - - Body Mass Index - - documented in this encounter Ordered Prescriptions Prescription Sig Dispense Quantity Refills Last Filled Start Date End Date metroNIDAZOLE (METROGEL) 0.75 % vaginal gelIndications:Acu te vaginitis Place 37.5 mg vaginally at bedtime. 1 Tube 02/07/2020 0 documented in this encounter Progress Notes * Claudia Brandon, EARTH SCIENCE TECHNICIAN - 02/07/2020 0800 EDT [facility] Chief Complaint(s): Vaginal Discharge (Went to [facility], a month ago, was put on one- time dose of abx. Returned a week later.) and Dysuria (Started a few days ago, not all the time. Also has vaginal odor.) HPI: Onset approx one month ago with vaginal discharge. Associated with mild foul odor and burning with urination. The burning with urination is not consistent and started a few days ago. Has had 2 new partners. [facility] empirically for chlamydia with azithromycin and also treated for yeast but reports the GC was negative. Denies pelvic pain, fever, N/V or back pain. I have reviewed current problem list and current medications. ROS: Review of Systems Constitutional: Negative. Respiratory: Negative. Cardiovascular: Negative. Gastrointestinal: Negative. Genitourinary: Positive for dysuria. Negative for flank pain, frequency, hematuria and urgency. Musculoskeletal: Negative. Neurological: Negative. Objective: Examination: Vitals: BP 100/62 Pulse 78 Temp 36.5 ??C (97.7 ??F) (Oral) Resp 16 SpO2 100% There is no height or weight on file to calculate BMI. Physical Exam Constitutional: She is oriented to person, place, and time. She appears well- developed and well-nourished. No distress. Cardiovascular: Normal rate and regular rhythm. Pulmonary/Chest: Effort normal. Abdominal: Soft. She exhibits no distension. There is no tenderness. Genitourinary: Cervix exhibits no motion tenderness. Right adnexum displays no mass and no tenderness. Left adnexum displays no mass and no tenderness. No erythema or tenderness in the vagina. Vaginal discharge found. Neurological: She is alert and oriented to person, place, and time. Skin: Skin is warm and dry. Vitals reviewed. Data reviewed with patient (past results):Reviewed and/or ordered lab results tests Results for orders placed or performed in visit on 02/07/20 POCT VAGINAL WET PREP INCLUDES YARI Result Value Ref Range Clue Cells, POC Present (A) Absent Trichomonas, POC Absent Absent Yeast, POC Absent Absent White Blood Cells, POC Present (A) Absent Assessment & Plan: 1. Acute vaginitis GC sent however defers empiric treatment until result back. Will start metrogel for BV. - POCT VAGINAL WET PREP INCLUDES YARI - CHLAMYDIA/N. GONORRHOEAE AMPLIFIED RNA - MISCELLANEOUS TEST, NON [facility] - metroNIDAZOLE (METROGEL) 0.75 % vaginal gel; Place 37.5 mg vaginally at bedtime. Dispense: 1 Tube; Refill: 0 documented in this encounter Plan of Treatment Upcoming Encounters Date Type Department Care Team (Late st Contact Info) Description 01/28/2025 8:30 EDT Office Visit [facility] Rheumatology [address] [place] [address] Dena Stephenson MD [address] [facility] [address] [place] [address] Scheduled Orders Name Type Priority Associated Diagnoses Orde r Schedule CHLAMYDIA/N. GONORRHOEAE AMPLIFIED RNA Microbiology Routine Acute vaginitis Ordered: 02/07/2020 MISCELLANEOUS TEST, NON [facility] Lab Routine Acute vaginitis Ordered: 02/07/2020 documented as of this encounter Procedures Procedure Name Priority Date/Time Associated Diagnosis Comments TRICHOMONAS VAGINALIS PCR - [facility] Routine 02/07/2020 12:33 EDT Acute vaginitis GC/CHLAMYDIA PCR - [facility] Routine 02/07/2020 12:33 EDT Acute vaginitis POCT VAGINAL WET PREP INCLUDES YARI Routine 02/07/2020 8:45 EDT Acute vaginitis documented in this encounter Results * TRICHOMONAS VAGINALIS PCR - [facility] (02/07/2020 12:33 EDT) TRICHOMONAS VAGINALIS PCR NOT DETECTED 02/07/2020 15:02 EDT [facility] Comment: Xpert TV assay performance has not been evaluated in women or in patients with a history of hysterectomy. 02/07/2020 12:3 3 EDT 02/07/2020 12:33 EDT us Claudia Brandon SOLUTIONS DELIVERY CONSULTANT HEMATOLOGY & PF4 O RDERABLES Final Result [facility] * GC/CHLAMYDIA PCR - [facility] (02/07/2020 12:33 EDT) CHLAMYDIA PCR - [facility] NOT DETECTED 02/07/2020 15:30 EDT [facility] GONORRHEA PCR - [facility] NOT DETECTED 02/07/2020 15:30 EDT [facility] SOURCE VAGINAL 02/07/2020 15:02 EDT [facility] 02/07/2020 12:3 3 EDT 02/07/2020 12:33 EDT Claudia Brandon SOLUTIONS DELIVERY CONSULTANT CHEMISTRY & BLOOD GAS ORDERABLES Final Result [facility] * (ABNORMAL) POCT VAGINAL WET PREP INCLUDES YARI (02/07/2020 8:45 EDT) Clue Cells, POC Present(A) Absent [facility] Trichomonas, POC Absent Absent [facility] Yeast, POC Absent Absent [facility] White Blood Cells, POC Present(A) Absent [facility] Other ENTIRE VAGINA / Unknown 02/07/2020 8:45 EDT us Claudia Brandon NP POINT OF CARE TEST ORDERABLES Final Result [facility] documented in this encounter Visit Diagnoses Diagnosis Acute vaginitis- Primary Vaginitis and vulvovaginitis, unspecified documented in this encounter Historical Medications * This list may reflect changes made after this encounter. albuterol 90 mcg/actuation inhaler citalopram (CELEXA) 20 mg tablet TAKE 1.5 TABLETS BY MOUTH EVERY DAY 12/17/2019 levonorgestrel (MARIAN INTRAUTERINE) by intrauterine route. Put in 3 days ago. 3 gabapentin (NEURONTIN) 100 mg capsule Take 3 Capsules by mouth daily. 3-4 times weekly 12/17/2019 4 added in this encounter
--- OUTSIDE RECORDS SUMMARY | 2024-10-26 18:55 | XMS_ITS | Encounter Summary ---
Author Organization [facility] Address [address] [place] [address] Care Team Providers Care Commercial Correspondent Name Role Phone Unavailable Primary Care Provider Unavailabl e Reason for Visit * Reason Onset Date Comments Results 02/07/2020 Encounter Details Date Type Department Care Team ([facility] Contact Info) Description 02/07/2020 Telephone [facility] - [address] [address] Claudia Brandon, BRUCE [address] [facility] [address] [place] [id number] Results Social History Tobacco Use Types Packs/Day Years Used Date Smoking Tobacco: Never Assessed Comments Unknown Sex and Gender Information Value Date Recorded Sex Assigned at Not on file Legal Sex Female 18:34 EST Gender Identity Female 02/07/2020 8:04 EDT Sexual Orientation Not on file documented as of this encounter Miscellaneous Notes * Telephone Encounter - Sebas Chi - 02/07/2020 1637 EDT Patient called back. Read providers note, no further questions. * Telephone Encounter - Viktoriya Brown LPN - 02/07/2020 1556 EDT Message said voice mailbox not set up. @ 1555 pm Landy BROOKS * Telephone Encounter - Claudia Brandon APRN - 02/07/2020 1538 EDT Please inform patient that GC and trich are negative. She should continue with the plan to use the metro gel as prescribed. documented in this encounter Plan of Treatment Upcoming Encounters Date Type Department Care Team (Late st Contact Info) Description 01/28/2025 8:30 EDT Office Visit [facility] Rheumatology [address] [place] [address] Dena Stephenson MD [address] [facility] [address] [place] [phone] documented as of this encounter Visit Diagnoses Not on filedocumented in this encounter
--- OUTSIDE RECORDS SUMMARY | 2024-10-26 18:55 | XMS_ITS | Encounter Summary ---
Author Organization [facility] Address [address] [place] [address] Care Team Providers Care Jar Capper Name Role Phone Elver Grace Tessy CAFE HELPER Primary Care Provider [phone] Reason for Visit * Reason Onset Date Comments Follow-up 05/24/2020 Encounter Details Date Type Department Care Team ([facility] Contact Info) Description 05/24/2020 Telephone [facility] Rheumatology [address] [place], [place] [phone] Dena Stephenson MD [address] [facility] [address] [place] [address] Follow-up Social History Tobacco Use Types Packs/Day Years Used Date Smoking Tobacco: Never Smokeless Tobacco: Never Comments Unknown Sex and Gender Information Value Date Recorded Sex Assigned at Not on file Legal Sex Female 18:34 EST Gender Identity Female 02/07/2020 8:04 EDT Sexual Orientation Not on file documented as of this encounter Miscellaneous Notes * Telephone Encounter - Dena Stephenson MD - 06/08/20201999 EDT Yes, agree. Thank you. * Telephone Encounter - WhiteheadPrecious dobson - 06/08/2020 1054 EDT MRI scheduled for 06/27/2020. Contacted patient regarding date and time and patient stated she needed to reschedule and given the number to radiology to reschedule. Asked her to call back the office with the new date and time of her MRI so we can adjust a date and time for follow up with you for after the MRI. * Telephone Encounter - Dena Stephenson MD - 05/31/2020 2127 EDT Any luck in contacting this patient? Thanks. * Telephone Encounter - Precious Whitehead - 05/26/2020 1542 EDT Called patient twice to fill out MRI screening form. No VM set up. Called once 05/25/2020. Called again 05/26/2020. Unable to reach patient or leave voicemail to call back to go over MRI screening form. * Telephone Encounter - Lucila Alejo RN - 05/24/2020 1633 EDT Called pt and reviewed results and new orders with good understanding expressed.MRI ordered. 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 * Telephone Encounter - Dena Stephenson MD - 05/24/2020 1538 EDT Please call Iris and let her know that I was able to look at her xrays (pelvis) and based on the findings, I'd like to order MRI to help identify inflammation in the sacroiliac joints. Also, I reviewed her labs. EL is positive (which could be from the alopecia and vitiligo) but I'd like to order afew more specific antibodies. When she comes to [facility] to have the MRI, she can do the other labs as well. Will need to do screening form for the MRI. Please order: 1) MRI non-contrast, pelvis. Reason: Bilateral SI joint pain with question of inflammation on plainfilms, but not definitive. Need MRI to assist with diagnosis and treatment plan. 2) Please order: DS-DNA Anti-MATT DX: positive EL; joint pain Thanks. documented in this encounter Plan of Treatment Upcoming Encounters Date Type Department Care Team (Late st Contact Info) Description 01/28/2025 8:30 EDT Office Visit [facility] Rheumatology [address] [place], [place] [phone] Dena Stephenson MD [address] [facility] [address] [place] [address] documented as of this encounter Visit Diagnoses Not on filedocumented in this encounter Care Teams Jar Capper Relationship Specialty Start Date End Date Grace Raya NP [address] [place] [address] PCP - General 05/19/20 documented as of this encounter
--- OUTSIDE RECORDS SUMMARY | 2024-10-26 18:55 | XMS_ITS | Encounter Summary ---
Author Organization [facility] Address [address] [place] [address] Care Team Providers Care Heel Packer Name Role Phone Unavailable Primary Care Provider Unavailabl e Reason for Visit * Reason Onset Date Comments Appointment Related 07/03/2018 Encounter Details Date Type Department Care Team ([facility] Contact Info) Description 07/03/2018 Telephone [facility] Dermatology 5th [address] [phone] Tab Jaeger MD [address] [facility] [place] [address] Appointment Related Social History Tobacco Use Types Packs/Day Years Used Date Smoking Tobacco: Never Assessed Comments Unknown Sex and Gender Information Value Date Recorded Sex Assigned at Not on file Legal Sex Female 18:34 EST Gender Identity Female 02/07/2020 8:04 EDT Sexual Orientation Not on file documented as of this encounter Miscellaneous Notes * Telephone Encounter - Yulissa Neumann - 07/04/2018 0740 EDT Appointment on 07/07/18 has been cancelled * Telephone Encounter - Mara Blanco - 07/03/2018 1954 EDT PAS Message: The patient called to cancel her appointment on 07/07 at 1:00 pm as she said her problem healed andfeels there is no need for treatment. documented in this encounter Plan of Treatment Upcoming Encounters Date Type Department Care Team (Late st Contact Info) Description 01/28/2025 8:30 EDT Office Visit [facility] Rheumatology [address] [place] [address] Dena Stephenson MD [address] [place] [address] [address] [place] [id number] documented as of this encounter Visit Diagnoses Not on filedocumented in this encounter
--- OUTSIDE RECORDS SUMMARY | 2024-10-26 18:55 | XMS_ITS | Encounter Summary ---
Author Organization [facility] Address [address] [place] [address] Care Team Providers Care Research Test Engine Operator Name Role Phone Unavailable Primary Care Provider Unavailabl e Reason for Visit * Reason Onset Date Comments Appointment Related 06/30/2018 Encounter Details Date Type Department Care Team ([facility] Contact Info) Description 06/30/2018 Telephone [facility] Dermatology 3rd Floor [address] [phone] Tab Jaeger MD [address] [facility] [address] [place] [address] Appointment Related Social History Tobacco Use Types Packs/Day Years Used Date Smoking Tobacco: Never Assessed Comments Unknown Sex and Gender Information Value Date Recorded Sex Assigned at Not on file Legal Sex Female 18:34 EST Gender Identity Female 02/07/2020 8:04 EDT Sexual Orientation Not on file documented as of this encounter Miscellaneous Notes * Telephone Encounter - Rosa Guan - 06/30/2018 1049 EDT PAS Message: Cancel appt for this week documented in this encounter Plan of Treatment Upcoming Encounters Date Type Department Care Team ([facility] Contact Info) Description 01/28/2025 8:30 EDT Office Visit [facility] Rheumatology [address] [place] [phone] Dena Stephenson MD [address] [facility] [address] [place] [address] documented as of this encounter Visit Diagnoses Not on filedocumented in this encounter
--- OUTSIDE RECORDS SUMMARY | 2024-10-26 18:55 | XMS_ITS | Encounter Summary ---
Author Organization [facility] Address [address] [place] [address] Care Team Providers Care Crane Hoist Or Lift Operator Name Role Phone ChinoGrace lynn Tessy INPATIENT NURSING AIDE Primary Care Provider [phone] Encounter Details Date Type Department Care Team ([facility] Contact Info) Description 05/13/2020 Lab Requisition [facility] Pathology & Laboratory Medicine - [facility] [address] [place] [address] Outr Resulting Lab, Provider Social History Tobacco Use Types Packs/Day Years Used Date Smoking Tobacco: Never Assessed Comments Unknown Sex and Gender Information Value Date Recorded Sex Assigned at Not on file Legal Sex Female 18:34 EST Gender Identity Female 02/07/2020 8:04 EDT Sexual Orientation Not on file documented as of this encounter Plan of Treatment Upcoming Encounters Date Type Department Care Team ([facility] Contact Info) Description 01/28/2025 8:30 EDT Office Visit [facility] Rheumatology [address] [place], [place] [phone] Dena Stephenson MD [address] [facility] [address] [place] [address] documented as of this encounter Procedures Procedure Name Priority Date/Time Associated Diagnosis Comments QUANTIFERON TB GOLD PLUS Routine 05/12/2020 9:06 EDT documented in this encounter Results * QUANTIFERON TB GOLD PLUS (05/12/2020 9:06 EDT) Quantiferon Interpretation Negative Negative 05/16/2020 14:08 EDT [facility] Comment: No interferon-gamma response to [...] ZI. TB1 Ag minus Nil 0.00 IU/ml 05/16/20 14:08 EDT [facility] TB2 Ag minus Nil 0.00 IU/mL 05/16/20 14:08 EDT [facility] Blood VENOUS BLOOD / Unknown 05/12/2020 9:06 EDT 05/13/2020 15:13 EDT Narrative [facility] - 05/16/2020 14:08 EDT Results were obtained with the Qiagen QuantiFERON-TB Gold Plus ZI. us Provider Outr Resulting Lab CHEMISTRY & BLOOD GA S ORDERABLES Final Result [facility] [address] [place] [address] documented in this encounter Visit Diagnoses Not on filedocumented in this encounter Care Teams Crane Hoist Or Lift Operator Relationship Specialty Start Date End Date Grace Raya NP [address] [place] [address] PCP - General 05/19/20 documented as of this encounter
--- OUTSIDE RECORDS SUMMARY | 2024-10-26 18:55 | XMS_ITS | Encounter Summary ---
Author Organization [facility] Address [address] [place] [address] Care Team Providers Care Registered Health Nurse Name Role Phone Grace Raya Tessy BLOCK GREASER Primary Care Provider [phone] Encounter Details Date Type Department Care Team (Late Contact Info) Description 05/19/2020 Lab Requisition [facility] Pathology & Laboratory Medicine - [facility] [address] [place] [address] Outr Resulting Lab, Provider Social History Tobacco [...] 01/28/2025 8:30 EDT Office Visit [facility] Rheumatology [address] [place] [address] Dena Stephenson MD [address] [facility] [address] [place] [address] documented as of this encounter Procedures Procedure Name Priority Date/Time Associated Diagnosis Comments ANTI NUCLEAR AB (EL), IFA Routine 05/19/2020 16:43 EDT documented in this encounter Results * (ABNORMAL) ANTI NUCLEAR AB (EL), IFA (05/19/2020 16:43 EDT) EL Interpretation Positive(A) Negative 05/20/2020 14:51 EDT [facility] Comment: For titers greater than or equal [...] EL Titer and Pattern 1 1:160 Homogeneous 05/20/2020 14:51 EDT [facility] Blood VENOUS BLOOD / Unknown 05/19/2020 16:43 EDT 05/19/2020 21:44 EDT Narrative [facility] - 05/20/2020 14:51 EDT Results were obtained with the INOVA NOVA Lite HEp-2 EL Kit by indirect immunofluorescence. us Provider Outr Resulting Lab IMMUNOLOGY AND SEROL OGY ORDERABLES Final Result [facility] [address] [place] [address] documented in this encounter Visit Diagnoses Not on filedocumented in this encounter Care Teams Registered Health Nurse Relationship Specialty Start Date End Date Grace Raya NP [address] [place], [place] [address] PCP - General 05/19/20 documented as of this encounter
--- OUTSIDE RECORDS SUMMARY | 2024-10-26 18:55 | XMS_ITS | Encounter Summary ---
Author Organization [facility] Address [address] [place] [address] Care Team Providers Care Steam Box Hand Name Role Phone ChinoGrace lynn Tessy ENGINEERING TECH Primary Care Provider [phone] Encounter Details Date Type Department Care Team (Late Contact Info) Description 05/12/2020 Lab Requisition [facility] Pathology & Laboratory Medicine - [facility] [address] [place] [address] Outr Resulting Lab, Provider Social History Tobacco Use Types Packs/Day Years Used Date Smoking Tobacco: Never Assessed Comments Unknown Sex and Gender Information Value Date Recorded Sex Assigned at Not on file Legal Sex Female 18:34 EST Gender Identity Female 02/07/2020 8:04 EDT Sexual Orientation Not on file documented as of this encounter Plan of Treatment Upcoming Encounters Date Type Department Care Team ([facility] Contact Info) Description 01/28/2025 8:30 EDT Office Visit [facility] Rheumatology [address] [place], [place] [phone] Dena Stephenson MD [address] [facility] [address] [place] [address] documented as of this encounter Procedures Procedure Name Priority Date/Time Associated Diagnosis Comments HOLD SST Routine 05/12/2020 16:54 EDT MEASLES IGG AB Routine 05/12/2020 9:06 EDT HEPATITIS B PROFILE Routine 05/12/2020 9:06 EDT RUBELLA IGG ANTIBODY Routine 05/12/2020 9:06 EDT VARICELLA IGG ANTIBODY Routine 05/12/2020 9:06 EDT MUMPS ANTIBODY IGG Routine 05/12/2020 9:06 EDT documented in this encounter Results * HOLD SST (05/12/2020 16:54 EDT) Hold Hold 05/12/2020 18:01 EDT [facility] Blood VENOUS BLOOD / Unknown 05/12/2020 16:54 EDT 05/12/2020 16:54 EDT us Provider Outr Resulting Lab LAB INFO SERVICE AND SUPPORT & PHONE RESULT Final Result [facility] [address] [place] [address] * VARICELLA IGG ANTIBODY (05/12/2020 9:06 EDT) Varicella IgG Ab Positive See Note 05/13/2020 11:25 EDT [facility] Comment:Presence of detectab le Varicella Zoster virus IgG antibodies. Blood VENOUS BLOOD / Unknown 05/12/2020 9:06 EDT 05/12/2020 16:54 EDT us Provider Outr Resulting Lab IMMUNOLOGY AND SEROL OGY ORDERABLES Final Result [facility] [address] [place] [address] * MEASLES IGG AB (05/12/2020 9:06 EDT) Measles IgG Ab Positive See Note 05/13/2020 11:25 EDT [facility] Comment:Presence of detectab le measles virus IgG antibodies. Blood VENOUS BLOOD / Unknown 05/12/2020 9:06 EDT 05/12/2020 16:54 EDT us Provider Outr Resulting Lab IMMUNOLOGY AND SEROL OGY ORDERABLES Final Result Performing Organization Address [facility] Co de Phone Number [facility] [address] [place] [address] * RUBELLA IGG ANTIBODY (05/12/2020 9:06 EDT) Rubella IgG Ab Positive See Note 05/13/2020 11:35 EDT [facility] Comment:Positive for IgG ant ibodies to Rubella virus. Blood VENOUS BLOOD / Unknown 05/12/2020 9:06 EDT 05/12/2020 16:54 EDT us Provider Outr Resulting Lab CHEMISTRY & BLOOD GA S ORDERABLES Final Result Performing Organization Address [facility] Co de Phone Number [facility] [address] [place] [address] * MUMPS ANTIBODY IGG (05/12/2020 9:06 EDT) Mumps Antibody IgG Positive See Note 05/13/2020 11:34 EDT [facility] Comment:Presence of detectab le mumps virus IgG antibodies. Blood VENOUS BLOOD / Unknown 05/12/2020 9:06 EDT 05/12/2020 16:54 EDT us Provider Outr Resulting Lab IMMUNOLOGY AND SEROL OGY ORDERABLES Final Result Performing Organization Address [facility] Co de Phone Number [facility] [address] [place] [phone] * HEPATITIS B PROFILE (05/12/2020 9:06 EDT) Hep B Surface Ag Negative Negative 05/13/20 11:32 EDT [facility] Hep B Surface Ab, Quantitative <3.1 See Note mIU/mL 05/13/2020 11:32 EDT [facility] Comment: Reference Range for Hep B Surface Ab, Quant: Positive: >= 10.0 mIU/mL Negative: ??< 10.0 mIU/mL Patient is presumed to not be immune to infection with Hepatitis B Virus. Hep B Surface Ab, Qualitative Negative See Note 05/13/2020 11:32 EDT [facility] Comment: Reference Range for Hep B Surface Ab, Qual: Unvaccinated: ??Negative Vaccinated: ??Positive Hepatitis B Core Ab, Total Negative Negative 05/13/2020 11:32 EDT [facility] Blood VENOUS BLOOD / Unknown 05/12/2020 9:06 EDT 05/12/2020 16:54 EDT us Provider Outr Resulting Lab CHEMISTRY & BLOOD GA S ORDERABLES Final Result Performing Organization Address City/State/[facility] Co de Phone Number [facility] [address] [place] [address] documented in this encounter Visit Diagnoses Not on filedocumented in this encounter Care Teams Steam Box Hand Relationship Specialty Start Date End Date Grace Raya, ENGINEERING TECH [address] [place] [address] PCP - General 05/19/20 documented as of this encounter
[2024-10-26 22:44] LABS: Hemoglobin A1C 5.1 % (<5.7)
[2024-10-26 22:51] LABS: Calculated LDL 79 mg/dL (<100); Cholesterol 185 mg/dL (<200); HDL Cholesterol 90 mg/dL (40-60); Triglyceride 84 mg/dL (<150)
== END 2024-10-26 18:52 | disposition home or self-care (01) ==
LOC: NCHCN 18:51
PROVIDERS: PCP Nurse Practitioner Family; Visit Provider Nurse Practitioner Family
DX: Z13.1 Encounter for screening for diabetes mellitus (principal); Z13.220 Encounter for screening for lipoid disorders; Z00.00 Encounter for general adult medical examination without abnormal findings; Z12.4 Encounter for screening for malignant neoplasm of cervix
CPT/HCPCS: 80061; 88142; 83036; 87624

== ENCOUNTER 2025-03-09 12:13 | Outpatient (REF) | payer MEDICAID, SELFPAY ==
[2025-03-09 14:42] LABS: TSH 0.48 uIU/mL (0.36-3.74)
[2025-03-10 12:11] LABS: Chlamydia Result Negative (Negative); GC Result Negative (Negative)
== END 2025-03-09 12:14 | disposition home or self-care (01) ==
LOC: NCHCN 12:13
PROVIDERS: PCP Nurse Practitioner Family; Visit Provider Nurse Practitioner Family
DX: N93.9 Abnormal uterine and vaginal bleeding, unspecified (principal); R10.2 Pelvic and perineal pain
CPT/HCPCS: 87491; 87591; 84443